=== PATIENT | female | born 1935 | race Caucasian/White ===

== ENCOUNTER → 2016-12-23 | Outpatient (CLI) | payer MEDICARE, OTHER ==
[2016-12-23 13:00] LABS: ALANINE AMINOTRANSFERASE 12 U/L (9-52); ALBUMIN 4.2 g/dL (3.5-5.0); ALKALINE PHOSPHATASE 66 U/L (38-126); ASPARTATE AMINO TRANSFERASE 15 U/L (14-36); BILIRUBIN,TOTAL 0.4 mg/dL (0.2-1.3); CHOLESTEROL 221.64 mg/dL (0-200); Direct HDL 66 mg/dL (>40); TOTAL PROTEIN 6.6 g/dL (6.3-8.2); TRIGLYCERIDES 157 mg/dL (<150)
[2016-12-23 13:11] LABS: DIRECT LDL 115 mg/dL (<100)
[2016-12-23 13:12] LABS: VLDL CHOLESTEROL 31.4 mg/dL (10-31)
== END ==
LOC: OD 10:59
PROVIDERS: ATTEND Specialist
DX: I25.118 Atherosclerotic heart disease of native coronary artery with other forms of angina pectoris (principal); I10 Essential (primary) hypertension; E78.4 Other hyperlipidemia; E78.00 Pure hypercholesterolemia, unspecified; E03.9 Hypothyroidism, unspecified; I34.0 Nonrheumatic mitral (valve) insufficiency; I36.1 Nonrheumatic tricuspid (valve) insufficiency; I73.9 Peripheral vascular disease, unspecified; K21.9 Gastro-esophageal reflux disease without esophagitis; R09.89 Other specified symptoms and signs involving the circulatory and respiratory systems; E78.5 Hyperlipidemia, unspecified; Z79.899 Other long term (current) drug therapy; R06.00 Dyspnea, unspecified; R07.9 Chest pain, unspecified; F17.210 Nicotine dependence, cigarettes, uncomplicated; J44.9 Chronic obstructive pulmonary disease, unspecified; R42 Dizziness and giddiness
CPT/HCPCS: 36415; 80061; 80076

== ENCOUNTER → 2016-12-25 | Outpatient (CLI) | payer MEDICARE, OTHER | LOC: SP 13:48 | PROVIDERS: ATTEND Specialist | DX: R42 Dizziness and giddiness (principal) | CPT/HCPCS: 93880 ==

== ENCOUNTER → 2017-03-26 | Outpatient (CLI) | payer MEDICARE, OTHER ==
[2017-03-26 10:13] LABS: ALANINE AMINOTRANSFERASE 33 U/L (9-52); ALBUMIN 4.4 g/dL (3.5-5.0); ALKALINE PHOSPHATASE 70 U/L (38-126); ASPARTATE AMINO TRANSFERASE 25 U/L (14-36); BILIRUBIN,DIRECT 0.3 mg/dL (0.0-0.4); BILIRUBIN,TOTAL 0.6 mg/dL (0.2-1.3); CHOLESTEROL 181.07 mg/dL (0-200); Direct HDL 89 mg/dL (>40); TOTAL PROTEIN 7.1 g/dL (6.3-8.2); TRIGLYCERIDES 65 mg/dL (<150)
[2017-03-26 10:25] LABS: DIRECT LDL 63 mg/dL (<100)
== END ==
LOC: OD 09:01
PROVIDERS: ATTEND Specialist
DX: I25.10 Atherosclerotic heart disease of native coronary artery without angina pectoris (principal); I10 Essential (primary) hypertension; E78.4 Other hyperlipidemia; E78.00 Pure hypercholesterolemia, unspecified; E03.9 Hypothyroidism, unspecified; F17.210 Nicotine dependence, cigarettes, uncomplicated; I34.0 Nonrheumatic mitral (valve) insufficiency; I36.1 Nonrheumatic tricuspid (valve) insufficiency; I73.9 Peripheral vascular disease, unspecified; J44.9 Chronic obstructive pulmonary disease, unspecified; K21.9 Gastro-esophageal reflux disease without esophagitis; R06.00 Dyspnea, unspecified; R09.89 Other specified symptoms and signs involving the circulatory and respiratory systems; R42 Dizziness and giddiness; Z79.899 Other long term (current) drug therapy
CPT/HCPCS: 36415; 80061; 80076

== ENCOUNTER → 2017-06-22 | Outpatient (CLI) | payer MEDICARE, OTHER ==
--- NOTE | 2017-06-22 17:25 | RADIOLOGY REPORT (SQ) ---
EXAM DESCRIPTION: KNEE LEFT 4 VIEWS COMPLETED DATE/TIME: 06/22/2017 3:46 pm REASON FOR STUDY: PAIN IN LEFT KNEE M25.561 PAIN IN RIGHT KNEE M25.562 PAIN IN LEFT KNEE COMPARISON: None. NUMBER OF VIEWS: Four views. TECHNIQUE: AP, lateral, and both oblique radiographic images acquired of the left knee. LIMITATIONS: None. FINDINGS: MINERALIZATION: Normal. BONES: No acute fracture or dislocation. No worrisome bone lesions. JOINT: Calcific densities are identified at the level of the medial and lateral menisci consistent wi th chondrocalcinosis. SOFT TISSUES: No soft tissue swelling. No radio-opaque foreign body. OTHER: No other significant finding. IMPRESSION: NO RADIOGRAPHIC EVIDENCE OF ACUTE INJURY. Chondrocalcinosis is noted above. Other fin dings as noted above TECHNICAL DOCUMENTATION: JOB ID: [id number] [employer]- All Rights Reserved
--- NOTE | 2017-06-22 17:28 | RADIOLOGY REPORT (SQ) ---
EXAM DESCRIPTION: KNEE RIGHT 4 VIEWS COMPLETED DATE/TIME: 06/22/2017 3:46 pm REASON FOR STUDY: PAIN IN RIGHT KNEE M25.561 PAIN IN RIGHT KNEE M25.562 PAIN IN LEFT KNEE COMPARISON: None. NUMBER OF VIEWS: Four views. TECHNIQUE: AP, lateral, and both oblique radiographic images acquired of the right knee. LIMITATIONS: None. FINDINGS: MINERALIZATION: Normal. BONES: No acute fracture or dislocation. No worrisome bone lesions. JOINT: No effusion. SOFT TISSUES: No soft tissue swelling. No radio-opaque foreign body. OTHER: There are some small punctate calcifications seen in the posterior aspect of the knee joint. IMPRESSION: There are some small cartilaginous or meniscal calcifications seen best on the lateral v iew posteriorly. No acute abnormality is present. TECHNICAL DOCUMENTATION: JOB ID: [id number] [employer]- All Rights Reserved
== END ==
LOC: OD 15:18
PROVIDERS: ATTEND Family Medicine
DX: M25.561 Pain in right knee (principal); M25.562 Pain in left knee

== ENCOUNTER → 2017-08-05 | Outpatient (CLI) | payer MEDICARE, OTHER ==
[2017-08-05 11:59] LABS: ALANINE AMINOTRANSFERASE 27 U/L (9-52); ALBUMIN 4.4 g/dL (3.5-5.0); ALKALINE PHOSPHATASE 74 U/L (38-126); ASPARTATE AMINO TRANSFERASE 22 U/L (14-36); BILIRUBIN,DIRECT 0.4 mg/dL (0.0-0.4); BILIRUBIN,TOTAL 0.6 mg/dL (0.2-1.3); CHOLESTEROL 202.69 mg/dL (0-200); Direct HDL 84 mg/dL (>40); TOTAL PROTEIN 6.7 g/dL (6.3-8.2); TRIGLYCERIDES 92 mg/dL (<150)
[2017-08-05 12:10] LABS: DIRECT LDL 99 mg/dL (<100)
== END ==
LOC: OD 10:53
PROVIDERS: ATTEND Specialist
DX: I25.10 Atherosclerotic heart disease of native coronary artery without angina pectoris (principal); I10 Essential (primary) hypertension; E78.4 Other hyperlipidemia; E78.00 Pure hypercholesterolemia, unspecified; E03.9 Hypothyroidism, unspecified; I34.0 Nonrheumatic mitral (valve) insufficiency; I36.1 Nonrheumatic tricuspid (valve) insufficiency; I73.9 Peripheral vascular disease, unspecified; K21.9 Gastro-esophageal reflux disease without esophagitis; R09.89 Other specified symptoms and signs involving the circulatory and respiratory systems; R07.9 Chest pain, unspecified; R06.00 Dyspnea, unspecified; F17.210 Nicotine dependence, cigarettes, uncomplicated; Z79.899 Other long term (current) drug therapy; J44.9 Chronic obstructive pulmonary disease, unspecified; R42 Dizziness and giddiness
CPT/HCPCS: 36415; 80061; 80076

== ENCOUNTER → 2018-03-11 | Outpatient (CLI) | payer MEDICARE, OTHER ==
[2018-03-11 15:02] LABS: ALANINE AMINOTRANSFERASE 25 U/L (9-52); ALBUMIN 4.2 g/dL (3.5-5.0); ALKALINE PHOSPHATASE 59 U/L (38-126); ASPARTATE AMINO TRANSFERASE 22 U/L (14-36); BILIRUBIN,DIRECT 0.3 mg/dL (0.0-0.4); BILIRUBIN,TOTAL 0.3 mg/dL (0.2-1.3); CHOLESTEROL 173.85 mg/dL (0-200); TOTAL PROTEIN 6.6 g/dL (6.3-8.2); TRIGLYCERIDES 87 mg/dL (<150)
[2018-03-11 15:13] LABS: DIRECT LDL 79 mg/dL (<100)
== END ==
LOC: OD 13:21
PROVIDERS: ATTEND Specialist
DX: I25.10 Atherosclerotic heart disease of native coronary artery without angina pectoris (principal); I10 Essential (primary) hypertension; E78.4 Other hyperlipidemia; E78.00 Pure hypercholesterolemia, unspecified; E03.9 Hypothyroidism, unspecified; I34.0 Nonrheumatic mitral (valve) insufficiency; I36.1 Nonrheumatic tricuspid (valve) insufficiency; I73.9 Peripheral vascular disease, unspecified; K21.9 Gastro-esophageal reflux disease without esophagitis; R09.89 Other specified symptoms and signs involving the circulatory and respiratory systems; R06.00 Dyspnea, unspecified; J44.9 Chronic obstructive pulmonary disease, unspecified; F17.210 Nicotine dependence, cigarettes, uncomplicated; R42 Dizziness and giddiness; Z79.899 Other long term (current) drug therapy
CPT/HCPCS: 36415; 80061; 80076

== ENCOUNTER → 2018-06-14 | Outpatient (CLI) | payer MEDICARE, OTHER ==
--- NOTE | 2018-06-14 17:23 | RADIOLOGY REPORT (SQ) ---
EXAM DESCRIPTION: LUMBAR SPINE COMPLETE COMPLETED DATE/TIME: 06/14/2018 5:05 pm REASON FOR STUDY: LUMBAGO WITH SCIATICA, RIGHT SIDE M54.41 LUMBAGO WITH SCIATICA, RIGHT SIDE COMPARISON: None. NUMBER OF VIEWS: Five views including obliques. TECHNIQUE: AP, lateral, oblique, and sacral radiographic images acquired of the lumbar spine. LIMITATIONS: None. FINDINGS: MINERALIZATION: Normal. SEGMENTATION: Normal. No transitional anatomy. ALIGNMENT: Normal. VERTEBRAE: Maintained height. No fracture or worrisome bone lesion. DISCS: There is mild narrowing at L4-5 and L5-S1. There is narrowing at L1-2. POSTERIOR ELEMENTS: Pedicles and facets are intact. No pars defect or posterior arch defects. HARDWARE: None in the spine. PARASPINAL SOFT TISSUES: Normal. PELVIS: Intact as visualized. No fractures or worrisome bone lesions. SI joints intact. OTHER: No other significant finding. IMPRESSION: Degenerative disc disease. TECHNICAL DOCUMENTATION: JOB ID: [id number] [employer]- All Rights Reserved Reading location - IP/workstation name: [email or web address]
== END ==
LOC: OD 16:22
PROVIDERS: ATTEND Family Medicine
DX: M54.41 Lumbago with sciatica, right side (principal)
CPT/HCPCS: 72110

== ENCOUNTER → 2018-06-30 | Outpatient (CLI) | payer MEDICARE, OTHER ==
[~2018-06-30] MED LIST: ALBUTEROL SULFATE 0.083% NEB 2.5 MG/3 ML AMPUL NEB ONE
== END ==
LOC: RT 10:21
PROVIDERS: ATTEND Specialist
DX: R06.02 Shortness of breath (principal)
CPT/HCPCS: 94729; 94060; A9270

== ENCOUNTER → 2018-10-21 | Outpatient (CLI) | payer MEDICARE, OTHER ==
--- NOTE | 2018-10-21 10:44 | RADIOLOGY REPORT (SQ) ---
EXAM DESCRIPTION: CT HEAD WITHOUT COMPLETED DATE/TIME: 10/21/2018 10:22 am REASON FOR STUDY: OTHER SPEECH DISTURBANCES (R47.89) R47.89 OTHER SPEECH DISTURBANCES COMPARISON: 02/19/2016. TECHNIQUE: Axial images acquired through the brain without intravenous contrast. Images reviewed wi th bone, brain and subdural windows. Additional sagittal and coronal reconstructions were generated. Images stored on PACS. All CT scanners at this facility use dose modulation, iterative reconstruction, and/or weight based d osing when appropriate to reduce radiation dose to as low as reasonably achievable (ALARA). [facility]: Dose Right [facility]: CareDose [facility]: Dose Right [facility]: Teradose 4D [facility]: [employer] RADIATION DOSE: CT Rad equipment meets quality standard of care and radiation dose reduction techniq ues were employed. CTDIvol: 48.6 mGy. DLP: 954 mGy-cm.mGy. LIMITATIONS: None. FINDINGS: VENTRICLES: Prominent. CEREBRUM: No masses. No hemorrhage. No midline shift. Areas of low density in the white matter mos t likely due to chronic micro-vascular ischemic change. No evidence for acute infarction. CEREBELLUM: No masses. No hemorrhage. No alteration of density. No evidence for acute infarction. EXTRAAXIAL SPACES: Age-related involutional change. No fluid collections. No masses. ORBITS AND GLOBE: No intra- or extraconal masses. Normal contour of globe without masses. CALVARIUM: No fracture. PARANASAL SINUSES: Mucous membrane thickening in the sphenoid sinus. No fluid levels. SOFT TISSUES: No mass or hematoma. OTHER: No other significant finding. IMPRESSION: CHRONIC CHANGES OF ATROPHY AND MICROVASCULAR ISCHEMIA. NO ACUTE PROCESS. EVIDENCE OF ACUTE STROKE: NO. TECHNICAL DOCUMENTATION: JOB ID: [id number] Quality ID # 436: Final reports with documentation of one or more dose reduction techniques (e.g., Au tomated exposure control, adjustment of the mA and/or kV according to patient size, use of iterative reconstruction technique) 2010 [employer]- All Rights Reserved Reading location - IP/workstation name: [email or web address]
--- NOTE | 2018-10-21 12:37 | RADIOLOGY REPORT (SQ) ---
EXAM DESCRIPTION: CAROTID DOPPLER COMPLETED DATE/TIME: 10/21/2018 11:25 am REASON FOR STUDY: OTHER SPEECH DISTURBANCES R47.89 OTHER SPEECH DISTURBANCES COMPARISON: 12/25/2016. TECHNIQUE: Grayscale ultrasound, Doppler velocity and spectra, and color Doppler images acquired of the extra-cranial carotid and vertebral arteries. Images stored on PACS. LIMITATIONS: None. FINDINGS: RIGHT CAROTID CCA Velocities: Within normal limits. ICA Velocities Peak systolic 0.88 m/s. End diastolic 0.21 m/s. Proximal ICA/CCA peak systolic ratio 1.6. Spectra normal. No significant plaque. LEFT CAROTID CCA Velocities: Within normal limits. ICA Velocities Peak systolic 1.5 m/s. End diastolic 0.32 m/s. Proximal ICA/CCA peak systolic ratio 2.8. Plaque in the proximal internal carotid artery. VERTEBRAL ARTERIES: Antegrade flow. Normal waveforms. SUBCLAVIAN ARTERIES: No finding. OTHER: No other significant finding. IMPRESSION: PLAQUE IN THE PROXIMAL LEFT INTERNAL CAROTID ARTERY WITH 50- 69% STENOSIS. NO CHANGE FR OM THE PRIOR STUDY. NO HEMODYNAMICALLY SIGNIFICANT STENOSIS ON THE RIGHT SIDE. COMMENT: Quality ID #195: Velocity criteria are extrapolated from the diameter data as defined by t he Society of Radiologists in Ultrasound Consensus Conference. Radiology 2003: 229; 340-346. TECHNICAL DOCUMENTATION: JOB ID: [id number] [employer]- All Rights Reserved Reading location - IP/workstation name: [email or web address]
== END ==
LOC: RAD 09:42
PROVIDERS: ATTEND Family Medicine
DX: R47.89 Other speech disturbances (principal); I65.22 Occlusion and stenosis of left carotid artery
CPT/HCPCS: 70450; 93880

== ENCOUNTER → 2019-10-03 | Outpatient (CLI) | payer MEDICARE, OTHER ==
--- NOTE | 2019-10-03 17:06 | RADIOLOGY REPORT (SQ) ---
EXAM DESCRIPTION: CHEST PA/LATERAL COMPLETED DATE/TIME: 10/03/2019 4:53 pm REASON FOR STUDY: SHORTNESS OF BREATH COMPARISON: 02/18/2019 EXAM PARAMETERS: NUMBER OF VIEWS: two views TECHNIQUE: Digital Frontal and Lateral radiographic views of the chest acquired. RADIATION DOSE: NA LIMITATIONS: none FINDINGS: LUNGS AND PLEURA: No opacities, masses or pneumothorax. No pleural effusion. Hyperinflati on with increased AP diameter and flattening of the hemidiaphragm. MEDIASTINUM AND HILAR STRUCTURES: No masses or contour abnormalities. HEART AND VASCULAR STRUCTURES: Heart normal size. No evidence for failure. Aortic atherosclerosis. BONES: No acute findings. HARDWARE: None in the chest. OTHER: No other significant finding. IMPRESSION: Emphysematous change without evidence of acute cardiopulmonary process. TECHNICAL DOCUMENTATION: JOB ID: [id number] [employer]- All Rights Reserved Reading location - IP/workstation name: [email or web address]
== END ==
LOC: OD 16:23
PROVIDERS: ATTEND Nurse Practitioner Family
DX: J43.9 Emphysema, unspecified (principal); R06.02 Shortness of breath
CPT/HCPCS: 71046

== ENCOUNTER 2019-10-14 17:54 | Inpatient (IN) | payer MEDICARE, OTHER ==
[2019-10-14] MEDS ORDERED: ACETAMINOPHEN 325 MG TABLET PO ONE (18:39)
--- NOTE | 2019-10-14 18:44 | ER Document Report ---
ED Medical Screen (RME) - General Chief Complaint: Headache Stated Complaint: HEADACHE Time Seen by Provider: 10/14/19 18:38 Primary Care Provider: DINAH CORRAL NP [Primary Care Provider] - Follow up as needed TRAVEL OUTSIDE OF THE [place] IN LAST 30 DAYS: No - HPI Notes: 10/14/19 18:40 Patient is an 84-year-old female history of hypertension, tobacco abuse with probable COPD who presents by EMS complaining of severe frontal left-sided headache that began around 4 PM today. During that time she had slurred speech and confusion noted by the family which is since improved otherwise. She is also complaining of chest pain. No injury. No fever. I have treated and performed a rapid initial assessment of this patient. A comprehensive ED assessment and evaluation of the patient, analysis of test results and completion of medical decision making process will be conducted by additional ED providers. I did notify charge and Dr. Munguia. PHYSICAL EXAMINATION: GENERAL: Well-appearing, well-nourished and in no acute distress. A&Ox4. Answers questions appropriately. HEAD: Atraumatic, normocephalic. Non-tender. EYES: Pupils equal round and reactive to light, extraocular movements intact, sclera anicteric, conjunctiva are normal. No nystagmus. ENT: Nares patent and without discharge. oropharynx clear without exudates. No tonsilar hypertrophy or erythema. Moist mucous membranes. NECK: Normal range of motion, supple without lymphadenopathy. No rigidity/meningismus. No midline tenderness. LUNGS: wheezes throughout. no retractions HEART: Regular rate and rhythm Musculoskeletal: Ext b/l: FROM to passive/active. Strength 5+/5. No deficits noted. No bony tenderness of extremities. Extremities: No cyanosis, clubbing, or edema b/l. Peripheral pulses 2+. Capillary refill less than 2 seconds. NEUROLOGICAL: NIH 0. GCS 15. Cranial nerves grossly intact. Normal speech, normal gait. Normal sensory, motor exams. Reflexes 2+ b/l. AMILCAR's negative. Pronator drift negative. Heel/rivers, finger/nose wnl. Romberg neg. PSYCH: Normal mood, normal affect. SKIN: Warm, Dry, normal turgor, no rashes or lesions noted. - Related Data Allergies/Adverse Reactions: trimethoprim [From Proloprim] Allergy (Unknown, Verified 03/15/16 09:51) RASH Home Medications: Blood pressure meds Past Medical History - Social History Chew tobacco use (# tins/day): No Frequency of alcohol use: None Drug Abuse: None - Past Medical History Cardiac Medical History: Reports: Hx Coronary Artery Disease, Hx Hypercholesterolemia, Hx Hypertension Denies: Hx Atrial Fibrillation, Hx Congestive Heart Failure, Hx Heart Attack, Hx Peripheral Vascular Disease, Hx Pulmonary Embolism, Hx Heart Murmur Pulmonary Medical History: Reports: Hx Bronchitis, Hx Pneumonia Denies: Hx Asthma, Hx COPD, Hx Respiratory Failure, Hx Sleep Apnea, Hx Tuberculosis Neurological Medical History: Denies: Hx Cerebrovascular Accident, Hx Seizures, Hx Parkinson's Disease Endocrine Medical History: Reports: Hx Hypothyroidism. Denies: Hx Graves' Disease, Hx Hyperthyroidism Renal/ Medical History: Reports: Hx Ovarian Cysts. Denies: Hx End Stage Renal Disease, Hx Kidney Stones, Hx Peritoneal Dialysis, Hx Pelvic Inflammatory Disease Malignancy Medical History: Denies: Hx Breast Cancer, Hx Cervical Cancer, Hx Leukemia, Hx Lung Cancer, Hx Ovarian Cancer GI Medical History: Reports: Hx Gastroesophageal Reflux Disease, Hx Hiatal Hernia. Denies: Hx Crohn's Disease, Hx Hepatitis, Hx Irritable Bowel, Hx Liver Failure, Hx Pancreatitis, Hx Ulcer Musculoskeltal Medical History: Reports Hx Arthritis, Denies Hx Fibromyalgia, Denies Hx Multiple Sclerosis, Denies Hx Systemic Lupus Erythematosus Skin Medical History: Denies Hx MRSA Psychiatric Medical History: Reports: Hx Depression Denies: Hx Bipolar Disorder, Hx Dementia, Hx Post Traumatic Stress Disorder, Hx Schizophrenia Traumatic Medical History: Reports: Hx Fractures - L ankle Infectious Medical History: Denies: Hx Hepatitis, Hx HIV Past Surgical History: Reports: Hx Appendectomy, Hx Cholecystectomy, Hx Orthopedic Surgery - left ankle, Hx Urinary Tract Surgery - bladder sling, Hx Vascular Surgery - right carotid surgery. Denies: Hx Bowel Surgery, Hx Section, Hx Colostomy, Hx Coronary Artery Bypass Graft, Hx Gastric Bypass Surgery, Hx Herniorrhaphy, Hx Hysterectomy, Hx Mastectomy, Hx Open Heart Surgery, Hx Pacemaker, Hx Tonsillectomy, Hx Tubal Ligation - Immunizations Hx Diphtheria, Pertussis, Tetanus Vaccination: Yes Physical Exam - Vital signs Vitals: Temp Pulse Resp BP Pulse Ox 99.0 F 46 L 17 135/56 H 92 10/14/19 18:19 10/14/19 18:19 10/14/19 18:19 10/14/19 18:19 10/14/19 18:19 Course - Vital Signs Vital signs: Temp Pulse Resp BP Pulse Ox 99.0 F 46 L 17 135/56 H 92 10/14/19 18:29 10/14/19 18:19 10/14/19 18:29 10/14/19 18:19 10/14/19 18:29 Doctor's Discharge - Discharge Referrals: DINAH CORRAL HEARING THERAPIST [Primary Care Provider] - Follow up as needed
--- NOTE | 2019-10-14 19:28 | RADIOLOGY REPORT (SQ) ---
EXAM DESCRIPTION: CHEST SINGLE VIEW COMPLETED DATE/TIME: 10/14/2019 7:19 pm REASON FOR STUDY: CP COMPARISON: 10/03/2018. FINDINGS: Single-view chest AP portable upright. Hyperinflated but clear lungs generally. Stable cardiomediastinal silhouette without evidence of congestive failure. No acute findings detected. TECHNICAL DOCUMENTATION: JOB ID: [id number] Reading location - IP/workstation name: [email or web address]
[2019-10-14 19:32] LABS: ABSOLUTE EOSINOPHILS # (AUTO) 0.1 10^3/uL (0.0-0.6); ABSOLUTE LYMPHOCYTES (AUTO) 1.2 10^3/uL (0.5-4.7); ABSOLUTE MONOCYTES (AUTO) 0.5 10^3/uL (0.1-1.4); ABSOLUTE NEUT (AUTO) 7.8 10^3/uL (1.7-8.2); BASOPHILS % (AUTO) 0.4 % (0-2); EOSINOPHILS % (AUTO) 0.7 % (0-6); HEMATOCRIT 39.1 % (36.0-47.0); HEMOGLOBIN 13.4 g/dL (12.0-15.5); LYMPHOCYTES % (AUTO) 12.4 % (13-45); MEAN CORPUSCULAR HEMOGLOBIN 32.3 pg (27.0-33.4); MEAN CORPUSCULAR HGB CONC 34.2 g/dL (32.0-36.0); MEAN CORPUSCULAR VOLUME 95 fl (80-97); MONOCYTES % (AUTO) 5.4 % (3-13); PLATELET COUNT 310 10^3/uL (150-450); RED BLOOD COUNT 4.13 10^6/uL (3.72-5.28); RED CELL DISTRIBUTION WIDTH 14.2 % (11.5-14.0); SEGMENTED NEUTROPHILS % (AUTO) 81.1 % (42-78); TOTAL CELLS COUNTED % (AUTO) 100 %; WHITE BLOOD COUNT 9.6 10^3/uL (4.0-10.5)
[2019-10-14 19:55] LABS: ALBUMIN 4.1 g/dL (3.5-5.0); ALKALINE PHOSPHATASE 59 U/L (38-126); ANION GAP 5 (5-19); ASPARTATE AMINO TRANSFERASE 24 U/L (14-36); BILIRUBIN,DIRECT 0.2 mg/dL (0.0-0.4); BILIRUBIN,TOTAL 0.3 mg/dL (0.2-1.3); BLOOD UREA NITROGEN 20 mg/dL (7-20); CALCIUM 9.6 mg/dL (8.4-10.2); CARBON DIOXIDE 32 mmol/L (22-30); CHLORIDE 97 mmol/L (98-107); GLUCOSE 104 mg/dL (75-110); POTASSIUM 4.9 mmol/L (3.6-5.0); TOTAL PROTEIN 6.7 g/dL (6.3-8.2)
[2019-10-14 20:03] LABS: INTERNATIONAL RATION (INR) 1.01; PROTHROMBIN TIME 13.3 SEC (11.4-15.4)
[2019-10-14 20:04] LABS: PARTIAL THROMBOPLASTIN TIME 28.8 SEC (23.5-35.8)
--- NOTE | 2019-10-14 20:59 | RADIOLOGY REPORT (SQ) ---
EXAM DESCRIPTION: CT head without contrast CLINICAL HISTORY: 84 years Female, severe headache, resolved slurred speech COMPARISON: None. TECHNIQUE: Axial images of the head were performed without the use of intravenous contrast, with sagittal and coronal reformatted images. This exam was performed according to our departmental dose-optimization program which includes use of Automated Exposure Control, adjustment of the mA and/or kV according to patient size and/or use of iterative reconstruction technique. FINDINGS: No evidence of acute hemorrhage or infarct. No evidence of mass or hydrocephalus. There is cortical atrophy and chronic white matter ischemic changes. The visualized paranasal sinuses are clear. IMPRESSION: No acute finding.
--- NOTE | 2019-10-14 21:38 | EKG REPORT ---
SEVERITY:- OTHERWISE NORMAL ECG - SINUS BRADYCARDIA : Confirmed by: Rakesh Jenkins MD 14-Oct-2019 21:37:28
[2019-10-14 21:50] LABS: APPEARANCE,URINE SLIGHTLY-CLOUDY; BILIRUBIN,URINE NEGATIVE (NEGATIVE); COLOR,URINE YELLOW; GLUCOSE, URINE NEGATIVE (NEGATIVE); KETONES,URINE TRACE mg/dL (NEGATIVE); PROTEIN,URINE 30 mg/dL (NEGATIVE); URINE SPECIFIC GRAVITY 1.019
[2019-10-14] MEDS ORDERED: ASPIRIN 81 MG TABLET, CHEWABLE PO ONE (22:55)
--- NOTE | 2019-10-14 22:57 | ER Document Report ---
ED Headache - General Chief Complaint: Headache Stated Complaint: HEADACHE Time Seen by Provider: 10/14/19 18:38 Information source: Patient Notes: 84-year-old woman presents to the emergency department with a history of sudden onset of speech difficulty and word finding difficulty. Also complained of severe headache and generalized weakness. Symptoms began at approximately 330 afternoon lasted for approximately 3 hours. She denies any prior history of similar episodes. She is a smoker. She takes medications for elevated cholesterol. Denies a history of prior stroke or TIAs. TRAVEL OUTSIDE OF THE [place] IN LAST 30 DAYS: No - Related Data Allergies/Adverse Reactions: trimethoprim [From Proloprim] Allergy (Unknown, Verified 01/15/16 09:51) RASH Home Medications: Blood pressure meds Past Medical History - Social History Smoking Status: Current Every Day Smoker Chew tobacco use (# tins/day): No Frequency of alcohol use: None Drug Abuse: None Family History: Reviewed & Not Pertinent Patient has suicidal ideation: No Patient has homicidal ideation: No - Past Medical History Cardiac Medical History: Reports: Hx Coronary Artery Disease, Hx Hypercholester olemia, Hx Hypertension Denies: Hx Atrial Fibrillation, Hx Congestive Heart Failure, Hx Heart Attack, Hx Peripheral Vascular Disease, Hx Pulmonary Embolism, Hx Heart Murmur Pulmonary Medical History: Reports: Hx Bronchitis, Hx Pneumonia Denies: Hx Asthma, Hx COPD, Hx Respiratory Failure, Hx Sleep Apnea, Hx Tuberculosis Neurological Medical History: Denies: Hx Cerebrovascular Accident, Hx Seizures, Hx Parkinson's Disease Endocrine Medical History: Reports: Hx Hypothyroidism. Denies: Hx Graves' Disease, Hx Hyperthyroidism Renal/ Medical History: Reports: Hx Ovarian Cysts. Denies: Hx End Stage Renal Disease, Hx Kidney Stones, Hx Peritoneal Dialysis, Hx Pelvic Inflammatory Disease Malignancy Medical History: Denies: Hx Breast Cancer, Hx Cervical Cancer, Hx Leukemia, Hx Lung Cancer, Hx Ovarian Cancer GI Medical History: Reports: Hx Gastroesophageal Reflux Disease, Hx Hiatal Hernia. Denies: Hx Crohn's Disease, Hx Hepatitis, Hx Irritable Bowel, Hx Liver Failure, Hx Pancreatitis, Hx Ulcer Musculoskeletal Medical History: Reports Hx Arthritis, Denies Hx Fibromyalgia, Denies Hx Multiple Sclerosis, Denies Hx Systemic Lupus Erythematosus Skin Medical History: Denies Hx MRSA Psychiatric Medical History: Reports: Hx Depression Denies: Hx Bipolar Disorder, Hx Dementia, Hx Post Traumatic Stress Disorder, Hx Schizophrenia Traumatic Medical History: Reports: Hx Fractures - L ankle Infectious Medical History: Denies: Hx Hepatitis, Hx HIV Past Surgical History: Reports: Hx Appendectomy, Hx Cholecystectomy, Hx Hysterectomy, Hx Orthopedic Surgery - left ankle, Hx Urinary Tract Surgery - bladder sling, Hx Vascular Surgery - right carotid surgery. Denies: Hx Bowel Surgery, Hx Section, Hx Colostomy, Hx Coronary Artery Bypass Graft, Hx Gastric Bypass Surgery, Hx Herniorrhaphy, Hx Mastectomy, Hx Open Heart Surgery, Hx Pacemaker, Hx Tonsillectomy, Hx Tubal Ligation - Immunizations Hx Diphtheria, Pertussis, Tetanus Vaccination: Yes Review of Systems - Review of Systems Notes: Constitutional: Negative for fever. HENT: Negative for sore throat. Eyes: Negative for visual changes. Cardiovascular: Negative for chest pain. Respiratory: Negative for shortness of breath. Gastrointestinal: Negative for abdominal pain, vomiting or diarrhea. Genitourinary: Negative for dysuria. Musculoskeletal: Negative for back pain. Skin: Negative for rash. Neurological: + Headaches, + weakness,+ speech difficulty 10 point ROS negative except as marked above and in HPI. Physical Exam - Vital signs Vitals: Temp Pulse Resp BP Pulse Ox 99.0 F 46 L 17 135/56 H 92 10/14/19 18:19 10/14/19 18:19 10/14/19 18:19 10/14/19 18:19 10/14/19 18:19 - Notes Notes: PHYSICAL EXAMINATION: Physical Exam: General: Well-nourished well-developed elderly female in no acute distress HEENT: NC/AT, pupils equal round and reactive to light, MM moist,nares clear, Neck: supple, no adenopathy, no masses. Lungs: clear, + bilateral wheezing, no rales no rhonchi CVS: Regular rate and rhythm no murmur gallop or rub Abdomen: Soft active nontender, no masses, no hepatosplenomegaly Ext: Left shoulder tenderness, No edema clubbing or cyanosis. Neuro: Alert and responsive, moving all 4 extremities on command, cranial nerves intact. Skin: Intact no open lesions, no rash PSYCH: Normal mood, normal affect. Course - Re-evaluation Re-evalutation: 10/14/19 22:54 Patient continues to have a headache, also chest tightness, + wheezing, nebulizer treatment given, I discussed with the patient the need to be brought into the hospital for observation and further testing regarding a possible TIA. Patient also has a 89-year-old temp and urine which reveals UTI. The patient and her family are in agreement with that plan. 10/14/19 22:58 - Vital Signs Vital signs: Temp Pulse Resp BP Pulse Ox 98.7 F 63 20 110/59 L 95 10/18/19 17:02 10/18/19 17:02 10/18/19 17:02 10/18/19 17:02 10/18/19 17:02 - Laboratory Result Diagrams: 10/18/19 06:02 10/18/19 06:02 Laboratory results interpreted by me: 10/14/19 10/14/19 10/14/19 19:25 19:25 21:37 RDW 14.2 H Lymph % (Auto) 12.4 L Seg Neutrophils % 81.1 H Sodium 134.3 L Chloride 97 L Carbon Dioxide 32 H Urine Protein 30 H Urine Ketones TRACE H Urine Urobilinogen 2.0 H Leukocyte Esterase Rfl MODERATE H Urine Ascorbic Acid 40 H 10/14/19 22:57 I have reviewed laboratory data and used this information and the treatment decisions regarding the patient. - Diagnostic Test Radiology reviewed: Image reviewed - CT scan head: No acute findings, no hemorrhage Chest x-ray: Hyperinflation, no infiltrate or effusion., Reports reviewed - EKG Interpretation by Me EKG shows normal: Sinus rhythm - Otherwise no significant abnormalities. Rate: Bradycardia Discharge - Discharge Clinical Impression: TIA (transient ischemic attack), Urinary tract infection Headache Qualifiers: Headache type: unspecified Headache chronicity pattern: acute headache Intractability: not intractable Qualified Code(s): R51 - Headache Condition: Fair Disposition: ADMITTED INPATIENT Admitting Provider: Eliu (Hospitalist) Unit Admitted: [facility]
[2019-10-14] MEDS ORDERED: CEFTRIAXONE INJ 1000 MG VIAL IV ONE (23:08)
[2019-10-14] MEDS ORDERED: IPRATROPIUM/ALBUTEROL 0.5-2.5 MG/3 ML AMPUL NEB ONE (23:11)
[2019-10-14] MEDS ORDERED: ACETAMINOPHEN 325 MG TABLET PO PRN (23:50)
[2019-10-14] MEDS ORDERED: DOCUSATE SODIUM 100 MG CAPSULE PO PRN (23:50)
[2019-10-14] MEDS ORDERED: MAGNESIUM HYDROXIDE SUSP 30 ML UDCUP PO PRN (23:50)
[2019-10-14] MEDS ORDERED: ONDANSETRON HCL INJ/PF 4 MG/2 ML SDV IV PRN (23:50)
[2019-10-14] MEDS ORDERED: HYDRALAZINE HCL INJ/PF 20 MG/1 ML SDV IV PRN (23:53)
[2019-10-14] MEDS ORDERED: MORPHINE SULFATE 10 MG/ML INJ IV PRN (23:53)
[2019-10-14] MEDS ORDERED: NICOTINE 7 MG/24 HR PATCH.TD24 TD PRN (23:54)
[2019-10-15] MEDS ORDERED: ATORVASTATIN CALCIUM 20 MG TABLET PO ONE (00:30)
[2019-10-15 02:08] LABS: CREATINE KINASE MB 0.83 ng/mL (<4.55)
[2019-10-15 02:13] LABS: TROPONIN I < 0.012 ng/mL
[2019-10-15] MEDS: FAMOTIDINE 20 MG TABLET PO SCH ×3 (02:31→22:17)
[2019-10-15] MEDS: TEMAZEPAM 15 MG CAPSULE PO PRN ×2 (02:31→23:49)
--- NOTE | 2019-10-15 03:44 | PDOC H&P ---
History of Present Illness Admission Date/PCP: 10/14/2019 23:24 SANDRITA COATS Patient complains of: Acute dysarthria History of Present Illness: LORELEI STARKS is a 84 year old female who presented via EMS to the emergency room with acute dysarthria. She admits the sudden onset of dysarthria accompanied by a severe throbbing left-sided headache (fronto-facial) at about 4 pM this afternoon. Her dysarthria and headache were associated with expressive aphasia, mild confusion and mild generalized weakness. Patient denied other associated or accompanying signs and symptoms. She denies prior similar episodes. She has not identified any aggravating or ameliorating factors for h er acute dysarthria. The patient's dysarthria, expressive aphasia, confusion and generalized weakness gradually resolved approximately 3 hours after onset, during her emergency room visit. Her headache persisted and is still present at the time of my evaluation. In the emergency room her head CT scan was negative for intracranial hemorrhage. She was noted to have mild pyuria but her evaluation was otherwise unremarkable. She was subsequently admitted to the hospital per the stroke protocol. Past Medical History Cardiac Medical History: Reports: Coronary Artery Disease, Hyperlipidema, Hypertension Denies: Atrial Fibrillation, Congestive Heart Failure, Myocardial Infarction, Peripheral Vascular Disease, Pulmonary Embolism, Heart Murmur Pulmonary Medical History: Reports: Bronchitis, Pneumonia Denies: Asthma, Chronic Obstructive Pulmonary Disease (COPD), Respiratory Failure, Sleep Apnea, Tuberculosis EENT Medical History: Reports: Cataracts - Bilateral, Eyes - Prescription glasses Denies: Ears - Hearing aids Neurological Medical History: Denies: Hemorrhagic CVA, Ischemic CVA, Seizures Endocrine Medical History: Reports: Hypothyroidism Denies: Diabetes Mellitus Type 1, Diabetes Mellitus Type 2, Hyperthyroidism, Obesity Renal/ Medical History: Denies: Chronic Kidney Disease, Nephrolithiasis Malignancy Medical History: Reports: None GI Medical History: Reports: Gastroesophageal Reflux Disease, Hiatal Hernia Denies: Cirrhosis, Crohn's Disease, Hepatitis, Ulcerative Colitis Musculoskeltal Medical History: Reports: Arthritis Denies: Fibromyalgia, Gout Skin Medical History: Denies: Eczema, Psoriasis Psychiatric Medical History: Reports: Depression Denies: Alcohol Dependency, Substance Abuse, Tobacco Dependency Traumatic Medical History: Reports: None Hematology: Denies: Anemia, Bleeding Tendencies Infectious Medical History: Reports: None Past Surgical History Past Surgical History: Reports: Appendectomy, Carotid Endarterectomy - Right, Cholecystectomy, Hysterectomy, Orthopedic Surgery - left ankle, Other - Bilateral cataracts, bladder surgery (suspension), gum surgery Social History Information Source: Patient Lives with: Spouse/Significant other Smoking Status: Current Every Day Smoker - Smokes 2 - 5 cigarettes/day Electronic Cigarette use?: No Frequency of Alcohol Use: None Hx Recreational Drug Use: No Drugs: None Hx Prescription Drug Abuse: No - Advance Directive Resuscitation Status: Full Code Surrogate healthcare decision maker:: Cristina Ryan Family History Family History: CAD, DM, Hypertension, Malignancy, Other - Son with Warnicke's syndrome Parental Family History Reviewed: Yes Children Family History Reviewed: Yes Sibling(s) Family History Reviewed.: Yes Medication/Allergy Home Medications: Alprazolam [Xanax Xr] 0.5 mg PO DAILY PRN 12/10/11 Aspirin [Aspirin 325 mg Tablet] 81 mg PO DAILY 12/10/11 Atorvastatin Calcium [Lipitor 20 Mg Tablet] 20 mg PO QHS 12/10/11 Levothyroxine Sodium [Synthroid 75 Mcg Tablet] 88 mcg PO DAILY 12/10/11 Trazodone HCl 50 mg PO DAILY 07/10/12 Cetirizine HCl [Zyrtec 10 mg Tablet] 10 mg PO DAILY 05/30/13 Clonidine HCl [Catapres 0.1 mg Tablet] 0.1 mg PO BID 05/30/13 Albuterol Sulfate [Ventolin HFA MDI 18 GM] 1 - 2 puff IH Q4H PRN #1 mdi 02/08/14 Citalopram Hydrobromide [Celexa 20 mg Tablet] 20 mg PO DAILY 02/08/14 Tolterodine Tartrate [Detrol] 4 mg PO DAILY 02/08/14 Amlodipine Besylate 2.5 mg PO DAILY 01/14/16 Cholecalciferol (Vitamin D3) [Vitamin D3 1000 Unit Tablet] 1,000 unit PO DAILY 01/14/16 Cyanocobalamin (Vitamin B-12) [Vitamin B12] 1,000 mcg PO DAILY 01/14/16 Esomeprazole Magnesium [Nexium] 20 mg PO DAILY 01/14/16 Krill/[place]-3/Dha/Epa/Lipids [Krill Oil 300 mg Softgel] 1 each PO DAILY 01/14/16 Cyclobenzaprine HCl [Flexeril 10 mg Tablet] 10 mg PO TIDP PRN #15 tab 02/19/16 Oxycodone HCl/Acetaminophen [Percocet 5-325 mg Tablet] 1 - 2 tab PO Q4H PRN #25 tablet 02/19/16 Allergies/Adverse Reactions: trimethoprim [From Proloprim] Allergy (Unknown, Verified 01/15/16 09:51) RASH Review of Systems Constitutional: PRESENT: as per HPI, headache(s), weakness. ABSENT: chills, fever(s) Eyes: ABSENT: visual disturbances, other - Eye pain Ears: ABSENT: hearing changes, other - Ear pain Nose, Mouth, and Throat: PRESENT: as per HPI, headache(s), mouth pain - With smoking. ABSENT: sore throat Cardiovascular: ABSENT: chest pain, palpitations Respiratory: ABSENT: cough, dyspnea Gastrointestinal: ABSENT: abdominal pain, constipation, diarrhea, nausea, vomiting Genitourinary: ABSENT: dysuria, hematuria Musculoskeletal: ABSENT: back pain, joint swelling, muscle weakness Integumentary: ABSENT: pruritus, rash Neurological: PRESENT: abnormal speech, confusion. ABSENT: convulsions, focal weakness, memory loss, syncope Psychiatric: ABSENT: anxiety, depression Endocrine: ABSENT: cold intolerance, heat intolerance Hematologic/Lymphatic: ABSENT: easy bleeding, easy bruising Allergic/Immunologic: ABSENT: seasonal rhinorrhea Physical Exam Vital Signs: Temp Pulse Resp BP Pulse Ox 99.0 F 45 L 17 155/72 H 99 10/14/19 18:29 10/14/19 19:18 10/14/19 19:18 10/14/19 19:18 10/14/19 19:18 Intake & Output 10/12/19 10/13/19 10/14/19 23:59 23:59 23:59 Weight 65.771 kg General appearance: PRESENT: no acute distress, cooperative Head exam: PRESENT: atraumatic, normocephalic Eye exam: PRESENT: conjunctiva pink, EOMI. ABSENT: conjunctival injection, scleral icterus Ear exam: PRESENT: normal external ear exam. ABSENT: bleeding, drainage Mouth exam: PRESENT: dry mucosa, neck supple Neck exam: ABSENT: thyromegaly, tracheal deviation Respiratory exam: PRESENT: decreased breath sounds - Mildly decreased breath sounds throughout all lung wick consistent with mild to moderate COPD, prolonged expiratory phas - Mildly prolonged expiratory phase throughout all lung wick, symmetrical, unlabored, wheezes - Mild wheezes throughout all lung wick Cardiovascular exam: PRESENT: bradycardia, RRR. ABSENT: clicks, gallop, rubs Pulses: PRESENT: normal radial pulses, normal dorsalis pedis pul Vascular exam: PRESENT: normal capillary refill. ABSENT: pallor GI/Abdominal exam: PRESENT: normal bowel sounds, soft. ABSENT: tenderness Rectal exam: PRESENT: deferred Extremities exam: ABSENT: joint swelling, pedal edema Musculoskeletal exam: ABSENT: deformity, dislocation Neurological exam: PRESENT: alert, oriented to person, oriented to place, oriented to time, oriented to situation, CN II-XII grossly intact, other - Mild short-term memory deficits noted. ABSENT: motor sensory deficit Psychiatric exam: PRESENT: appropriate affect, normal mood Skin exam: PRESENT: dry, intact, warm. ABSENT: jaundice, rash, urticaria Results Laboratory Results: 10/14/19 19:25 10/14/19 19:25 10/14/19 10/14/19 10/14/19 19:25 19:25 21:37 WBC 9.6 RBC 4.13 Hgb 13.4 Hct 39.1 MCV 95 MCH 32.3 MCHC 34.2 RDW 14.2 H Plt Count 310 Seg Neutrophils % 81.1 H Sodium 134.3 L Potassium 4.9 Chloride 97 L Carbon Dioxide 32 H Anion Gap 5 BUN 20 Creatinine 0.70 Est GFR ( Amer) > 60 Glucose 104 Calcium 9.6 Total Bilirubin 0.3 AST 24 Alkaline Phosphatase 59 Total Protein 6.7 Albumin 4.1 Urine Color YELLOW Urine Appearance SLIGHTLY-CLOUDY Urine pH 7.0 Ur Specific [place] 1.019 Urine Protein 30 H Urine Glucose (UA) NEGATIVE Urine Ketones TRACE H Urine Blood NEGATIVE Urine RBC (Auto) 1 10/14/19 19:25 Troponin I < 0.012 Impressions: Head CT 10/14/19 18:38 IMPRESSION: No acute finding. Assessment and Plan - Diagnosis (1) TIA (transient ischemic attack) Is this a current diagnosis for this admission?: Yes (2) Headache Qualifiers: Headache type: unspecified Headache chronicity pattern: acute headache Intractability: not intractable Qualified Code(s): R51 - Headache Is this a current diagnosis for this admission?: Yes (3) Pyuria Is this a current diagnosis for this admission?: Yes (4) Hypothyroidism Qualifiers: Hypothyroidism type: unspecified Qualified Code(s): E03.9 - Hypothyroidism, unspecified Is this a current diagnosis for this admission?: Yes (5) Hypertension Qualifiers: Hypertension type: essential hypertension Qualified Code(s): I10 - Ess ential (primary) hypertension Is this a current diagnosis for this admission?: Yes (6) Hyperlipidemia Qualifiers: Hyperlipidemia type: unspecified Qualified Code(s): E78.5 - Hyperlipidemia, unspecified Is this a current diagnosis for this admission?: Yes (7) Coronary artery disease Qualifiers: Coronary Disease-Associated Artery/Lesion type: [place] artery [place] vs. transplanted heart: [place] heart Associated angina: without angina Qualified Code(s): I25.10 - Atherosclerotic heart disease of [place] coronary artery without angina pectoris Is this a current diagnosis for this admission?: Yes (8) GERD (gastroesophageal reflux disease) Qualifiers: Esophagitis presence: esophagitis presence not specified Qualified Code(s): K21.9 - Gastro-esophageal reflux disease without esophagitis Is this a current diagnosis for this admission?: Yes (9) Chronic obstructive pulmonary disease Qualifiers: COPD type: unspecified COPD Qualified Code(s): J44.9 - Chronic obstructive pulmonary disease, unspecified Is this a current diagnosis for this admission?: Yes (10) Tobacco use disorder, mild, abuse Is this a current diagnosis for this admission?: Yes - Plan Summary Summary: Patient is admitted to the stroke protocol on [facility]. She will receive routine supportive and symptomatic cares. She will have an MRI of the brain with a carotid Doppler and an echocardiogram performed. She will be seen in consultation by the stroke nurse, social work administrator, PT, OT, speech therapy and the registered dietitian. She will be placed on a antiplatelet agent and her other medications for chronic medical problems will be continued as appropriate. She will use morphine sulfate 2 to 4 mg IV every 2 hours as needed for pain control. Routine laboratory evaluations will be obtained through the stroke protocol. Smoking cessation is advised and counseled briefly at the bedside. A nicotine replacement patch is available for the patient's use, if desired - Time Time Spent with patient: 25-34 minutes Smoking Cessation Education: 3 to 10 minutes Medications reviewed and adjusted accordingly: Yes Anticipated discharge: Home with Homehealth - Inpatient Certification Based on my medical assessment, after consideration of the patient's comorbidities, presenting symptoms, or acuity I expect that the services needed warrant INPATIENT care.: Yes I certify that my determination is in accordance with my understanding of Medicare's requirements for reasonable and necessary INPATIENT services [42 CFR 412.3e].: Yes Medical Necessity: Significant Comorbidiites Make Outpatient Treatment Too Risky, Need Close Monitoring Due to Risk of Patient Decompensation, Need For Continuous Telemetry Monitoring, Need for Neurological Checks, Risk of Compl ication if Not Cared For in Hospital
[2019-10-15] MEDS: LEVOTHYROXINE SODIUM 0.075 MG TABLET PO SCH (05:55)
[2019-10-15] MEDS: MORPHINE SULFATE 10 MG/ML INJ IV PRN ×4 (05:56→23:51)
[2019-10-15] MEDS: HEPARIN SOD (PORCINE) 5,000 UNIT/ML 1 ML VIAL SUBCUT SCH ×3 (06:06→22:17)
--- NOTE | 2019-10-15 08:09 | PDOC PROGRESS REPORT ---
Subjective Progress Note for:: 10/15/19 Subjective:: 10/15/2019-no complaints this a.m. Reason For Visit: TRANSIENT ISCHEMIC ATTACK WITH DYSARTHRIA AND Physical Exam Vital Signs: Temp Pulse Resp BP Pulse Ox 97.9 F 47 L 16 112/68 96 10/15/19 04:47 10/15/19 07:00 10/15/19 06:00 10/15/19 06:00 10/15/19 06:00 Intake & Output 10/14/19 10/15/19 10/16/19 06:59 06:59 06:59 Intake Total 100 Balance 100 Weight 59.2 kg General appearance: PRESENT: no acute distress, well-developed, well-nourished Head exam: PRESENT: atraumatic, normocephalic Eye exam: PRESENT: conjunctiva pink, EOMI, PERRLA. ABSENT: scleral icterus Ear exam: PRESENT: normal external ear exam Mouth exam: PRESENT: moist, tongue midline Neck exam: ABSENT: carotid bruit, JVD, lymphadenopathy, thyromegaly Respiratory exam: PRESENT: clear to auscultation thuy. ABSENT: rales, rhonchi, wheezes Cardiovascular exam: PRESENT: RRR. ABSENT: diastolic murmur, rubs, systolic murmur Pulses: PRESENT: normal dorsalis pedis pul Vascular exam: PRESENT: normal capillary refill GI/Abdominal exam: PRESENT: normal bowel sounds, soft. ABSENT: distended, guarding, mass, organolmegaly, rebound, tenderness Rectal exam: PRESENT: deferred Extremities exam: PRESENT: full ROM. ABSENT: calf tenderness, clubbing, pedal edema Neurological exam: PRESENT: alert, awake, oriented to person, oriented to place, oriented to time, oriented to situation, CN II-XII grossly intact. ABSENT: m otor sensory deficit Psychiatric exam: PRESENT: appropriate affect, normal mood. ABSENT: homicidal ideation, suicidal ideation Skin exam: PRESENT: dry, intact, warm. ABSENT: cyanosis, rash Results Laboratory Results: 10/14/19 19:25 10/14/19 19:25 10/14/19 10/14/19 10/14/19 19:25 19:25 21:37 WBC 9.6 RBC 4.13 Hgb 13.4 Hct 39.1 MCV 95 MCH 32.3 MCHC 34.2 RDW 14.2 H Plt Count 310 Seg Neutrophils % 81.1 H Sodium 134.3 L Potassium 4.9 Chloride 97 L Carbon Dioxide 32 H Anion Gap 5 BUN 20 Creatinine 0.70 Est GFR ( Amer) > 60 Glucose 104 Calcium 9.6 Total Bilirubin 0.3 AST 24 Alkaline Phosphatase 59 Total Protein 6.7 Albumin 4.1 Urine Color YELLOW Urine Appearance SLIGHTLY-CLOUDY Urine pH 7.0 Ur Specific [place] 1.019 Urine Protein 30 H Urine Glucose (UA) NEGATIVE Urine Ketones TRACE H Urine Blood NEGATIVE Urine RBC (Auto) 1 10/14/19 10/15/19 10/15/19 19:25 01:20 01:20 Creatine Kinase 35 CK-MB (CK-2) 0.83 Troponin I < 0.012 < 0.012 Impressions: Head CT 10/14/19 18:38 IMPRESSION: No acute finding. Assessment and Plan - Diagnosis (1) TIA (transient ischemic attack) Is this a current diagnosis for this admission?: Yes Plan: 10/15/2019-no deficits at this time. Awaiting further diagnostics. (2) Chronic obstructive pulmonary disease Qualifiers: COPD type: unspecified COPD Qualified Code(s): J44.9 - Chronic obstructive pulmonary disease, unspecified Is this a current diagnosis for this admission?: Yes Plan: 10/15/2019-chronic stable not in acute exacerbation (3) Coronary artery disease Qualifiers: Coronary Disease-Associated Artery/Lesion type: [place] artery [place] vs. transplanted heart: [place] heart Associated angina: without angina Qualified Code(s): I25.10 - Atherosclerotic heart disease of [place] coronary artery without angina pectoris Is this a current diagnosis for this admission?: Yes Plan: 10/15/2019-stable (4) GERD (gastroesophageal reflux disease) Qualifiers: Esophagitis presence: esophagitis presence not specified Qualified Code(s): K21.9 - Gastro-esophageal reflux disease without esophagitis Is this a current diagnosis for this admission?: Yes Plan: 10/15/2019-stable (5) Headache Qualifiers: Headache type: unspecified Headache chronicity pattern: acute headache Intractability: not intractable Qualified Code(s): R51 - Headache Is this a current diagnosis for this admission?: Yes Plan: 10/15/2019-resolved stable (6) Hyperlipidemia Qualifiers: Hyperlipidemia type: unspecified Qualified Code(s): E78.5 - Hyperlipidemia, unspecified Is this a current diagnosis for this admission?: Yes Plan: 10/15/2019-stable (7) Hypertension Qualifiers: Hypertension type: essential hypertension Qualified Code(s): I10 - Essential (primary) hypertension Is this a current diagnosis for this admission?: Yes Plan: 10/15/2019-stable (8) Hypothyroidism Qualifiers: Hypothyroidism type: unspecified Qualified Code(s): E03.9 - Hypothyroidism, unspecified Is this a current diagnosis for this admission?: Yes Plan: 10/15/2019-awaiting TSH (9) Pyuria Is this a current diagnosis for this admission?: Yes Plan: 10/15/2019-stable (10) Tobacco use disorder, mild, abuse Is this a current diagnosis for this admission?: Yes Plan: 10/15/2019-continue smoking cessation education (11) UTI (urinary tract infection) Is this a current diagnosis for this admission?: Yes Plan: 10/15/2019-Rocephin 1 g IV daily. Await cultures - Plan Summary Summary: Patient is admitted to the stroke protocol on [facility]. She will receive routine supportive and symptomatic cares. She will have an MRI of the brain with a carotid Doppler and an echocardiogram performed. She will be seen in consultation by the stroke nurse, social media coordinator, PT, OT, speech therapy and the registered dietitian. She will be placed on a antiplatelet agent and her other medications for chronic medical problems will be continued as appropriate. She will use morphine sulfate 2 to 4 mg IV every 2 hours as needed for pain control. Routine laboratory evaluations will be obtained through the stroke protocol. Smoking cessation is advised and counseled briefly at the bedside. A nicotine replacement patch is available for the patient's use, if desired - Time Time Spent with patient: 15-24 minutes - Inpatient Certification Based on my medical assessment, after consideration of the patient's comorbidities, presenting symptoms, or acuity I expect that the services needed warrant INPATIENT care.: Yes I certify that my determination is in accordance with my understanding of Medicare's requirements for reasonable and necessary INPATIENT services [42 CFR 412.3e].: Yes Medical Necessity: Need for IV Antibiotics
[2019-10-15 08:16] LABS: HEMATOCRIT 36.5 % (36.0-47.0); HEMOGLOBIN 12.5 g/dL (12.0-15.5); MEAN CORPUSCULAR HEMOGLOBIN 32.4 pg (27.0-33.4); MEAN CORPUSCULAR HGB CONC 34.2 g/dL (32.0-36.0); MEAN CORPUSCULAR VOLUME 95 fl (80-97); PLATELET COUNT 267 10^3/uL (150-450); RED BLOOD COUNT 3.84 10^6/uL (3.72-5.28); WHITE BLOOD COUNT 6.8 10^3/uL (4.0-10.5)
[2019-10-15 08:27] LABS: CHOLESTEROL 147.68 mg/dL (0-200); TRIGLYCERIDES 79 mg/dL (<150)
[2019-10-15 08:28] LABS: ANION GAP 8 (5-19); BLOOD UREA NITROGEN 18 mg/dL (7-20); CALCIUM 9.7 mg/dL (8.4-10.2); CARBON DIOXIDE 31 mmol/L (22-30); CHLORIDE 96 mmol/L (98-107); CREATINE KINASE 45 U/L (30-135); GLUCOSE 94 mg/dL (75-110); POTASSIUM 4.5 mmol/L (3.6-5.0)
[2019-10-15 08:38] LABS: DIRECT LDL 77 mg/dL (<100)
[2019-10-15 08:39] LABS: CREATINE KINASE MB 0.91 ng/mL (<4.55)
[2019-10-15 08:40] LABS: TROPONIN I < 0.012 ng/mL
[2019-10-15] MEDS: CLONIDINE HCL 0.1 MG TABLET PO SCH ×2 (10:08→17:44)
[2019-10-15] MEDS: AMLODIPINE BESYLATE 5 MG TABLET PO SCH (10:08)
[2019-10-15] MEDS: CLOPIDOGREL BISULFATE 75 MG TABLET PO SCH (10:09)
[2019-10-15] MEDS: ASPIRIN 81 MG TABLET, ENT COATED PO SCH (10:09)
[2019-10-15] MEDS: CEFTRIAXONE 1 GM/D5W RTU 1 GM/50 ML RTUPB IV SCH (10:12)
[2019-10-15] MEDS ORDERED: LORAZEPAM INJ 2 MG/1 ML VIAL ONE (13:09)
[2019-10-15] MEDS: LEVALBUTEROL HCL NEB 0.63 MG/3 ML AMPUL NEB PRN ×2 (14:08→21:10)
[2019-10-15 14:13] LABS: TROPONIN I < 0.012 ng/mL
--- NOTE | 2019-10-15 14:22 | RADIOLOGY REPORT (SQ) ---
EXAM DESCRIPTION: MRI HEAD WITHOUT COMPLETED DATE/TIME: 10/15/2019 1:54 pm REASON FOR STUDY: TIA with left sided headache COMPARISON: CT from yesterday. TECHNIQUE: Multiplanar imaging includes non-contrasted T1, T2, FLAIR, and diffusion with ADC map seq uences. Images stored on PACS. LIMITATIONS: None. FINDINGS: ANATOMY: No anomalies. Normal vascular flow voids. Pituitary fossa normal. CSF SPACES: Atrophy induced prominence of ventricles and CSF spaces. CEREBRUM: High signal intensity lesions scattered throughout the white matter on FLAIR imaging with d istribution suggesting micro-vascular ischemic changes. No evidence of hemorrhage, mass, or extraaxi al fluid collection. POSTERIOR FOSSA: No signal alteration. No hemorrhage. No edema, masses or mass effect. Internal flavio tory canals, cerebello-pontine angles, mastoids normal. DIFFUSION IMAGING: Negative for acute or sub-acute infarction. ORBITS: No masses. Globes normal. PARANASAL SINUSES: No fluid levels. Mucosa normal. OTHER: No other significant finding. IMPRESSION: ATROPHY AND CHRONIC MICRO-VASCULAR ISCHEMIC CHANGES. OTHERWISE NORMAL MRI OF THE BRAIN W ITHOUT INTRAVENOUS GADOLINIUM CONTRAST. EVIDENCE OF ACUTE STROKE: NO. TECHNICAL DOCUMENTATION: JOB ID: [id number] [employer]- All Rights Reserved Reading location - IP/workstation name: [email or web address]
[2019-10-15] MEDS: ATORVASTATIN CALCIUM 20 MG TABLET PO SCH (22:17)
[2019-10-16] MEDS ORDERED: CHLORPROMAZINE HCL INJ 25 MG/1 ML AMPULE ONE (01:55)
[2019-10-16] MEDS ORDERED: CHLORPROMAZINE HCL INJ 25 MG/1 ML AMPULE IV ONE (02:30)
[2019-10-16] MEDS: HEPARIN SOD (PORCINE) 5,000 UNIT/ML 1 ML VIAL SUBCUT SCH ×4 (05:03→21:40)
[2019-10-16] MEDS: LEVOTHYROXINE SODIUM 0.075 MG TABLET PO SCH (05:05)
--- NOTE | 2019-10-16 08:57 | PDOC PROGRESS REPORT ---
Subjective Progress Note for:: 10/16/19 Subjective:: 10/15/2019-no complaints this a.m. 10/16/2019--patient had a episode of extreme confusion overnight. Was placed in two-point restraints. Reason For Visit: TRANSIENT ISCHEMIC ATTACK WITH DYSARTHRIA AND Physical Exam Vital Signs: Temp Pulse Resp BP Pulse Ox 98.9 F 67 16 138/74 H 95 10/16/19 01:02 10/16/19 07:00 10/16/19 04:00 10/16/19 04:00 10/16/19 04:00 Intake & Output 10/15/19 10/16/19 10/17/19 06:59 06:59 06:59 Intake Total 100 722 Output Total 0 Balance 100 722 Weight 59.2 kg 69.1 kg General appearance: PRESENT: no acute distress, well-developed, well-nourished Neck exam: ABSENT: carotid bruit, JVD, lymphadenopathy, thyromegaly Respiratory exam: PRESENT: clear to auscultation thuy. ABSENT: rales, rhonchi, wheezes Cardiovascular exam: PRESENT: RRR. ABSENT: diastolic murmur, rubs, systolic murmur Pulses: PRESENT: +1 pedal pulses bilateral Vascular exam: PRESENT: normal capillary refill GI/Abdominal exam: PRESENT: normal bowel sounds, soft. ABSENT: distended, guarding, mass, organolmegaly, rebound, tenderness Extremities exam: PRESENT: full ROM. ABSENT: calf tenderness, clubbing, pedal edema Neurological exam: PRESENT: awake Psychiatric exam: PRESENT: agitated Skin exam: PRESENT: dry, intact, warm. ABSENT: cyanosis, rash Results Laboratory Results: 10/15/19 07:54 10/15/19 07:54 10/15/19 07:54 TSH 1.71 10/14/19 10/15/19 10/15/19 19:25 01:20 01:20 Creatine Kinase 35 CK-MB (CK-2) 0.83 Troponin I < 0.012 < 0.012 10/15/19 10/15/19 10/15/19 07:54 07:54 13:17 Creatine Kinase 45 61 CK-MB (CK-2) 0.91 Troponin I < 0.012 10/15/19 13:17 Creatine Kinase CK-MB (CK-2) 1.20 Troponin I < 0.012 Impressions: Head CT 10/14/19 18:38 IMPRESSION: No acute finding. Head MRI 10/15/19 00:00 IMPRESSION: ATROPHY AND CHRONIC MICRO-VASCULAR ISCHEMIC CHANGES. OTHERWISE NORMAL MRI OF THE BRAIN WITHOUT INTRAVENOUS GADOLINIUM CONTRAST. EVIDENCE OF ACUTE STROKE: NO. Assessment and Plan - Diagnosis (1) TIA (transient ischemic attack) Is this a current diagnosis for this admission?: Yes Plan: 10/15/2019-no deficits at this time. Awaiting further diagnostics. 10/16/2019-stable. Patient did have MRI which was negative. Awaiting carotid Doppler and echocardiogram. (2) Chronic obstructive pulmonary disease Qualifiers: COPD type: unspecified COPD Qualified Code(s): J44.9 - Chronic obstructive pulmonary disease, unspecified Is this a current diagnosis for this admission?: Yes Plan: 10/15/2019-chronic stable not in acute exacerbation 10/16/2019-stable at this time not in acute exacerbation (3) Coronary artery disease Qualifiers: Coronary Disease-Associated Artery/Lesion type: [place] artery [place] vs. transplanted heart: [place] heart Associated angina: without angina Qualified Code(s): I25.10 - Atherosclerotic heart disease of [place] coronary artery without angina pectoris Is this a current diagnosis for this admission?: Yes Plan: 10/15/2019-stable 10/16/2019-stable (4) GERD (gastroesophageal reflux disease) Qualifiers: Esophagitis presence: esophagitis presence not specified Qualified Code(s): K21.9 - Gastro-esophageal reflux disease without esophagitis Is this a current diagnosis for this admission?: Yes Plan: 10/15/2019-stable 10/16/2019-stable (5) Headache Qualifiers: Headache type: unspecified Headache chronicity pattern: acute headache Intractability: not intractable Qualified Code(s): R51 - Headache Is this a current diagnosis for this admission?: Yes Plan: 10/15/2019-resolved stable 10/16/2019-resolved stable (6) Hyperlipidemia Qualifiers: Hyperlipidemia type: unspecified Qualified Code(s): E78.5 - Hyperlipidemia, unspecified Is this a current diagnosis for this admission?: Yes Plan: 10/15/2019-stable 10/16/2019-stable (7) Hypertension Qualifiers: Hypertension type: essential hypertension Qualified Code(s): I10 - Essential (primary) hypertension Is this a current diagnosis for this admission?: Yes Plan: 10/15/2019-stable 10/16/2019-stable (8) Hypothyroidism Qualifiers: Hypothyroidism type: unspecified Qualified Code(s): E03.9 - Hypothyroidism, unspecified Is this a current diagnosis for this admission?: Yes Plan: 10/15/2019-awaiting TSH 10/16/2019-stable (9) Pyuria Is this a current diagnosis for this admission?: Yes Plan: 10/15/2019-stable 10/16/2019-stable (10) Tobacco use disorder, mild, abuse Is this a current diagnosis for this admission?: Yes Plan: 10/15/2019-continue smoking cessation education 10/16/2019-continue smoking cessation education (11) UTI (urinary tract infection) Is this a current diagnosis for this admission?: Yes Plan: 10/15/2019-Rocephin 1 g IV daily. Await cultures 10/16/2018-continue Rocephin. Culture still pending - Plan Summary Summary: Patient is admitted to the stroke protocol on [facility]U. She will receive routine supportive and symptomatic cares. She will have an MRI of the brain with a carotid Doppler and an echocardiogram performed. She will be seen in consultation by the stroke nurse, social contact worker, PT, OT, speech therapy and the registered dietitian. She will be placed on a antiplatelet agent and her other medications for chronic medical problems will be continued as appropriate. She will use morphine sulfate 2 to 4 mg IV every 2 hours as needed for pain control. Routine laboratory evaluations will be obtained through the stroke protocol. Smoking cessation is advised and counseled briefly at the bedside. A nicotine replacement patch is available for the patient's use, if desired - Time Time Spent with patient: 15-24 minutes - Inpatient Certification Based on my medical assessment, after consideration of the patient's comorbidities, presenting symptoms, or acuity I expect that the services needed warrant INPATIENT care.: Yes I certify that my determination is in accordance with my understanding of Medicare's requirements for reasonable and necessary INPATIENT services [42 CFR 412.3e].: Yes Medical Necessity: Significant Comorbidiites Make Outpatient Treatment Too Risky, Need Close Monitoring Due to Risk of Patient Decompensation, Need for IV Antibiotics
[2019-10-16] MEDS ORDERED: CHLORPROMAZINE HCL INJ 25 MG/1 ML AMPULE IV SCH (10:00)
[2019-10-16] MEDS ORDERED: LORAZEPAM INJ 2 MG/1 ML VIAL IV PRN (10:47)
[2019-10-16] MEDS: ASPIRIN 81 MG TABLET, ENT COATED PO SCH (11:50)
[2019-10-16] MEDS: CLONIDINE HCL 0.1 MG TABLET PO SCH ×3 (11:50→21:37)
[2019-10-16] MEDS: AMLODIPINE BESYLATE 5 MG TABLET PO SCH (11:50)
[2019-10-16] MEDS: FAMOTIDINE 20 MG TABLET PO SCH ×2 (11:51→21:40)
[2019-10-16] MEDS: CLOPIDOGREL BISULFATE 75 MG TABLET PO SCH (11:51)
[2019-10-16] MEDS: CEFTRIAXONE 1 GM/D5W RTU 1 GM/50 ML RTUPB IV SCH (11:53)
[2019-10-16] MEDS ORDERED: ZIPRASIDONE MESYLATE INJ/PF 20 MG SDV IM ONE (13:12)
[2019-10-16] MEDS: ATORVASTATIN CALCIUM 20 MG TABLET PO SCH (21:40)
[2019-10-17] MEDS ORDERED: HALOPERIDOL LACTATE INJ 5 MG/1 ML VIAL IV PRN (03:40)
[2019-10-17] MEDS ORDERED: LORAZEPAM INJ 2 MG/1 ML VIAL IV PRN (03:40)
[2019-10-17] MEDS: HEPARIN SOD (PORCINE) 5,000 UNIT/ML 1 ML VIAL SUBCUT SCH ×3 (05:22→23:11)
[2019-10-17] MEDS: LEVOTHYROXINE SODIUM 0.075 MG TABLET PO SCH (05:23)
--- NOTE | 2019-10-17 09:06 | PDOC PROGRESS REPORT ---
Subjective Progress Note for:: 10/17/19 Subjective:: 10/15/2019-no complaints this a.m. 10/16/2019--patient had a episode of extreme confusion overnight. Was placed in two-point restraints. 10/17/2019-patient remains confused this a.m. Reason For Visit: TRANSIENT ISCHEMIC ATTACK WITH DYSARTHRIA AND Physical Exam Vital Signs: Temp Pulse Resp BP Pulse Ox 98.8 F 81 17 148/53 H 92 10/17/19 08:05 10/17/19 08:05 10/17/19 08:05 10/17/19 08:05 10/17/19 08:05 Intake & Output 10/16/19 10/17/19 10/18/19 06:59 06:59 06:59 Intake Total 722 100 Output Total 0 Balance 722 100 Weight 69.1 kg 69 kg General appearance: PRESENT: no acute distress, well-developed, well-nourished Neck exam: ABSENT: carotid bruit, JVD, lymphadenopathy, thyromegaly Respiratory exam: PRESENT: clear to auscultation thuy. ABSENT: rales, rhonchi, wheezes Cardiovascular exam: PRESENT: RRR. ABSENT: diastolic murmur, rubs, systolic murmur Pulses: PRESENT: +1 pedal pulses bilateral Vascular exam: PRESENT: normal capillary refill GI/Abdominal exam: PRESENT: normal bowel sounds, soft. ABSENT: distended, guarding, mass, organolmegaly, rebound, tenderness Extremities exam: PRESENT: full ROM. ABSENT: calf tenderness, clubbing, pedal edema Neurological exam: PRESENT: alert, awake, oriented to person, oriented to place, oriented to time, oriented to situation, CN II-XII grossly intact. ABSENT: motor sensory deficit Psychiatric exam: PRESENT: appropriate affect, normal mood. ABSENT: homicidal ideation, suicidal ideation Skin exam: PRESENT: dry, intact, warm. ABSENT: cyanosis, rash Results Laboratory Results: 10/15/19 07:54 10/15/19 07:54 10/14/19 21:37 Clean Catch Midstream Urine Culture - Final C.albicans/C.dubliniensis 10/14/19 10/15/19 10/15/19 19:25 01:20 01:20 Creatine Kinase 35 CK-MB (CK-2) 0.83 Troponin I < 0.012 < 0.012 10/15/19 10/15/19 10/15/19 07:54 07:54 13:17 Creatine Kinase 45 61 CK-MB (CK-2) 0.91 Troponin I < 0.012 10/15/19 13:17 Creatine Kinase CK-MB (CK-2) 1.20 Troponin I < 0.012 Impressions: Head CT 10/14/19 18:38 IMPRESSION: No acute finding. Head MRI 10/15/19 00:00 IMPRESSION: ATROPHY AND CHRONIC MICRO-VASCULAR ISCHEMIC CHANGES. OTHERWISE NORMAL MRI OF THE BRAIN WITHOUT INTRAVENOUS GADOLINIUM CONTRAST. EVIDENCE OF ACUTE STROKE: NO. Assessment and Plan - Diagnosis (1) TIA (transient ischemic attack) Is this a current diagnosis for this admission?: Yes Plan: 10/15/2019-no deficits at this time. Awaiting further diagnostics. 10/16/2019-stable. Patient did have MRI which was negative. Awaiting carotid Doppler and echocardiogram. 10/17/2019-continue await Doppler and echocardiogram results (2) Chronic obstructive pulmonary disease Qualifiers: COPD type: unspecified COPD Qualified Code(s): J44.9 - Chronic obstructive pulmonary disease, unspecified Is this a current diagnosis for this admission?: Yes Plan: 10/15/2019-chronic stable not in acute exacerbation 10/16/2019-stable at this time not in acute exacerbation 10/17/2019-stable (3) Coronary artery disease Qualifiers: Coronary Disease-Associated Artery/Lesion type: [place] artery [place] vs. transplanted heart: [place] heart Associated angina: without angina Qualified Code(s): I25.10 - Atherosclerotic heart disease of [place] coronary artery without angina pectoris Is this a current diagnosis for this admission?: Yes Plan: 10/15/2019-stable 10/16/2019-stable 10/17/2019-stable (4) GERD (gastroesophageal reflux disease) Qualifiers: Esophagitis presence: esophagitis presence not specified Qualified Code(s): K21.9 - Gastro-esophageal reflux disease without esophagitis Is this a current diagnosis for this admission?: Yes Plan: 10/15/2019-stable 10/16/2019-stable 10/17/2019-stable (5) Headache Qualifiers: Headache type: unspecified Headache chronicity pattern: acute headache In tractability: not intractable Qualified Code(s): R51 - Headache Is this a current diagnosis for this admission?: Yes Plan: 10/15/2019-resolved stable 10/16/2019-resolved stable 10/17/2019-stable (6) Hyperlipidemia Qualifiers: Hyperlipidemia type: unspecified Qualified Code(s): E78.5 - Hyperlipidemia, unspecified Is this a current diagnosis for this admission?: Yes Plan: 10/15/2019-stable 10/16/2019-stable 10/17/2019-stable (7) Hypertension Qualifiers: Hypertension type: essential hypertension Qualified Code(s): I10 - Essential (primary) hypertension Is this a current diagnosis for this admission?: Yes Plan: 10/15/2019-stable 10/16/2019-stable 10/17/2019-stable (8) Hypothyroidism Qualifiers: Hypothyroidism type: unspecified Qualified Code(s): E03.9 - Hypothyroidism, unspecified Is this a current diagnosis for this admission?: Yes Plan: 10/15/2019-awaiting TSH 10/16/2019-stable 10/17/2019-stable (9) Pyuria Is this a current diagnosis for this admission?: Yes Plan: 10/15/2019-stable 10/16/2019-stable 10/17/2019-stable (10) Tobacco use disorder, mild, abuse Is this a current diagnosis for this admission?: Yes Plan: 10/15/2019-continue smoking cessation education 10/16/2019-continue smoking cessation education 10/17/2019-smoking cessation education (11) UTI (urinary tract infection) Is this a current diagnosis for this admission?: Yes Plan: 10/15/2019-Rocephin 1 g IV daily. Await cultures 10/16/2018-continue Rocephin. Culture still pending 10/17/2019-stable continue Rocephin (12) Altered mental status Is this a current diagnosis for this admission?: Yes Plan: 6018-most likely metabolic encephalopathy in nature. Patient MRI negative. Patient appears to be sundowning at times. We will continue to medicate as necessary and reorient continuously - Plan Summary Summary: Patient is admitted to the stroke protocol on [facility]. She will receive routine supportive and symptomatic cares. She will have an MRI of the brain with a carotid Doppler and an echocardiogram performed. She will be seen in consultation by the stroke nurse, social work msw, PT, OT, speech therapy and the registered dietitian. She will be placed on a antiplatelet agent and her other medications for chronic medical problems will be continued as appropriate. She will use morphine sulfate 2 to 4 mg IV every 2 hours as needed for pain control. Routine laboratory evaluations will be obtained through the stroke protocol. Smoking cessation is advised and counseled briefly at the bedside. A nicotine replacement patch is available for the patient's use, if desired - Time Time Spent with patient: 15-24 minutes - Inpatient Certification Based on my medical assessment, after consideration of the patient's comorbidities, presenting symptoms, or acuity I expect that the services needed warrant INPATIENT care.: Yes I certify that my determination is in accordance with my understanding of Medic are's requirements for reasonable and necessary INPATIENT services [42 CFR 412.3e].: Yes Medical Necessity: Significant Comorbidiites Make Outpatient Treatment Too Risky, Need Close Monitoring Due to Risk of Patient Decompensation, Need for IV Antibiotics
[2019-10-17] MEDS: FLUCONAZOLE 100 MG TABLET PO SCH (09:26)
[2019-10-17] MEDS: AMLODIPINE BESYLATE 5 MG TABLET PO SCH (09:26)
[2019-10-17] MEDS: CEFTRIAXONE 1 GM/D5W RTU 1 GM/50 ML RTUPB IV SCH (09:26)
[2019-10-17] MEDS: FAMOTIDINE 20 MG TABLET PO SCH ×2 (09:26→23:11)
[2019-10-17] MEDS: CLOPIDOGREL BISULFATE 75 MG TABLET PO SCH (09:26)
[2019-10-17] MEDS: ASPIRIN 81 MG TABLET, ENT COATED PO SCH (09:27)
[2019-10-17] MEDS: CLONIDINE HCL 0.1 MG TABLET PO SCH ×2 (09:27→23:11)
[2019-10-17] MEDS: ESCITALOPRAM OXALATE 10 MG TABLET PO SCH (09:27)
[2019-10-17] MEDS ORDERED: (PENDING PHARMACY ID) (Escitalopram Oxalate [Lexapro] 30 MG) PO SCH (10:00)
[2019-10-17] MEDS: LEVALBUTEROL HCL NEB 0.63 MG/3 ML AMPUL NEB PRN ×2 (10:12→16:06)
[2019-10-17] MEDS: ATORVASTATIN CALCIUM 20 MG TABLET PO SCH (23:11)
[2019-10-18] MEDS: LEVOTHYROXINE SODIUM 0.075 MG TABLET PO SCH (05:51)
[2019-10-18] MEDS: HEPARIN SOD (PORCINE) 5,000 UNIT/ML 1 ML VIAL SUBCUT SCH ×2 (05:52→14:05)
[2019-10-18 06:26] LABS: HEMATOCRIT 38.1 % (36.0-47.0); HEMOGLOBIN 12.9 g/dL (12.0-15.5); MEAN CORPUSCULAR HEMOGLOBIN 32.2 pg (27.0-33.4); MEAN CORPUSCULAR HGB CONC 33.8 g/dL (32.0-36.0); MEAN CORPUSCULAR VOLUME 95 fl (80-97); PLATELET COUNT 279 10^3/uL (150-450); RED BLOOD COUNT 4.01 10^6/uL (3.72-5.28); RED CELL DISTRIBUTION WIDTH 14.2 % (11.5-14.0); WHITE BLOOD COUNT 11.1 10^3/uL (4.0-10.5)
[2019-10-18 06:54] LABS: ANION GAP 12 (5-19); BLOOD UREA NITROGEN 24 mg/dL (7-20); CALCIUM 10.2 mg/dL (8.4-10.2); CARBON DIOXIDE 30 mmol/L (22-30); CHLORIDE 95 mmol/L (98-107); GLUCOSE 128 mg/dL (75-110); POTASSIUM 4.8 mmol/L (3.6-5.0)
--- NOTE | 2019-10-18 08:27 | RADIOLOGY REPORT (SQ) ---
EXAM DESCRIPTION: CAROTID DOPPLER COMPLETED DATE/TIME: 10/17/2019 9:55 pm REASON FOR STUDY: TIA COMPARISON: 10/21/2018 TECHNIQUE: Grayscale ultrasound, Doppler velocity and spectra, and color Doppler images acquired of the extra-cranial carotid and vertebral arteries. Images stored on PACS. LIMITATIONS: None. FINDINGS: RIGHT CAROTID CCA Velocities: Within normal limits. ICA Velocities Peak systolic 94 cm/s. End diastolic 24 cm/s. Proximal ICA/CCA peak systolic ratio 1.1. Spectra normal. No significant plaque. LEFT CAROTID CCA Velocities: Within normal limits. ICA Velocities Peak systolic 208 cm/s. End diastolic 41 cm/s. Proximal ICA/CCA peak systolic ratio 2.8. Complex plaque in the carotid bulb and proximal ICA. VERTEBRAL ARTERIES: Antegrade flow. Normal waveforms. SUBCLAVIAN ARTERIES: No finding. OTHER: No other significant finding. IMPRESSION: 1. 50 to 69% stenosis in the left internal carotid artery with complex plaque at the ca rotid bulb and proximal ICA. Velocities have slightly increased when compared to prior study. 2. No hemodynamically significant stenosis on the right. COMMENT: Quality ID #[id number]: Velocity criteria are extrapolated from the diameter data as defined by t he Society of Radiologists in Ultrasound Consensus Conference. Radiology 2003: 229; 340-346. TECHNICAL DOCUMENTATION: JOB ID: [id number] [employer]- All Rights Reserved Reading location - IP/workstation name: [email or web address]
--- NOTE | 2019-10-18 10:20 | XCELERA REPORT ---
[address] [address] Transthoracic Echocardiogram Report Name: LORELEI STARKS Age: 84 yrs Gender: Female : 1935 Patient Status: Inpatient Patient Location: [address] [place] [address] Study Date: 10/17/2019 07:32 PM Height: 62 in Weight: 145 lb BSA: 1.7 m2 Procedure: A two-dimensional transthoracic echocardiogram with color flow and Doppler was performed. Study Quality: Technically suboptimal. The study was technically difficult with many images being suboptimal in quality. Reason For Study: TIA, HTN, CAD History: TIA, HTN, CAD. Ordering Physician: MOE MELVIN Performed By: Debbi Hoffman Interpretation Summary There is no obvious cardiac source of embolus noted on this transthoracic echocardiogram. Follow-up with a ALYSSA is suggested if cardiac source is still suspected. The left ventricle is normal in size. There is normal left ventricular wall thickness. Left ventricular systolic function is normal. LV EF is > than 60% Doppler measurements suggest impaired left ventricular relaxation, which is associated with grade I/IV or mild diastolic dysfunction The left ventricular wall motion is normal. There is no thrombus. Not a good study to assesss for ASD ,VSD , oor PFO. The right ventricle is grossly normal size. The right atrium is normal. The left atrial size is normal. There is mild mitral annular calcification. There is no evidence of mitral valve prolapse. There is no vegetation seen on the mitral valve. There is no mitral valve stenosis. There is a trace amount of mitral regurgitation There is no aortic valvular vegetation. There is mild aortic stenosis There is a peak gradient of 16.2 mm of Hg. There is no LVOT obstruction. No aortic regurgitation is present. There is no tricuspid stenosis. There is a trace to mild amount of tricuspid regurgitation There is moderate pulmonary hypertension by echo RVSP is 48 to 53 mm of Hg , with RA mean of 5 to 10. There is no pulmonic valvular stenosis. There is no pulmonic valvular regurgitation. The aortic root is normal size. The inferior vena cava appeared normal and decreased > 50% with respiration (RAP 5-10 mmHg) There is no pericardial effusion. There is no obvious cardiac source of embolus noted on this transthoracic echocardiogram. Follow-up with a ALYSSA is suggested if cardiac source is still suspected MMode/2D Measurements & Calculations RVDd: 2.0 cm LVIDd: 4.1 cm FS: 33.2 % Ao root diam: 2.3 cm IVSd: 1.1 cm LVIDs: 2.7 cm EDV(Teich): Ao root area: LVPWd: 1.0 cm 74.0 ml 4.0 cm2 ESV(Teich): LA dimension: 2.6 cm 27.9 ml EF(Teich): 62.3 % LVLd ap4: 5.9 cm SV(MOD-sp4): EDV(MOD-sp4): 24.0 ml 35.0 ml LVLs ap4: 4.3 cm ESV(MOD-sp4): 11.0 ml EF(MOD-sp4): 68.6 % Doppler Measurements & Calculations MV E max daron: MV P1/2t max daron: Ao V2 max: LV V1 max P.8 cm/sec 89.6 cm/sec 200.8 cm/sec 11.0 mmHg MV A max daron: MV P1/2t: 47.4 msec Ao max PG: LV V1 max: 115.4 cm/sec MVA(P1/2t): 4.6 cm2 16.2 mmHg 165.9 cm/sec MV E/A: 0.63 MV dec slope: 553.1 cm/sec2 MV dec time: 0.19 sec PA V2 max: TR max daron: MV P1/2t-pr_phl: 116.7 cm/sec 327.1 cm/sec 47.4 msec PA max P.5 mmHgTR max P.8 mmHg Left Ventricle The left ventricle is normal in size. There is normal left ventricular wall thickness. Left ventricular systolic function is normal. LV EF is > than 60%. Doppler measurements suggest impaired left ventricular relaxation, which is associated with grade I/IV or mild diastolic dysfunction. The left ventricular wall motion is normal. There is no thrombus. Not a good study to assesss for ASD ,VSD , oor PFO. Right Ventricle The right ventricle is grossly normal size. The right ventricle is not well visualized secondary to technical limitations. Atria The right atrium is normal. The left atrial size is normal. Mitral Valve There is mild mitral annular calcification. There is no evidence of mitral valve prolapse. There is no vegetation seen on the mitral valve. There is no mitral valve stenosis. There is a trace amount of mitral regurgitation. Aortic Valve There is no aortic valvular vegetation. There is mild aortic stenosis. There is a peak gradient of 16.2 mm of Hg. There is no LVOT obstruction. No aortic regurgitation is present. Tricuspid Valve There is no tricuspid stenosis. There is a trace to mild amount of tricuspid regurgitation. There is moderate pulmonary hypertension by echo. RVSP is 48 to 53 mm of Hg , with RA mean of 5 to 10. Pulmonic Valve There is no pulmonic valvular stenosis. There is no pulmonic valvular regurgitation. Great Vessels The aortic root is normal size. The inferior vena cava appeared normal and decreased > 50% with respiration (RAP 5-10 mmHg). Effusions There is no pericardial effusion. : MOE MELVIN Lakshmi
[2019-10-18] MEDS: ASPIRIN 81 MG TABLET, ENT COATED PO SCH (11:46)
[2019-10-18] MEDS: AMLODIPINE BESYLATE 5 MG TABLET PO SCH (11:46)
[2019-10-18] MEDS: ESCITALOPRAM OXALATE 10 MG TABLET PO SCH (11:46)
[2019-10-18] MEDS: FLUCONAZOLE 100 MG TABLET PO SCH (11:47)
[2019-10-18] MEDS: FAMOTIDINE 20 MG TABLET PO SCH (11:47)
[2019-10-18] MEDS: CLOPIDOGREL BISULFATE 75 MG TABLET PO SCH (11:47)
[2019-10-18] MEDS: CLONIDINE HCL 0.1 MG TABLET PO SCH (11:47)
[2019-10-18] MEDS: LEVALBUTEROL HCL NEB 0.63 MG/3 ML AMPUL NEB PRN (12:11)
[2019-10-18] MEDS: PREDNISONE 10 MG TABLET PO SCH ×2 (14:05→17:50)
[2019-10-18] MEDS: CEFTRIAXONE 1 GM/D5W RTU 1 GM/50 ML RTUPB IV SCH (15:47)
[2019-10-18 17:06] VITALS: BP 110/59
[2019-10-18] MEDS ORDERED: PREDNISONE 10 MG TABLET PO SCH (18:00)
[2019-10-18] MEDS ORDERED: CEPHALEXIN 500 MG CAPSULE PO SCH (22:00)
--- NOTE | 2019-10-19 18:10 | PDOC DISCHARGE SUMMARY ---
Impression - Admit/DC Date/PCP Admission Date/Primary Care Provider: 10/14/19 23:34 IGOR ABDIRAHMANSANDRITA CORTES Discharge Date: 10/18/19 - Discharge Diagnosis (1) Altered mental status Is this a current diagnosis for this admission?: Yes (2) Urinary tract infection Is this a current diagnosis for this admission?: Yes (3) TIA (transient ischemic attack) Is this a current diagnosis for this admission?: Yes (4) Chronic obstructive pulmonary disease Is this a current diagnosis for this admission?: Yes (5) Coronary artery disease Is this a current diagnosis for this admission?: Yes (6) Hypertension Is this a current diagnosis for this admission?: Yes (7) Hypothyroidism Is this a current diagnosis for this admission?: Yes - Assessment Summary: Patient is admitted to the stroke protocol on IMCU. She will receive routine supportive and symptomatic cares. She will have an MRI of the brain with a carotid Doppler and an echocardiogram performed. She will be seen in consultation by the stroke nurse, social media coordinator, PT, OT, speech therapy and the registered dietitian. She will be placed on a antiplatelet agent and her other medications for chronic medical problems will be continued as appropriate. She will use morphine sulfate 2 to 4 mg IV every 2 hours as needed for pain control. Routine laboratory evaluations will be obtained through the stroke protocol. Smoking cessation is advised and counseled briefly at the bedside. A nicotine replacement patch is available for the patient's use, if desired - Additional Information Resuscitation Status: Full Code Discharge Diet: Cardiac Discharge Activity: Activity As Tolerated, Balance Activity w/Rest Referrals: CHAPIS KRISHNAMURTHY MD [ACTIVE STAFF] - 11/17/19 9:45 am DINAH CORRAL NP [NURSE PRACTITIONER] - 10/24/19 10:15 am Prescriptions: Fluticasone/Salmeterol [Advair HFA 115-21 mcg Inhaler] 1 puff IH DAILY #1 mdi Prednisone [Deltasone 10 mg Tablet] 10 mg PO BID 3 Days #6 tablet Fluconazole [Diflucan 100 mg Tablet] 100 mg PO DAILY 2 Days #2 tablet Cephalexin Monohydrate [Keflex 500 mg Capsule] 500 mg PO Q12 4 Days #8 capsule Atorvastatin Calcium [Lipitor 40 mg Tablet] 40 mg PO QHS #30 tablet Amlodipine Besylate [Norvasc 5 mg Tablet] 5 mg PO DAILY #30 tablet Home Medications: Alprazolam [Xanax 0.5 mg Tablet] 0.5 mg PO BIDP PRN 10/15/19 Aspirin [Adult Low Dose Aspirin EC] 81 mg PO DAILY 10/15/19 Clonidine HCl [Catapres 0.1 mg Tablet] 0.1 mg PO BID 10/15/19 Escitalopram Oxalate [Lexapro] 30 mg PO DAILY 10/15/19 Levothyroxine Sodium 75 mcg PO Q6AM 10/15/19 Meloxicam [Mobic] 7.5 mg PO DAILY 10/15/19 Amlodipine Besylate [Norvasc 5 mg Tablet] 5 mg PO DAILY #30 tablet 10/18/19 Atorvastatin Calcium [Lipitor 40 mg Tablet] 40 mg PO QHS #30 tablet 10/18/19 Cephalexin Monohydrate [Keflex 500 mg Capsule] 500 mg PO Q12 4 Days #8 capsule 10/18/19 Fluconazole [Diflucan 100 mg Tablet] 100 mg PO DAILY 2 Days #2 tablet 10/18/19 Fluticasone/Salmeterol [Advair HFA 115-21 mcg Inhaler] 1 puff IH DAILY #1 mdi 10/18/19 Prednisone [Deltasone 10 mg Tablet] 10 mg PO BID 3 Days #6 tablet 10/18/19 History of Present Illiness History of Present Illness: Admitting hospitalist's H&P: LORELEI STARKS is a 84 year old female who presented via EMS to the emergency room with acute dysarthria. She admits the sudden onset of dysarthria accom panied by a severe throbbing left-sided headache (fronto-facial) at about 4 pM this afternoon. Her dysarthria and headache were associated with expressive aphasia, mild confusion and mild generalized weakness. Patient denied other associated or accompanying signs and symptoms. She denies prior similar episodes. She has not identified any aggravating or ameliorating factors for her acute dysarthria. The patient's dysarthria, expressive aphasia, confusion and generalized weakness gradually resolved approximately 3 hours after onset, during her emergency room visit. Her headache persisted and is still present at the time of my evaluation. In the emergency room her head CT scan was negative for intracranial hemorrhage. She was noted to have mild pyuria but her evaluation was otherwise unremarkable. She was subsequently admitted to the hospital per the stroke protocol. Hospital Course Hospital Course: Patient presented with word finding difficulty and was admitted for possible TIA. She had an MRI of the brain which was negative for CVA. Her symptoms promptly resolved. TIA work-up was also pursued. Echo was unremarkable. Her carotid Doppler came back positive for left-sided stenosis which is chronic and unchanged from previous studies. She was optimized on statin and aspirin. Her blood pressure medications were also adjusted and amlodipine was increased to achieve better blood pressure control. She was also treated with IV antibiotics for a urinary tract infection. She did return to her baseline mentation. She has a longstanding history of COPD. She did develop found to be exacerbation and was started on steroids. This resolved. She was evaluated for home O2 need and she was found to require supplemental oxygen at home. She will be discharged on home health and home PT. She will also be given an appointment with Dr. Campos for further recommendations about her left carotid stenosis. Physical Exam Vital Signs: Temp Pulse Resp BP Pulse Ox 98.7 F 63 20 110/59 L 95 10/18/19 17:02 10/18/19 17:02 10/18/19 17:02 10/18/19 17:02 10/18/19 17:02 Intake & Output 10/18/19 10/19/19 10/20/19 06:59 06:59 06:59 Intake Total 770 250 Output Total 0 Balance 770 250 Weight 152 lb 12.485 oz General appearance: PRESENT: no acute distress, well-developed, well-nourished Head exam: PRESENT: atraumatic, normocephalic Eye exam: PRESENT: conjunctiva pink, EOMI, PERRLA. ABSENT: scleral icterus Ear exam: PRESENT: normal external ear exam Mouth exam: PRESENT: moist, tongue midline Neck exam: ABSENT: carotid bruit, JVD, lymphadenopathy, thyromegaly Respiratory exam: PRESENT: clear to auscultation thuy. ABSENT: rales, rhonchi, wheezes Cardiovascular exam: PRESENT: RRR. ABSENT: diastolic murmur, rubs, systolic murmur Pulses: PRESENT: normal dorsalis pedis pul GI/Abdominal exam: PRESENT: normal bowel sounds, soft. ABSENT: distended, guarding, mass, organolmegaly, rebound, tenderness Rectal exam: PRESENT: deferred Extremities exam: PRESENT: full ROM. ABSENT: calf tenderness, clubbing, pedal edema Neurological exam: PRESENT: alert, awake, oriented to person, oriented to place, CN II-XII grossly intact. ABSENT: motor sensory deficit Results Laboratory Results: WBC 11.1 10^3/uL (4.0-10.5) H 10/18/19 06:02 RBC 4.01 10^6/uL (3.72-5.28) 10/18/19 06:02 Hgb 12.9 g/dL (12.0-15.5) 10/18/19 06:02 Hct 38.1 % (36.0-47.0) 10/18/19 06:02 MCV 95 fl (80-97) 10/18/19 06:02 MCH 32.2 pg (27.0-33.4) 10/18/19 06:02 MCHC 33.8 g/dL (32.0-36.0) 10/18/19 06:02 RDW 14.2 % (11.5-14.0) H 10/18/19 06:02 Plt Count 279 10^3/uL (150-450) 10/18/19 06:02 Lymph % (Auto) 12.4 % (13-45) L 10/14/19 19:25 [place] % (Auto) 5.4 % (3-13) 10/14/19 19:25 Eos % (Auto) 0.7 % (0-6) 10/14/19 19:25 Baso % (Auto) 0.4 % (0-2) 10/14/19 19:25 Absolute Neuts (auto) 7.8 10^3/uL (1.7-8.2) 10/14/19 19:25 Absolute Lymphs (auto) 1.2 10^3/uL (0.5-4.7) 10/14/19 19:25 Absolute Monos (auto) 0.5 10^3/uL (0.1-1.4) 10/14/19 19:25 Absolute Eos (auto) 0.1 10^3/uL (0.0-0.6) 10/14/19 19:25 Absolute Basos (auto) 0.0 10^3/uL (0.0-0.2) 10/14/19 19:25 Seg Neutrophils % 81.1 % (42-78) H 10/14/19 19:25 PT 13.3 SEC (11.4-15.4) 10/14/19 19:25 INR 1.01 10/14/19 19:25 APTT 28.8 SEC (23.5-35.8) 10/14/19 19:25 Sodium 137.0 mmol/L (137-145) 10/18/19 06:02 Potassium 4.8 mmol/L (3.6-5.0) 10/18/19 06:02 Chloride 95 mmol/L (98-107) L 10/18/19 06:02 Carbon Dioxide 30 mmol/L (22-30) 10/18/19 06:02 Anion Gap 12 (5-19) 10/18/19 06:02 BUN 24 mg/dL (7-20) H 10/18/19 06:02 Creatinine 0.73 mg/dL (0.52-1.25) 10/18/19 06:02 Est GFR ( Amer) > 60 (>60) 10/18/19 06:02 Est GFR (MDRD) Non-Af > 60 (>60) 10/18/19 06:02 Glucose 128 mg/dL (75-110) H 10/18/19 06:02 Calcium 10.2 mg/dL (8.4-10.2) 10/18/19 06:02 Total Bilirubin 0.3 mg/dL (0.2-1.3) 10/14/19 19:25 Direct Bilirubin 0.2 mg/dL (0.0-0.4) 10/14/19 19:25 Neonat Total Bilirubin Not Reportable 10/14/19 19:25 Neonat Direct Bilirubin Not Reportable 10/14/19 19:25 Neonat Indirect Bili Not Reportable 10/14/19 19:25 AST 24 U/L (14-36) 10/14/19 19:25 ALT 16 U/L (<35) 10/14/19 19:25 Alkaline Phosphatase 59 U/L (38-126) 10/14/19 19:25 Creatine Kinase 61 U/L (30-135) 10/15/19 13:17 CK-MB (CK-2) 1.20 ng/mL (<4.55) 10/15/19 13:17 Troponin I < 0.012 ng/mL 10/15/19 13:17 Total Protein 6.7 g/dL (6.3-8.2) 10/14/19 19:25 Albumin 4.1 g/dL (3.5-5.0) 10/14/19 19:25 Triglycerides 79 mg/dL (<150) 10/15/19 07:54 Cholesterol 147.68 mg/dL (0-200) 10/15/19 07:54 LDL Cholesterol Direct 77 mg/dL (<100) 10/15/19 07:54 VLDL Cholesterol 16.0 mg/dL (10-31) 10/15/19 07:54 HDL Cholesterol 55 mg/dL (>40) 10/15/19 07:54 TSH 1.71 uIU/mL (0.47-4.68) 10/15/19 07:54 Urine Color YELLOW 10/14/19 21:37 Urine Appearance SLIGHTLY-CLOUDY 10/14/19 21:37 Urine pH 7.0 (5.0-9.0) 10/14/19 21:37 Ur Specific [place] 1.019 10/14/19 21:37 Urine Protein 30 mg/dL (NEGATIVE) H 10/14/19 21:37 Urine Glucose (UA) NEGATIVE mg/dL (NEGATIVE) 10/14/19 21:37 Urine Ketones TRACE mg/dL (NEGATIVE) H 10/14/19 21:37 Urine Blood NEGATIVE (NEGATIVE) 10/14/19 21:37 Urine Nitrite (Reflex) NEGATIVE (NEGATIVE) 10/14/19 21:37 Urine Bilirubin NEGATIVE (NEGATIVE) 10/14/19 21:37 Urine Urobilinogen 2.0 mg/dL (<2.0) H 10/14/19 21:37 Leukocyte Esterase Rfl MODERATE (NEGATIVE) H 10/14/19 21:37 Urine RBC (Auto) 1 /HPF 10/14/19 21:37 U Hyaline Cast (Auto) 1 /LPF 10/14/19 21:37 Urine WBC (Reflex) 18 /HPF 10/14/19 21:37 Squamous Epi Cells Auto 3 /HPF 10/14/19 21:37 Urine Mucus (Auto) RARE /LPF 10/14/19 21:37 Urine Ascorbic Acid 40 (NEGATIVE) H 10/14/19 21:37 10/14/19 10/15/19 10/15/19 19:25 01:20 07:54 CK-MB (CK-2) 0.83 0.91 Troponin I < 0.012 < 0.012 < 0.012 10/15/19 13:17 CK-MB (CK-2) 1.20 Troponin I < 0.012 Impressions: Head CT 10/14/19 18:38 IMPRESSION: No acute finding. Head MRI 10/15/19 00:00 IMPRESSION: ATROPHY AND CHRONIC MICRO-VASCULAR ISCHEMIC CHANGES. OTHERWISE NORMAL MRI OF THE BRAIN WITHOUT INTRAVENOUS GADOLINIUM CONTRAST. EVIDENCE OF ACUTE STROKE: NO. Carotid Doppler Study 10/17/19 00:00 IMPRESSION: 1. 50 to 69% stenosis in the left internal carotid artery with complex plaque at the carotid bulb and proximal ICA. Velocities have slightly increased when compared to prior study. 2. No hemodynamically significant stenosis on the right. Stroke Is this a Stroke Patient?: No Acute Heart Failure - Is this a Heart Failure Patient?: No
== END 2019-10-18 18:15 | disposition home health service (06) | DRG 69 ==
LOC: ER 17:54 → EH 23:34 → 3S 10-15 02:47 → 3W 10-16 05:06
PROVIDERS: ADMIT Emergency Medicine; ATTEND Emergency Medicine
DX: G45.9 Transient cerebral ischemic attack, unspecified (principal); R47.01 Aphasia; J44.1 Chronic obstructive pulmonary disease with (acute) exacerbation; R47.1 Dysarthria and anarthria; R82.81 Pyuria; R51 Headache; E03.9 Hypothyroidism, unspecified; F32.9 Major depressive disorder, single episode, unspecified; M19.90 Unspecified osteoarthritis, unspecified site; I25.10 Atherosclerotic heart disease of native coronary artery without angina pectoris; E78.5 Hyperlipidemia, unspecified; F17.210 Nicotine dependence, cigarettes, uncomplicated; I10 Essential (primary) hypertension; K21.9 Gastro-esophageal reflux disease without esophagitis; Z90.710 Acquired absence of both cervix and uterus; Z83.3 Family history of diabetes mellitus; Z82.49 Family history of ischemic heart disease and other diseases of the circulatory system; Z99.81 Dependence on supplemental oxygen
CPT/HCPCS: 36415; 70450; 70551; 71045; 80048; 80053; 80061; 81001; 82550; 82553; 84443; 84484; 85025; 85027; 85610; 85730; 87086; 93005; 93010; 93306; 93880; 94640; 96374; 99285; J0696; J1630; J1644; J2060; J2270; J2405; J3230; J3486; J3490; J7512; J7614

== ENCOUNTER 2019-10-27 01:01 | Emergency (ER) | payer MEDICARE, OTHER ==
[2019-10-27] MEDS ORDERED: PREDNISONE 20 MG TABLET PO ONE (02:34)
--- NOTE | 2019-10-27 02:51 | ER Document Report ---
ED General - General Chief Complaint: Allergy Symptoms Stated Complaint: POSSIBLE ALLERGIC REACTION Time Seen by Provider: 10/27/19 02:24 Primary Care Provider: IGOR PARRA FNP-C [Primary Care Provider] - Follow up as needed TRAVEL OUTSIDE OF THE [place] IN LAST 30 DAYS: No - HPI Notes: This is an 84-year-old female who presents today with a complaint of a possible allergic reaction. Patient states that she ate her dinner which included eggs, and shortly after that, she started itching in her hands and her feet. She denies any obvious rash. She denies any cardiopulmonary symptoms. No chest pain or dyspnea. Patient was given Benadryl per EMS prior to ED arrival. Her symptoms are now completely resolved. She denies any itching at this time. She feels fine. - Related Data Allergies/Adverse Reactions: trimethoprim [From Proloprim] Allergy (Unknown, Verified 01/15/16 09:51) RASH Past Medical History - Social History Smoking Status: Unknown if Ever Smoked Chew tobacco use (# tins/day): No Frequency of alcohol use: None Drug Abuse: None Family History: Reviewed & Not Pertinent Patient has suicidal ideation: No Patient has homicidal ideation: No - Past Medical History Cardiac Medical History: Reports: Hx Coronary Artery Disease, Hx Hypercholesterolemia, Hx Hypertension Denies: Hx Atrial Fibrillation, Hx Congestive Heart Failure, Hx Heart Attack, Hx Peripheral Vascular Disease, Hx Pulmonary Embolism, Hx Heart Murmur Pulmonary Medical History: Reports: Hx Bronchitis, Hx Pneumonia Denies: Hx Asthma, Hx COPD, Hx Respiratory Failure, Hx Sleep Apnea, Hx Tuberculosis Neurological Medical History: Denies: Hx Cerebrovascular Accident, Hx Seizures, Hx Parkinson's Disease Endocrine Medical History: Reports: Hx Hypothyroidism. Denies: Hx Diabetes Mellitus Type 1, Hx Diabetes Mellitus Type 2, Hx Graves' Disease, Hx Hyperthyroidism Renal/ Medical History: Reports: Hx Ovarian Cysts. Denies: Hx End Stage Renal Disease, Hx Kidney Stones, Hx Peritoneal Dialysis, Hx Pelvic Inflammatory Disease Malignancy Medical History: Denies: Hx Breast Cancer, Hx Cervical Cancer, Hx Leukemia, Hx Lung Cancer, Hx Ovarian Cancer GI Medical History: Reports: Hx Gastroesophageal Reflux Disease, Hx Hiatal Hernia. Denies: Hx Cirrhosis, Hx Crohn's Disease, Hx Hepatitis, Hx Irritable Bowel, Hx Liver Failure, Hx Pancreatitis, Hx Ulcer, Hx Ulcerative Colitis Musculoskeletal Medical History: Reports Hx Arthritis, Denies Hx Fibromyalgia, Denies Hx Gout, Denies Hx Multiple Sclerosis, Denies Hx Systemic Lupus Erythematosus Skin Medical History: Denies Hx Eczema, Denies Hx MRSA, Denies Hx Psoriasis Psychiatric Medical History: Reports: Hx Depression Denies: Hx Bipolar Disorder, Hx Dementia, Hx Post Traumatic Stress Disorder, Hx Schizophrenia Traumatic Medical History: Reports: Hx Fractures - L ankle Infectious Medical History: Denies: Hx Hepatitis, Hx HIV Past Surgical History: Reports: Hx Appendectomy, Hx Carotid Endarterectomy - Right, Hx Cholecystectomy, Hx Hysterectomy, Hx Orthopedic Surgery - left ankle, Hx Urinary Tract Surgery - bladder sling, Hx Vascular Surgery - right carotid surgery, Other - Bilateral cataracts, bladder surgery (suspension), gum surgery. Denies: Hx Bowel Surgery, Hx Section, Hx Colostomy, Hx Coronary Artery Bypass Graft, Hx Gastric Bypass Surgery, Hx Herniorrhaphy, Hx Mastectomy, Hx Open Heart Surgery, Hx Pacemaker, Hx Tonsillectomy, Hx Tubal Ligation - Immunizations Hx Diphtheria, Pertussis, Tetanus Vaccination: Yes Review of Systems - Review of Systems Cardiovascular: denies: Chest pain Respiratory: denies: Cough, Short of breath, Sputum, Wheezing Skin: Other - Itching. denies: Rash -: Yes All other systems reviewed and negative Physical Exam - Vital signs Vitals: Temp 97.9 F 10/27/19 01:13 - General General appearance: Appears well, Alert - HEENT Head: Normocephalic, Atraumatic Eyes: Normal Pupils: PERRL - Respiratory Respiratory status: No respiratory distress Chest status: Nontender Breath sounds: Normal Chest palpation: Normal - Cardiovascular Rhythm: Regular Heart sounds: Normal auscultation Murmur: No - Abdominal Inspection: Normal Distension: No distension Tenderness: Nontender - Extremities General upper extremity: Normal inspection General lower extremity: Normal inspection - Skin Skin Temperature: Warm Skin Moisture: Dry Skin Color: Normal Character of irregularity: Other - No rash appreciated. Course - Vital Signs Vital signs: Temp Pulse Resp BP Pulse Ox 97.5 F 64 16 179/94 H 97 10/27/19 02:53 10/27/19 02:53 10/27/19 02:53 10/27/19 02:53 10/27/19 02:53 Discharge - Discharge Clinical Impression: Allergic reaction Qualifiers: Encounter type: initial encounter Qualified Code(s): T78.40XA - Allergy, unspecified, initial encounter Condition: Good Disposition: HOME, SELF-CARE Instructions: Acute Allergic Reaction ([facility]) Additional Instructions: Take Benadryl as needed for itching or rash. Prescriptions: Prednisone [Deltasone 20 mg Tablet] 2 tab PO DAILY 5 Days #10 tablet Famotidine [Pepcid 20 mg Tablet] 20 mg PO BID 5 Days #10 tablet Referrals: IGOR PARRA FNP-C [Primary Care Provider] - Follow up as needed
[2019-10-27 03:43] VITALS: BP 157/62
== END 2019-10-27 03:43 | disposition home or self-care (01) ==
LOC: ER 01:01
DX: T78.40XA Allergy, unspecified, initial encounter (principal); L29.9 Pruritus, unspecified; X58.XXXA Exposure to other specified factors, initial encounter; Z90.49 Acquired absence of other specified parts of digestive tract; Z90.710 Acquired absence of both cervix and uterus
CPT/HCPCS: 99283; A9270; J7512

== ENCOUNTER → 2019-11-23 | Outpatient (CLI) | payer MEDICARE, OTHER ==
[2019-11-23 15:56] LABS: ABSOLUTE EOSINOPHILS # (AUTO) 0.2 10^3/uL (0.0-0.6); ABSOLUTE LYMPHOCYTES (AUTO) 1.5 10^3/uL (0.5-4.7); ABSOLUTE MONOCYTES (AUTO) 0.5 10^3/uL (0.1-1.4); ABSOLUTE NEUT (AUTO) 6.1 10^3/uL (1.7-8.2); BASOPHILS % (AUTO) 0.6 % (0-2); EOSINOPHILS % (AUTO) 1.9 % (0-6); HEMATOCRIT 37.8 % (36.0-47.0); HEMOGLOBIN 12.9 g/dL (12.0-15.5); LYMPHOCYTES % (AUTO) 18.2 % (13-45); MEAN CORPUSCULAR HEMOGLOBIN 32.5 pg (27.0-33.4); MEAN CORPUSCULAR VOLUME 96 fl (80-97); PLATELET COUNT 369 10^3/uL (150-450); RED BLOOD COUNT 3.96 10^6/uL (3.72-5.28); RED CELL DISTRIBUTION WIDTH 13.8 % (11.5-14.0); SEGMENTED NEUTROPHILS % (AUTO) 73.3 % (42-78); TOTAL CELLS COUNTED % (AUTO) 100 %; WHITE BLOOD COUNT 8.4 10^3/uL (4.0-10.5)
[2019-11-23 16:30] LABS: ALBUMIN 4.4 g/dL (3.5-5.0); ALKALINE PHOSPHATASE 60 U/L (38-126); ANION GAP 7 (5-19); ASPARTATE AMINO TRANSFERASE 23 U/L (14-36); BILIRUBIN,TOTAL 0.5 mg/dL (0.2-1.3); BLOOD UREA NITROGEN 15 mg/dL (7-20); CARBON DIOXIDE 33 mmol/L (22-30); CHLORIDE 95 mmol/L (98-107); CHOLESTEROL 223.22 mg/dL (0-200); GLUCOSE 84 mg/dL (75-110); POTASSIUM 4.8 mmol/L (3.6-5.0); TOTAL PROTEIN 7.3 g/dL (6.3-8.2); TRIGLYCERIDES 130 mg/dL (<150)
[2019-11-23 16:40] LABS: DIRECT LDL 124 mg/dL (<100)
== END ==
LOC: OD 14:37
PROVIDERS: ATTEND Psychiatry & Neurology Psychiatry
DX: Z79.899 Other long term (current) drug therapy (principal)
CPT/HCPCS: 36415; 80053; 80061; 84436; 84439; 84443; 84479; 85025

== ENCOUNTER → 2019-11-30 | Outpatient (CLI) | payer MEDICARE, OTHER ==
--- NOTE | 2019-11-30 16:49 | RADIOLOGY REPORT (SQ) ---
EXAM DESCRIPTION: CT CHEST WITHOUT COMPLETED DATE/TIME: 11/30/2019 2:10 pm REASON FOR STUDY: DYSPNEA (R06.00) R06.00 DYSPNEA, UNSPECIFIED COMPARISON: None. TECHNIQUE: CT scan performed of the chest without intravenous contrast. Images reviewed with lung, soft tissue and bone windows. Reconstructed coronal and sagittal MPR images reviewed. All images st ored on PACS. All CT scanners at this facility use dose modulation, iterative reconstruction, and/or weight based d osing when appropriate to reduce radiation dose to as low as reasonably achievable (ALARA). [facility]: Dose Right [facility]: CareDose [facility]: Dose Right [facility]: Teradose 4D [facility]: Smart Maxcyte RADIATION DOSE: CT Rad equipment meets quality standard of care and radiation dose reduction techniq ues were employed. CTDIvol: 6.6 mGy. DLP: 271 mGy-cm. mGy. LIMITATIONS: No technical limitations. FINDINGS: LUNGS AND PLEURA: No masses, infiltrates, or pneumothorax. No pleural effusions or pleura l calcifications. HILAR AND MEDIASTINAL STRUCTURES: There are a few nonspecific mediastinal nodes HEART AND VASCULAR STRUCTURES: No aneurysm. No pericardial effusion. UPPER ABDOMEN: No significant findings. Limited exam. THYROID AND OTHER SOFT TISSUES: No masses. No adenopathy. BONES: No significant finding. HARDWARE: None in the chest. OTHER: No other significant findings. IMPRESSION: NO SIGNIFICANT FINDING ON NON-CONTRASTED CHEST CT. TECHNICAL DOCUMENTATION: JOB ID: [id number] Quality ID # [id number]: Final reports with documentation of one or more dose reduction techniques (e.g., Au tomated exposure control, adjustment of the mA and/or kV according to patient size, use of iterative reconstruction technique) 2010 [employer]- All Rights Reserved Reading location - IP/workstation name: [email or web address]
== END ==
LOC: RAD 13:55
PROVIDERS: ATTEND Internal Medicine Pulmonary Disease
DX: R06.00 Dyspnea, unspecified (principal)
CPT/HCPCS: 71250

== ENCOUNTER 2020-04-12 01:38 | Emergency (ER) | payer MEDICARE, OTHER ==
--- NOTE | 2020-04-12 03:42 | ER Document Report ---
ED General - General Chief Complaint: fever and chills Stated Complaint: GENERAL WEAKNESS Primary Care Provider: CHAPIS KRISHNAMURTHY MD [Primary Care Provider] - Follow up as needed Notes: Patient is an 85-year-old female with a history of hypertension, COPD on 4.5 L via nasal cannula, CAD and a prior TIA 2 months ago who presents to the emergen cy department with chief complaint of feeling unwell for the past 2 months. She states since her TIAs she has had multiple generalized complaints. She admits to intermittent headaches, loss of taste, transient episodes of "shaking" followed by chills and hot flashes and as shortness of breath. She states she just generally feels unwell and wants to know what is going on. She denies any recent travel or known sick contacts. She lives at home with her who is not sick at this time. She has not had any contacts with any high risk groups such as prisons or assisted care facilities. She denies any known fever. No known exposures to coronavirus. States that she never leaves her home except to go to her doctor's appointments otherwise she does not go anywhere. She is unsure why she is on oxygen. She states she is not sure her of her medical history or her medications. She does add that her blood pressure is usually in the 90s over 70s but is unsure what her heart rate usually is. She states she thinks she takes clonidine for blood pressure management. She is unsure of any other medical conditions with the exception of the recent TIAs 2 months ago. TRAVEL OUTSIDE OF THE [place] IN LAST 30 DAYS: No - Related Data Allergies/Adverse Reactions: trimethoprim [From Proloprim] Allergy (Unknown, Verified 01/15/16 09:51) RASH Past Medical History - Social History Smoking Status: Former Smoker Chew tobacco use (# tins/day): No Frequency of alcohol use: None Drug Abuse: None Family History: Reviewed & Not Pertinent Patient has homicidal ideation: No - Past Medical History Cardiac Medical History: Reports: Hx Coronary Artery Disease, Hx Hypercholesterolemia, Hx Hypertension Denies: Hx Atrial Fibrillation, Hx Congestive Heart Failure, Hx Heart Attack, Hx Peripheral Vascular Disease, Hx Pulmonary Embolism, Hx Heart Murmur Pulmonary Medical History: Reports: Hx Bronchitis, Hx Pneumonia Denies: Hx Asthma, Hx COPD, Hx Respiratory Failure, Hx Sleep Apnea, Hx Tuberculosis Neurological Medical History: Denies: Hx Cerebrovascular Accident, Hx Seizures, Hx Parkinson's Disease Endocrine Medical History: Reports: Hx Hypothyroidism. Denies: Hx Diabetes Mellitus Type 1, Hx Diabetes Mellitus Type 2, Hx Graves' Disease, Hx Hyperthyroidism Renal/ Medical History: Reports: Hx Ovarian Cysts. Denies: Hx End Stage Renal Disease, Hx Kidney Stones, Hx Peritoneal Dialysis, Hx Pelvic Inflammatory Disease Malignancy Medical History: Denies: Hx Breast Cancer, Hx Cervical Cancer, Hx Leukemia, Hx Lung Cancer, Hx Ovarian Cancer GI Medical History: Reports: Hx Gastroesophageal Reflux Disease, Hx Hiatal Hernia. Denies: Hx Cirrhosis, Hx Crohn's Disease, Hx Hepatitis, Hx Irritable Bowel, Hx Liver Failure, Hx Pancreatitis, Hx Ulcer, Hx Ulcerative Colitis Musculoskeletal Medical History: Reports Hx Arthritis, Denies Hx Fibromyalgia, Denies Hx Gout, Denies Hx Multiple Sclerosis, Denies Hx Systemic Lupus Erythematosus Skin Medical History: Denies Hx Eczema, Denies Hx MRSA, Denies Hx Psoriasis Psychiatric Medical History: Reports: Hx Depression Denies: Hx Bipolar Disorder, Hx Dementia, Hx Post Traumatic Stress Disorder, Hx Schizophrenia Traumatic Medical History: Reports: Hx Fractures - L ankle Infectious Medical History: Denies: Hx Hepatitis, Hx HIV Past Surgical History: Reports: Hx Appendectomy, Hx Carotid Endarterectomy - Right, Hx Cholecystectomy, Hx Hysterectomy, Hx Orthopedic Surgery - left ankle, Hx Urinary Tract Surgery - bladder sling, Hx Vascular Surgery - right carotid surgery, Other - Bilateral cataracts, bladder surgery (suspension), gum surgery. Denies: Hx Bowel Surgery, Hx Section, Hx Colostomy, Hx Coronary Artery Bypass Graft, Hx Gastric Bypass Surgery, Hx Herniorrhaphy, Hx Mastectomy, Hx Open Heart Surgery, Hx Pacemaker, Hx Tonsillectomy, Hx Tubal Ligation - Immunizations Hx Diphtheria, Pertussis, Tetanus Vaccination: Yes Review of Systems - Review of Systems Constitutional: Chills, Diaphoresis, Malaise, Weakness EENT: Other - Loss of taste Respiratory: Short of breath. denies: Cough Gastrointestinal: No symptoms reported Genitourinary: No symptoms reported Female Genitourinary: No symptoms reported Musculoskeletal: No symptoms reported Skin: No symptoms reported Neurological/Psychological: Headaches -: Yes All other systems reviewed and negative Physical Exam - Vital signs Vitals: Temp Pulse Resp BP Pulse Ox 98.6 F 51 L 20 131/98 H 100 04/12/20 01:56 04/12/20 01:56 04/12/20 01:56 04/12/20 01:56 04/12/20 01:56 - General General appearance: Appears well, Alert In distress: None Notes: Speaking in full sentences. She pulled off her nasal cannula and is at 98% on room air - HEENT Head: Normocephalic, Atraumatic Eyes: Normal Conjunctiva: Normal Mouth/Lips: Normal Neck: Supple - Respiratory Respiratory status: No respiratory distress - Extremities General upper extremity: Normal inspection. No: Edema General lower extremity: Normal inspection. No: Edema - Neurological Neuro grossly intact: Yes Cognition: Normal Orientation: AAOx4 - Psychological Associated symptoms: Normal affect, Normal mood - Skin Skin Temperature: Warm Skin Moisture: Dry Skin Color: Other - No rash on exposed skin Course - Re-evaluation Re-evalutation: 04/12/20 03:56 EKG showing sinus bradycardia at 49 bpm. Otherwise normal intervals. Interpreted by ED attending. No STEMI. 04/12/20 06:56 Work-up unremarkable for any acute or emergent process. Pending COVID-19 testing. She will self monitor at home until results return. Suspect possible secondary effects of recent TIAs. She will call her primary care doctor upon discharge today for further outpatient evaluation and management. I counseled her regarding the importance of outpatient follow-up and advised that she return here or any ER immediately with any new, persistent or worsening symptoms. She verbalized understood and agreed. - Vital Signs Vital signs: Temp Pulse Resp BP Pulse Ox 98.3 F 51 L 20 132/69 H 97 04/12/20 03:02 04/12/20 01:56 04/12/20 06:01 04/12/20 06:01 04/12/20 06:01 - Laboratory Result Diagrams: 04/12/20 03:44 04/12/20 03:44 Laboratory results interpreted by me: 04/12/20 04/12/20 04/12/20 02:27 03:44 03:44 RBC 3.50 L Hgb 11.3 L Hct 33.3 L RDW 14.2 H Seg Neutrophils % 78.1 H Sodium 134.4 L BUN 21 H Glucose 124 H Leukocyte Esterase Rfl MODERATE H Discharge - Discharge Clinical Impression: Generalized malaise and fatigue Condition: Stable Disposition: HOME, SELF-CARE Instructions: Transient Ischemic Attack ([facility]) Additional Instructions: Please call your primary care provider today upon discharge from the emergency room or when their office opens to establish for continued outpatient evaluation and management. Please return here any ER immediately with any new, persistent or worsening symptoms. Referrals: CHAPIS KRISHNAMURTHY MD [Primary Care Provider] - Follow up as needed
[2020-04-12 04:02] LABS: ABSOLUTE BASOPHILS # (AUTO) 0.1 10^3/uL (0.0-0.2); ABSOLUTE LYMPHOCYTES (AUTO) 1.4 10^3/uL (0.5-4.7); ABSOLUTE MONOCYTES (AUTO) 0.8 10^3/uL (0.1-1.4); ABSOLUTE NEUT (AUTO) 8.2 10^3/uL (1.7-8.2); BASOPHILS % (AUTO) 0.9 % (0-2); EOSINOPHILS % (AUTO) 0.4 % (0-6); HEMATOCRIT 33.3 % (36.0-47.0); HEMOGLOBIN 11.3 g/dL (12.0-15.5); LYMPHOCYTES % (AUTO) 13.2 % (13-45); MEAN CORPUSCULAR HEMOGLOBIN 32.4 pg (27.0-33.4); MEAN CORPUSCULAR HGB CONC 34.1 g/dL (32.0-36.0); MEAN CORPUSCULAR VOLUME 95 fl (80-97); MONOCYTES % (AUTO) 7.4 % (3-13); PLATELET COUNT 278 10^3/uL (150-450); RED CELL DISTRIBUTION WIDTH 14.2 % (11.5-14.0); SEGMENTED NEUTROPHILS % (AUTO) 78.1 % (42-78); TOTAL CELLS COUNTED % (AUTO) 100 %; WHITE BLOOD COUNT 10.5 10^3/uL (4.0-10.5)
[2020-04-12 04:19] LABS: ALBUMIN 3.6 g/dL (3.5-5.0); ALKALINE PHOSPHATASE 53 U/L (38-126); ANION GAP 5 (5-19); ASPARTATE AMINO TRANSFERASE 24 U/L (14-36); BILIRUBIN,TOTAL 0.4 mg/dL (0.2-1.3); BLOOD UREA NITROGEN 21 mg/dL (7-20); CALCIUM 9.2 mg/dL (8.4-10.2); CARBON DIOXIDE 28 mmol/L (22-30); CHLORIDE 101 mmol/L (98-107); CREATINE KINASE 45 U/L (30-135); GLUCOSE 124 mg/dL (75-110); POTASSIUM 4.7 mmol/L (3.6-5.0); TOTAL PROTEIN 6.4 g/dL (6.3-8.2)
--- NOTE | 2020-04-12 04:24 | RADIOLOGY REPORT (SQ) ---
CLINICAL HISTORY: sob COMPARISON: 10/14/2019. TECHNIQUE: XR CHEST 1 VIEW 04/12/2020 3:11 AM CDT FINDINGS: Cardiac silhouette is normal in size. Lungs are clear without consolidation, atelectasis, mass or edema. There is no pleural effusion. There is no pneumothorax. There are no acute osseous findings. IMPRESSION: Clear lungs.
[2020-04-12 05:31] LABS: APPEARANCE,URINE CLEAR; BILIRUBIN,URINE NEGATIVE (NEGATIVE); COLOR,URINE STRAW; GLUCOSE, URINE NEGATIVE (NEGATIVE); KETONES,URINE NEGATIVE (NEGATIVE); PROTEIN,URINE NEGATIVE (NEGATIVE); URINE SPECIFIC GRAVITY 1.006; UROBILINOGEN,URINE NEGATIVE mg/dL (<2.0)
[2020-04-12] MEDS ORDERED: ACETAMINOPHEN 325 MG TABLET PO ONE (07:28)
--- NOTE | 2020-04-12 07:50 | EKG REPORT ---
SEVERITY:- OTHERWISE NORMAL ECG - SINUS BRADYCARDIA : Confirmed by: Odilia Jones MD 12-Apr-2020 07:50:08
[2020-04-12 07:57] VITALS: BP 150/54
== END 2020-04-12 07:59 | disposition home or self-care (01) ==
LOC: ER 01:38
DX: R53.83 Other fatigue (principal); R53.81 Other malaise; R51 Headache; R68.83 Chills (without fever); R61 Generalized hyperhidrosis; R00.1 Bradycardia, unspecified; R53.1 Weakness; R06.02 Shortness of breath; R43.8 Other disturbances of smell and taste; I10 Essential (primary) hypertension; Z99.81 Dependence on supplemental oxygen; Z86.73 Personal history of transient ischemic attack (TIA), and cerebral infarction without residual deficits; Z87.891 Personal history of nicotine dependence; Z20.828 Contact with and (suspected) exposure to other viral communicable diseases; Z88.1 Allergy status to other antibiotic agents; I25.10 Atherosclerotic heart disease of native coronary artery without angina pectoris; Z87.01 Personal history of pneumonia (recurrent)
CPT/HCPCS: 93005; 99285; 36415; 87086; 82550; 85025; 87088; 80053; 81001; 84484; 87186; 71045; 93010; U0003; A9270; C9803; 87635

== ENCOUNTER 2020-04-27 13:01 | Emergency (ER) | payer MEDICARE, OTHER ==
[2020-04-27 13:13] VITALS: BP 136/58
--- NOTE | 2020-04-27 13:21 | ER Document Report ---
ED Medical Screen (RME) - General Chief Complaint: Fall Stated Complaint: FALL/LOW BACK PAIN Time Seen by Provider: 04/27/20 13:13 Primary Care Provider: CHAPIS KRISHNAMURTHY MD [Primary Care Provider] - Follow up as needed Notes: Patient is an 85-year-old female, brought in by EMS for a fall. Patient states that she could not sleep last night and this morning she got up and felt weak and fell to the floor does not recall whether she hit her head or neck. Patient states that she has felt weak for the past few months. Patient also has complaints of upper abdominal pain. Exam: Tender mid upper abdomen. Patient appears tired on exam. I have greeted and performed a rapid initial assessment of this patient. A comprehensive ED assessment and evaluation of the patient, analysis of test results and completion of medical decision making process will be conducted by an additional ED providers. TRAVEL OUTSIDE OF THE [place] IN LAST 30 DAYS: No - Related Data Allergies/Adverse Reactions: trimethoprim [From Proloprim] Allergy (Unknown, Verified 01/15/16 09:51) RASH Past Medical History - Social History Frequency of alcohol use: None Drug Abuse: None - Past Medical History Cardiac Medical History: Reports: Hx Coronary Artery Disease, Hx Hypercholesterolemia, Hx Hypertension Denies: Hx Atrial Fibrillation, Hx Congestive Heart Failure, Hx Heart Attack, Hx Peripheral Vascular Disease, Hx Pulmonary Embolism, Hx Heart Murmur Pulmonary Medical History: Reports: Hx Bronchitis, Hx Pneumonia Denies: Hx Asthma, Hx COPD, Hx Respiratory Failure, Hx Sleep Apnea, Hx Tuberculosis Neurological Medical History: Denies: Hx Cerebrovascular Accident, Hx Seizures, Hx Parkinson's Disease Endocrine Medical History: Reports: Hx Hypothyroidism. Denies: Hx Diabetes Mellitus Type 1, Hx Diabetes Mellitus Type 2, Hx Graves' Disease, Hx Hyperthyroidism Renal/ Medical History: Reports: Hx Ovarian Cysts. Denies: Hx End Stage Renal Disease, Hx Kidney Stones, Hx Peritoneal Dialysis, Hx Pelvic Inflammatory Disease Malignancy Medical History: Denies: Hx Breast Cancer, Hx Cervical Cancer, Hx Leukemia, Hx Lung Cancer, Hx Ovarian Cancer GI Medical History: Reports: Hx Gastroesophageal Reflux Disease, Hx Hiatal Hernia. Denies: Hx Cirrhosis, Hx Crohn's Disease, Hx Hepatitis, Hx Irritable Bowel, Hx Liver Failure, Hx Pancreatitis, Hx Ulcer, Hx Ulcerative Colitis Musculoskeltal Medical History: Reports Hx Arthritis, Denies Hx Fibromyalgia, Denies Hx Gout, Denies Hx Multiple Sclerosis, Denies Hx Systemic Lupus Erythematosus Skin Medical History: Denies Hx Eczema, Denies Hx MRSA, Denies Hx Psoriasis Psychiatric Medical History: Reports: Hx Depression Denies: Hx Bipolar Disorder, Hx Dementia, Hx Post Traumatic Stress Disorder, Hx Schizophrenia Traumatic Medical History: Reports: Hx Fractures - L ankle Infectious Medical History: Denies: Hx Hepatitis, Hx HIV Past Surgical History: Reports: Hx Appendectomy, Hx Carotid Endarterectomy - Right, Hx Cholecystectomy, Hx Hysterectomy, Hx Orthopedic Surgery - left ankle, Hx Urinary Tract Surgery - bladder sling, Hx Vascular Surgery - right carotid surgery, Other - Bilateral cataracts, bladder surgery (suspension), gum surgery. Denies: Hx Bowel Surgery, Hx Section, Hx Colostomy, Hx Coronary Artery Bypass Graft, Hx Gastric Bypass Surgery, Hx Herniorrhaphy, Hx Mastectomy, Hx Open Heart Surgery, Hx Pacemaker, Hx Tonsillectomy, Hx Tubal Ligation - Immunizations Hx Diphtheria, Pertussis, Tetanus Vaccination: Yes Physical Exam - Vital signs Vitals: Temp Pulse Resp BP Pulse Ox 98.3 F 50 L 22 H 136/58 H 95 04/27/20 13:11 04/27/20 13:11 04/27/20 13:11 04/27/20 13:11 04/27/20 13:11 Course - Vital Signs Vital signs: Temp Pulse Resp BP Pulse Ox 98.3 F 50 L 22 H 136/58 H 95 04/27/20 13:11 04/27/20 13:11 04/27/20 13:11 04/27/20 13:11 04/27/20 13:11 Doctor's Discharge - Discharge Referrals: CHAPIS KRISHNAMURTHY MD [Primary Care Provider] - Follow up as needed
[2020-04-27 13:37] LABS: ABSOLUTE EOSINOPHILS # (AUTO) 0.2 10^3/uL (0.0-0.6); ABSOLUTE LYMPHOCYTES (AUTO) 1.5 10^3/uL (0.5-4.7); ABSOLUTE MONOCYTES (AUTO) 0.9 10^3/uL (0.1-1.4); ABSOLUTE NEUT (AUTO) 10.4 10^3/uL (1.7-8.2); BASOPHILS % (AUTO) 0.1 % (0-2); EOSINOPHILS % (AUTO) 1.4 % (0-6); HEMOGLOBIN 12.5 g/dL (12.0-15.5); LYMPHOCYTES % (AUTO) 11.3 % (13-45); MEAN CORPUSCULAR HGB CONC 33.9 g/dL (32.0-36.0); MEAN CORPUSCULAR VOLUME 94 fl (80-97); MONOCYTES % (AUTO) 6.9 % (3-13); PLATELET COUNT 369 10^3/uL (150-450); RED BLOOD COUNT 3.92 10^6/uL (3.72-5.28); RED CELL DISTRIBUTION WIDTH 13.9 % (11.5-14.0); SEGMENTED NEUTROPHILS % (AUTO) 80.3 % (42-78); TOTAL CELLS COUNTED % (AUTO) 100 %; WHITE BLOOD COUNT 12.9 10^3/uL (4.0-10.5)
[2020-04-27 13:56] LABS: ALKALINE PHOSPHATASE 78 U/L (38-126); ASPARTATE AMINO TRANSFERASE 31 U/L (14-36); BILIRUBIN,TOTAL 0.4 mg/dL (0.2-1.3); BLOOD UREA NITROGEN 20 mg/dL (7-20); CALCIUM 9.5 mg/dL (8.4-10.2); CARBON DIOXIDE 30 mmol/L (22-30); CHLORIDE 100 mmol/L (98-107); GLUCOSE 108 mg/dL (75-110); TOTAL PROTEIN 6.7 g/dL (6.3-8.2)
[2020-04-27 14:03] LABS: ANION GAP 3 (5-19)
--- NOTE | 2020-04-27 14:05 | RADIOLOGY REPORT (SQ) ---
EXAM DESCRIPTION: CT CERVICAL SPINE WITHOUT IMAGES COMPLETED DATE/TIME: 04/27/2020 1:39 pm REASON FOR STUDY: fall COMPARISON: None. TECHNIQUE: Axial images acquired through the cervical spine without intravenous contrast. Images re viewed with lung, soft tissue and bone windows. Reconstructed coronal and sagittal MPR images review ed. Images stored on PACS. All CT scanners at this facility use dose modulation, iterative reconstruction, and/or weight based d osing when appropriate to reduce radiation dose to as low as reasonably achievable (ALARA). [facility]: Dose Right [facility]: CareDose [facility]: Dose Right [facility]: Teradose 4D [facility]: [employer] RADIATION DOSE: CT Rad equipment meets quality standard of care and radiation dose reduction techniq ues were employed. CTDIvol: 10.3 mGy. DLP: 178 mGy-cm. mGy. LIMITATIONS: None. FINDINGS: ALIGNMENT: Anatomic. MINERALIZATION: Normal. VERTEBRAL BODIES: No fractures or dislocation. DISCS: Disc spaces are narrowed at C5-6 and C6-7 with marginal osteophytes FACETS, LATERAL MASSES, POSTERIOR ELEMENTS: Hypertrophic facet changes seen in the mid cervical spine . HARDWARE: None in the spine. VISUALIZED RIBS: No fractures. LUNG APICES AND SOFT TISSUES: No significant or acute findings. OTHER: No other significant finding. IMPRESSION: Degenerative disc disease and spondylosis. Facet arthropathy. TECHNICAL DOCUMENTATION: JOB ID: [id number] Quality ID # [id number]: Final reports with documentation of one or more dose reduction techniques (e.g., Au tomated exposure control, adjustment of the mA and/or kV according to patient size, use of iterative reconstruction technique) 2010 [employer]- All Rights Reserved Reading location - IP/workstation name: [email or web address]
--- NOTE | 2020-04-27 14:07 | RADIOLOGY REPORT (SQ) ---
EXAM DESCRIPTION: CT HEAD WITHOUT IMAGES COMPLETED DATE/TIME: 04/27/2020 1:39 pm REASON FOR STUDY: fall COMPARISON: 10/15/2019 TECHNIQUE: Axial images acquired through the brain without intravenous contrast. Images reviewed wi th bone, brain and subdural windows. Additional sagittal and coronal reconstructions were generated. Images stored on PACS. All CT scanners at this facility use dose modulation, iterative reconstruction, and/or weight based d osing when appropriate to reduce radiation dose to as low as reasonably achievable (ALARA). [facility]: Dose Right [facility]: CareDose [facility]: Dose Right [facility]: Teradose 4D [facility]: [employer] RADIATION DOSE: CT Rad equipment meets quality standard of care and radiation dose reduction techniq ues were employed. CTDIvol: 53.2 mGy. DLP: 1044 mGy-cm. mGy. LIMITATIONS: None. FINDINGS: VENTRICLES: Prominent. CEREBRUM: No masses. No hemorrhage. No midline shift. Areas of low density in the white matter mos t likely due to chronic micro-vascular ischemic change. No evidence for acute infarction. CEREBELLUM: No masses. No hemorrhage. No alteration of density. No evidence for acute infarction. EXTRAAXIAL SPACES: Mild age-related involutional change. No fluid collections. No masses. ORBITS AND GLOBE: No intra- or extraconal masses. Normal contour of globe without masses. CALVARIUM: No fracture. PARANASAL SINUSES: No fluid or mucosal thickening. SOFT TISSUES: No mass or hematoma. OTHER: No other significant finding. IMPRESSION: MILD CHRONIC CHANGES OF ATROPHY AND MICROVASCULAR ISCHEMIA. NO ACUTE PROCESS. EVIDENCE OF ACUTE STROKE: NO. TECHNICAL DOCUMENTATION: JOB ID: [id number] Quality ID # 436: Final reports with documentation of one or more dose reduction techniques (e.g., Au tomated exposure control, adjustment of the mA and/or kV according to patient size, use of iterative reconstruction technique) 2010 [employer]- All Rights Reserved Reading location - IP/workstation name: [email or web address]
--- NOTE | 2020-04-27 14:09 | RADIOLOGY REPORT (SQ) ---
EXAM DESCRIPTION: CHEST SINGLE VIEW IMAGES COMPLETED DATE/TIME: 04/27/2020 1:40 pm REASON FOR STUDY: fall; weakness COMPARISON: None. EXAM PARAMETERS: NUMBER OF VIEWS: One view. TECHNIQUE: Single frontal radiographic view of the chest acquired. RADIATION DOSE: NA LIMITATIONS: None. FINDINGS: LUNGS AND PLEURA: No opacities, masses or pneumothorax. No pleural effusion. Emphysematou s change with hyperinflation. MEDIASTINUM AND HILAR STRUCTURES: No masses. Contour normal. HEART AND VASCULAR STRUCTURES: Heart normal in size. Vascular calcifications. BONES: No acute findings. HARDWARE: None in the chest. OTHER: No other significant finding. IMPRESSION: Emphysematous change without evidence of acute cardiopulmonary process. TECHNICAL DOCUMENTATION: JOB ID: [id number] 2010 [employer]- All Rights Reserved Reading location - IP/workstation name: [email or web address]
== END 2020-04-27 21:20 | disposition left against medical advice (07) ==
LOC: ER 13:01
DX: M54.5 Low back pain (principal); R10.10 Upper abdominal pain, unspecified; R53.1 Weakness; W18.30XA Fall on same level, unspecified, initial encounter; Y92.009 Unspecified place in unspecified non-institutional (private) residence as the place of occurrence of the external cause; E78.00 Pure hypercholesterolemia, unspecified; I10 Essential (primary) hypertension
CPT/HCPCS: 36415; 70450; 71045; 72125; 80053; 83690; 84484; 85025; 99281

== ENCOUNTER 2020-05-02 10:58 | Emergency (ER) | payer MEDICARE, OTHER ==
--- NOTE | 2020-05-02 11:50 | ER Document Report ---
ED Medical Screen (RME) - General Chief Complaint: Back Pain Stated Complaint: BACK/HIP PAIN Time Seen by Provider: 05/02/20 11:44 Primary Care Provider: DINAH CORRAL NP [Primary Care Provider] - Follow up as needed Notes: HPI: 85-year-old female presenting for back and abdominal pain after a mechanical fall 4 days ago. Patient states that she has a history of a weak ankle and sometimes gives out she was trying to get up from the toilet and the ankle gave out she fell to the ground landing directly on her buttocks. Patient states she came into the hospital on the and they sent her for imaging of her head and neck but did not evaluate her back. States the abdominal discomfort is more of a soreness that hurts when she moves. Has not noticed any blood in her urine. Does complain of pain across the entire lower back. No new weakness in the lower extremities PHYSICAL EXAMINATION: Limited by positioning in triage. There is tenderness across the lumbar spine and bilateral lumbar musculature. There is mild discomfort across the lower abdomen on palpation I have greeted and performed a rapid initial assessment of this patient. A comprehensive ED assessment and evaluation of the patient, analysis of test results and completion of medical decision making process will be conducted by an additional ED providers. TRAVEL OUTSIDE OF THE [place] IN LAST 30 DAYS: No - Related Data Allergies/Adverse Reactions: trimethoprim [From Proloprim] Allergy (Unknown, Verified 01/15/16 09:51) RASH Past Medical History - Past Medical History Cardiac Medical History: Reports: Hx Coronary Artery Disease, Hx Hypercholesterolemia, Hx Hypertension Denies: Hx Atrial Fibrillation, Hx Congestive Heart Failure, Hx Heart Attack, Hx Peripheral Vascular Disease, Hx Pulmonary Embolism, Hx Heart Murmur Pulmonary Medical History: Reports: Hx Bronchitis, Hx Pneumonia Denies: Hx Asthma, Hx COPD, Hx Respiratory Failure, Hx Sleep Apnea, Hx Tuberculosis Neurological Medical History: Denies: Hx Cerebrovascular Accident, Hx Seizures, Hx Parkinson's Disease Endocrine Medical History: Reports: Hx Hypothyroidism. Denies: Hx Diabetes Mellitus Type 1, Hx Diabetes Mellitus Type 2, Hx Graves' Disease, Hx Hy perthyroidism Renal/ Medical History: Reports: Hx Ovarian Cysts. Denies: Hx End Stage Renal Disease, Hx Kidney Stones, Hx Peritoneal Dialysis, Hx Pelvic Inflammatory Diseas e Malignancy Medical History: Denies: Hx Breast Cancer, Hx Cervical Cancer, Hx Leukemia, Hx Lung Cancer, Hx Ovarian Cancer GI Medical History: Reports: Hx Gastroesophageal Reflux Disease, Hx Hiatal Hernia. Denies: Hx Cirrhosis, Hx Crohn's Disease, Hx Hepatitis, Hx Irritable Bowel, Hx Liver Failure, Hx Pancreatitis, Hx Ulcer, Hx Ulcerative Colitis Musculoskeltal Medical History: Reports Hx Arthritis, Denies Hx Fibromyalgia, Denies Hx Gout, Denies Hx Multiple Sclerosis, Denies Hx Systemic Lupus Erythematosus Skin Medical History: Denies Hx Eczema, Denies Hx MRSA, Denies Hx Psoriasis Psychiatric Medical History: Reports: Hx Depression Denies: Hx Bipolar Disorder, Hx Dementia, Hx Post Traumatic Stress Disorder, Hx Schizophrenia Traumatic Medical History: Reports: Hx Fractures - L ankle Infectious Medical History: Denies: Hx Hepatitis, Hx HIV Past Surgical History: Reports: Hx Appendectomy, Hx Carotid Endarterectomy - Right, Hx Cholecystectomy, Hx Hysterectomy, Hx Orthopedic Surgery - left ankle, Hx Urinary Tract Surgery - bladder sling, Hx Vascular Surgery - right carotid surgery, Other - Bilateral cataracts, bladder surgery (suspension), gum surgery. Denies: Hx Bowel Surgery, Hx Section, Hx Colostomy, Hx Coronary Artery Bypass Graft, Hx Gastric Bypass Surgery, Hx Herniorrhaphy, Hx Mastectomy, Hx Open Heart Surgery, Hx Pacemaker, Hx Tonsillectomy, Hx Tubal Ligation - Immunizations Hx Diphtheria, Pertussis, Tetanus Vaccination: Yes Physical Exam - Vital signs Vitals: Temp Pulse Resp BP Pulse Ox 98.1 F 60 16 152/94 H 94 05/02/20 11:05/02/20 11:05/02/20 11:05/02/20 11:05/02/20 11:09 Course - Vital Signs Vital signs: Temp Pulse Resp BP Pulse Ox 98.1 F 60 16 152/94 H 94 05/02/20 11:05/02/20 11:05/02/20 11:05/02/20 11:05/02/20 11:09 Doctor's Discharge - Discharge Referrals: DINAH CORRAL NP [Primary Care Provider] - Follow up as needed
[2020-05-02 12:33] LABS: ABSOLUTE BASOPHILS # (AUTO) 0.1 10^3/uL (0.0-0.2); ABSOLUTE EOSINOPHILS # (AUTO) 0.2 10^3/uL (0.0-0.6); ABSOLUTE LYMPHOCYTES (AUTO) 1.8 10^3/uL (0.5-4.7); ABSOLUTE MONOCYTES (AUTO) 0.7 10^3/uL (0.1-1.4); ABSOLUTE NEUT (AUTO) 6.9 10^3/uL (1.7-8.2); BASOPHILS % (AUTO) 0.8 % (0-2); EOSINOPHILS % (AUTO) 2.2 % (0-6); HEMOGLOBIN 13.2 g/dL (12.0-15.5); LYMPHOCYTES % (AUTO) 19.1 % (13-45); MEAN CORPUSCULAR HEMOGLOBIN 32.4 pg (27.0-33.4); MEAN CORPUSCULAR HGB CONC 33.8 g/dL (32.0-36.0); MEAN CORPUSCULAR VOLUME 96 fl (80-97); PLATELET COUNT 377 10^3/uL (150-450); RED BLOOD COUNT 4.07 10^6/uL (3.72-5.28); SEGMENTED NEUTROPHILS % (AUTO) 70.9 % (42-78); TOTAL CELLS COUNTED % (AUTO) 100 %; WHITE BLOOD COUNT 9.7 10^3/uL (4.0-10.5)
[2020-05-02 12:39] LABS: ALBUMIN 4.3 g/dL (3.5-5.0); ALKALINE PHOSPHATASE 82 U/L (38-126); ANION GAP 5 (5-19); ASPARTATE AMINO TRANSFERASE 26 U/L (14-36); BILIRUBIN,TOTAL 0.4 mg/dL (0.2-1.3); BLOOD UREA NITROGEN 17 mg/dL (7-20); CARBON DIOXIDE 29 mmol/L (22-30); CHLORIDE 102 mmol/L (98-107); GLUCOSE 111 mg/dL (75-110); POTASSIUM 5.1 mmol/L (3.6-5.0); TOTAL PROTEIN 7.3 g/dL (6.3-8.2)
[2020-05-02 12:45] LABS: INTERNATIONAL RATION (INR) 0.96; PROTHROMBIN TIME 12.8 SEC (11.4-15.4)
[2020-05-02 13:40] LABS: APPEARANCE,URINE CLEAR; BILIRUBIN,URINE NEGATIVE (NEGATIVE); COLOR,URINE YELLOW; GLUCOSE, URINE NEGATIVE (NEGATIVE); KETONES,URINE NEGATIVE (NEGATIVE); LEUKOCYTE ESTERASE,URINE SMALL (NEGATIVE); NITRITE,URINE NEGATIVE (NEGATIVE); PROTEIN,URINE NEGATIVE (NEGATIVE); URINE SPECIFIC GRAVITY 1.014; UROBILINOGEN,URINE NEGATIVE mg/dL (<2.0)
--- NOTE | 2020-05-02 13:56 | RADIOLOGY REPORT (SQ) ---
EXAM DESCRIPTION: CT ABD/PELVIS WITH IV ONLY IMAGES COMPLETED DATE/TIME: 05/02/2020 1:39 pm REASON FOR STUDY: trauma COMPARISON: None. TECHNIQUE: CT scan of the abdomen and pelvis performed using helical scanning technique with dynamic intravenous contrast injection. No oral contrast. Images reviewed with lung, soft tissue, and bone windows. Reconstructed coronal and sagittal MPR images reviewed. Delayed images for evaluation of the urinary system also acquired. All images stored on PACS. All CT scanners at this facility use dose modulation, iterative reconstruction, and/or weight based d osing when appropriate to reduce radiation dose to as low as reasonably achievable (ALARA). [facility]: Dose Right [facility]: CareDose [facility]: Dose Right [facility]: Teradose 4D [facility]: [employer] CONTRAST TYPE AND DOSE: contrast/concentration: Isovue 350.00 mmol/ml; Total Contrast Delivered: 73. 0 ml; Total Saline Delivered: 66.0 ml RENAL FUNCTION: BUN 20, creatinine 0.69 RADIATION DOSE: CT Rad equipment meets quality standard of care and radiation dose reduction techniq ues were employed. CTDIvol: 12.3 - 16.6 mGy. DLP: 1359 mGy-cm.. LIMITATIONS: None. FINDINGS: LOWER CHEST: No significant findings. No nodules or infiltrates. LIVER: Normal size. No masses. No dilated ducts. SPLEEN: Normal size. No focal lesions. PANCREAS: No masses. No significant calcifications. No adjacent inflammation or peripancreatic fluid collections. Pancreatic duct not dilated. GALLBLADDER: Surgically absent. ADRENAL GLANDS: No significant masses or asymmetry. RIGHT KIDNEY AND URETER: No solid masses. Multiple cysts. No significant calcifications. No hydr onephrosis or hydroureter. LEFT KIDNEY AND URETER: No solid masses. Multiple cysts. No significant calcifications. No hydro nephrosis or hydroureter. AORTA AND VESSELS: No aneurysm. No dissection. Renal arteries, SMA, celiac without stenosis. RETROPERITONEUM: No retroperitoneal adenopathy, hemorrhage or masses. BOWEL AND PERITONEAL CAVITY: No masses or inflammatory changes. No free fluid or peritoneal masses. APPENDIX: Surgically absent. PELVIS: No mass. No free fluid. Normal bladder. ABDOMINAL WALL: No masses. No hernias. BONES: Mild wedging of the L1 vertebral body. This has sclerosis along the superior endplate this mo st likely represents chronic injury although a age is indeterminate. OTHER: No other significant finding. IMPRESSION: 1. No acute intra-abdominal or intrapelvic abnormalities. 2. Approximately 10% loss of height at L1. This is sclerotic in is most likely chronic although a a ge is indeterminate. If clinically indicated further evaluation with MRI or bone scan would be helpf ul for further characterization. TECHNICAL DOCUMENTATION: JOB ID: [id number] Quality ID # 436: Final reports with documentation of one or more dose reduction techniques (e.g., Au tomated exposure control, adjustment of the mA and/or kV according to patient size, use of iterative reconstruction technique) 2010 [employer]- All Rights Reserved Reading location - IP/workstation name: [email or web address]
--- NOTE | 2020-05-02 14:18 | ER Document Report ---
ED Fall - General Chief Complaint: Fall Stated Complaint: BACK/HIP PAIN Time Seen by Provider: 05/02/20 11:44 Primary Care Provider: DINAH CORRAL NP [Primary Care Provider] - Follow up as needed Notes: Very pleasant 85-year-old female with past medical history of TIA, CAD, GERD, COPD presenting after she had a fall on April 27. States that she was walking to her bathroom did not trip over anything but fell straight on her bottom that day. Says that she did not hit her head had no loss of consciousness. Denies being on any blood thinners that she is aware of. She denies any numbness or tingling, loss of bowel or bladder control. Feels like she landed more on her right hip. Was seen in the emergency department 2 days after the fall. She had a head CT and imaging of her neck performed. CT showed no brain bleed. And cervical spine imaging showed no acute fracture. Patient continues to have low back pain. Is able to walk, pain with sitting straight up. No numbness/tingling. States she has had abdominal pain for 5 to 6 months. States that this has not changed since her fall. Has taken Tylenol 1,500 mg 3 times daily for her pain states it helps mildly. She spoke with her primary care provider this morning who recommended she return to the emergency department for additional imaging and follow-up. Denies any additional symptoms at this time to include fevers, chills or additional symtpoms. TRAVEL OUTSIDE OF THE [place] IN LAST 30 DAYS: No - Related data Allergies/Adverse Reactions: trimethoprim [From Proloprim] Allergy (Unknown, Verified 01/15/16 09:51) RASH Home Medications: synthroid Past Medical History - Social History Smoking Status: Current Some Day Smoker Family History: Reviewed & Not Pertinent - Past Medical History Cardiac Medical History: Reports: Hx Coronary Artery Disease, Hx Hypercholesterolemia, Hx Hypertension Denies: Hx Atrial Fibrillation, Hx Congestive Heart Failure, Hx Heart Attack, Hx Peripheral Vascular Disease, Hx Pulmonary Embolism, Hx Heart Murmur Pulmonary Medical History: Reports: Hx Bronchitis, Hx Pneumonia Denies: Hx Asthma, Hx COPD, Hx Respiratory Failure, Hx Sleep Apnea, Hx Tuberculosis Neurological Medical History: Denies: Hx Cerebrovascular Accident, Hx Seizures, Hx Parkinson's Disease Endocrine Medical History: Reports: Hx Hypothyroidism. Denies: Hx Diabetes Mellitus Type 1, Hx Diabetes Mellitus Type 2, Hx Graves' Disease, Hx Hyperth yroidism Renal/ Medical History: Reports: Hx Ovarian Cysts. Denies: Hx End Stage Renal Disease, Hx Kidney Stones, Hx Peritoneal Dialysis, Hx Pelvic Inflammatory Disease Malignancy Medical History: Denies: Hx Breast Cancer, Hx Cervical Cancer, Hx L eukemia, Hx Lung Cancer, Hx Ovarian Cancer GI Medical History: Reports: Hx Gastroesophageal Reflux Disease, Hx Hiatal Hernia. Denies: Hx Cirrhosis, Hx Crohn's Disease, Hx Hepatitis, Hx Irritable Bowel, Hx Liver Failure, Hx Pancreatitis, Hx Ulcer, Hx Ulcerative Colitis Musculoskeletal Medical History: Reports Hx Arthritis, Denies Hx Fibromyalgia, D enies Hx Gout, Denies Hx Multiple Sclerosis, Denies Hx Systemic Lupus Erythematosus Skin Medical History: Denies Hx Eczema, Denies Hx MRSA, Denies Hx Psoriasis Psychiatric Medical History: Reports: Hx Depression Denies: Hx Bipolar Disorder, Hx Dementia, Hx Post Traumatic Stress Disorder, Hx Schizophrenia Traumatic Medical History: Reports: Hx Fractures - L ankle Infectious Medical History: Denies: Hx Hepatitis, Hx HIV Past Surgical History: Reports: Hx Appendectomy, Hx Carotid Endarterectomy - Right, Hx Cholecystectomy, Hx Hysterectomy, Hx Orthopedic Surgery - left ankle, Hx Urinary Tract Surgery - bladder sling, Hx Vascular Surgery - right carotid surgery, Other - Bilateral cataracts, bladder surgery (suspension), gum surgery. Denies: Hx Bowel Surgery, Hx Section, Hx Colostomy, Hx Coronary Artery Bypass Graft, Hx Gastric Bypass Surgery, Hx Herniorrhaphy, Hx Mastectomy, Hx Open Heart Surgery, Hx Pacemaker, Hx Tonsillectomy, Hx Tubal Ligation - Immunizations Hx Diphtheria, Pertussis, Tetanus Vaccination: Yes Review of Systems - Review of Systems Constitutional: No symptoms reported EENT: No symptoms reported Cardiovascular: No symptoms reported Respiratory: No symptoms reported Gastrointestinal: See HPI Musculoskeletal: See HPI Skin: No symptoms reported Neurological/Psychological: No symptoms reported Physical Exam - Vital signs Vitals: Temp Pulse Resp BP Pulse Ox 98.1 F 60 16 152/94 H 94 05/02/20 11:09 05/02/20 11:09 05/02/20 11:09 05/02/20 11:09 05/02/20 11:09 Interpretation: Hypertensive - Notes Notes: Adult General: GENERAL: Alert, interacts well. No acute distress HEAD: Normocephalic, atraumatic EYES: Extraocular movements intact. ENT: Airway patent. Nares patent. NECK: Full range of motion. Supple. Trachea midline. LUNGS: Clear to auscultation bilaterally, no wheezes, rales, or rhonchi. No respiratory distress. Nontender chest wall. HEART: Regular rate and rhythm. No murmurs, rubs or gallops. ABDOMEN: Soft, mild tenderness to lower abdomen. Nondistended. Bowel sounds present in all 4 quadrants. No rebound, guarding or masses. GENITOURINARY: Deferred EXTREMITIES: Moves all 4 extremities spontaneously. No edema, normal radial and dorsal pedis pulses bilaterally. No cyanosis. BACK: Posterior hip is tender to palpation bilaterally. She has no cervical midline tenderness or step-offs. Is able to flex and extend her hips, has full ROM with leg flexion. Has pain with rotating on her sides and sitting up. No cervical, thoracic, lumbar midline tenderness. No saddle anesthesia, normal distal neurovascular exam. Moves all extremities with full range of motion. NEUROLOGICAL: Alert and oriented x3. Normal speech. Strength 5/ 5 in all extremities. Intact PSYCH: Normal affect, normal mood. SKIN: Warm, dry, normal turgor. No rashes or lesions noted. Course - Re-evaluation Re-evalutation: 05/02/20 15:[address] scan with patient. No acute fractures noted there is a wedging of the L1 vertebrae which appears to be chronic in nature. Patient continues to be neurologically intact. Patient states that she has taken Tylenol and lidocaine patches without any relief of her pain. Discussed with her at this time I am hesitant to prescribe her any narcotics as she has a history of falling and she is uncertain as to why she keeps falling. Is opiod naive. States she does take Xanax to help her sleep. Talked with her and informed her that does need to follow-up with her primary care provider for additional imaging. I agree to give patient low-dose tramadol at this time. She needs a follow-up with primary care for additional imaging. 05/02/20 16:47 Patient is now sitting up in bed. In no acute distress. States that she had minimal relief of her pain with the tramadol. Patient is asking about muscle relaxors. States that she has taken muscle relaxers in the past. Reports that she has had no side effects from taking muscle relaxors. States last time she took muscle relaxors was approximately 1 year ago. patient is alert and oriented. I discussed at lenght with the patient the risks and side effects of the medication. I also discussed that she should go from sitting to standing very cautiously and discontinue the medication if she becomes light headed or dizzy or sleepy. She does take a Xanax at night I do not recommend that she take Xanax pending Robaxin same time. I will prescribe a low dose and as BID based on patients age and risk of side effects. I discussed with patient that she should return to the emergency department if she develops new or worsening symptoms. Patient acknowledges and verbalizes understanding of instructions and plan. All questions answered. - Vital Signs Vital signs: Temp Pulse Resp BP Pulse Ox 98.4 F 70 20 176/79 H 97 05/02/20 16:59 05/02/20 16:59 05/02/20 16:59 05/02/20 16:59 05/02/20 16:59 - Laboratory Result Diagrams: 05/02/20 12:18 05/02/20 12:18 Laboratory results interpreted by me: 05/02/20 05/02/20 12:18 13:00 Sodium 135.9 L Potassium 5.1 H Glucose 111 H Ur Leukocyte Esterase SMALL H Discharge - Discharge Clinical Impression: Low back pain Qualifiers: Chronicity: acute Back pain laterality: bilateral Sciatica presence: without sciatica Qualified Code(s): M54.5 - Low back pain Condition: Stable Disposition: HOME, SELF-CARE Instructions: Low Back Pain ([facility]) Additional Instructions: Please follow-up with your primary care provider soon as possible. I would nasir mmend that you receive an MRI of your low back. There appears to be no acute fractures of your back or hips on CT scan today. [place] do not take Robaxin and Valium at the same time. Please go from sitting to standing only. If you develop lightheadedness or dizziness please discontinue use of the Robaxin. You may return to the emergency department for any development of new symptoms or worsening symptoms. Prescriptions: Methocarbamol [Robaxin 500 mg Tablet] 500 mg PO BID #5 tablet Referrals: DINAH CORRAL NP [Primary Care Provider] - Follow up as needed
[2020-05-02] MEDS ORDERED: ACETAMINOPHEN 325 MG TABLET PO ONE (15:18)
[2020-05-02] MEDS ORDERED: TRAMADOL HCL 50 MG TABLET PO ONE (15:35)
[2020-05-02 17:00] VITALS: BP 176/79
== END 2020-05-02 17:08 | disposition home or self-care (01) ==
LOC: ER 10:58
DX: M54.5 Low back pain (principal); W19.XXXA Unspecified fall, initial encounter; Y93.89 Activity, other specified; R10.9 Unspecified abdominal pain; R10.819 Abdominal tenderness, unspecified site; I25.10 Atherosclerotic heart disease of native coronary artery without angina pectoris; I10 Essential (primary) hypertension; E03.9 Hypothyroidism, unspecified; Z79.899 Other long term (current) drug therapy; Z88.1 Allergy status to other antibiotic agents; Z87.19 Personal history of other diseases of the digestive system; Z90.49 Acquired absence of other specified parts of digestive tract
CPT/HCPCS: 99284; 36415; 85025; 85610; 80053; 81001; 74177; A9270

== ENCOUNTER 2020-05-07 06:53 | Emergency (ER) | payer MEDICARE, OTHER ==
--- NOTE | 2020-05-07 10:04 | RADIOLOGY REPORT (SQ) ---
EXAM DESCRIPTION: SACRUM AND COCCYX IMAGES COMPLETED DATE/TIME: 05/07/2020 9:51 am REASON FOR STUDY: fall/pain COMPARISON: None. NUMBER OF VIEWS: Three views. TECHNIQUE: AP, lateral, and tilt views of the sacrum and coccyx. LIMITATIONS: None. FINDINGS: MINERALIZATION: Decreased. BONES: No acute fracture or dislocation. No worrisome bone lesions. Degenerative change at the pubi c symphysis. SOFT TISSUES: No soft tissue swelling. No foreign body. OTHER: No other significant finding. IMPRESSION: No evidence of acute bony abnormality of the sacrum and coccyx. Evaluation somewhat hi ited due to decreased osseous mineralization. TECHNICAL DOCUMENTATION: JOB ID: [id number] 2010 [employer]- All Rights Reserved Reading location - IP/workstation name: [email or web address]
--- NOTE | 2020-05-07 10:08 | RADIOLOGY REPORT (SQ) ---
EXAM DESCRIPTION: L SPINE 2 VIEWS IMAGES COMPLETED DATE/TIME: 05/07/2020 9:51 am REASON FOR STUDY: pain/fall 11 days ago COMPARISON: 03/13/2015, CT 05/02/2020 NUMBER OF VIEWS: Two views. TECHNIQUE: AP and lateral radiographic images acquired of the lumbar spine. LIMITATIONS: None. FINDINGS: MINERALIZATION: Decreased. SEGMENTATION: 5 ldi-sso-skeqvll lumbar vertebral bodies. ALIGNMENT: Normal. VERTEBRAE: Mild endplate irregularity and height loss involving the superior endplate of L1. 10 -20% height loss, stable. No additional evidence of compression deformity. DISCS: Grossly preserved height. There is mild height loss at L1-2. Multilevel mild osteophytosis. POSTERIOR ELEMENTS: Lower lumbar facet arthropathy. No clear fracture or pars defect. HARDWARE: None in the spine. Cholecystectomy clips. PARASPINAL SOFT TISSUES: Vascular calcifications. PELVIS: Intact as visualized. No fractures or worrisome bone lesions. SI joints intact. OTHER: No other significant finding. IMPRESSION: 1. Mild superior endplate irregularity and height loss involving the L1 vertebral body suggestive of fracture, stable compared to recent CT. Bone scan or MRI could be considered to evalua te chronicity. 2. Additional degenerative changes as above. TECHNICAL DOCUMENTATION: JOB ID: [id number] 2010 [employer]- All Rights Reserved Reading location - IP/workstation name: [email or web address]
[2020-05-07 10:14] LABS: ABSOLUTE BASOPHILS # (AUTO) 0.1 10^3/uL (0.0-0.2); ABSOLUTE EOSINOPHILS # (AUTO) 0.1 10^3/uL (0.0-0.6); ABSOLUTE LYMPHOCYTES (AUTO) 1.9 10^3/uL (0.5-4.7); ABSOLUTE MONOCYTES (AUTO) 0.5 10^3/uL (0.1-1.4); ABSOLUTE NEUT (AUTO) 5.8 10^3/uL (1.7-8.2); BASOPHILS % (AUTO) 0.7 % (0-2); EOSINOPHILS % (AUTO) 1.4 % (0-6); HEMATOCRIT 39.5 % (36.0-47.0); HEMOGLOBIN 13.4 g/dL (12.0-15.5); LYMPHOCYTES % (AUTO) 22.7 % (13-45); MEAN CORPUSCULAR HGB CONC 33.8 g/dL (32.0-36.0); MEAN CORPUSCULAR VOLUME 95 fl (80-97); MONOCYTES % (AUTO) 6.3 % (3-13); PLATELET COUNT 453 10^3/uL (150-450); RED BLOOD COUNT 4.17 10^6/uL (3.72-5.28); RED CELL DISTRIBUTION WIDTH 14.6 % (11.5-14.0); SEGMENTED NEUTROPHILS % (AUTO) 68.9 % (42-78); TOTAL CELLS COUNTED % (AUTO) 100 %; WHITE BLOOD COUNT 8.4 10^3/uL (4.0-10.5)
[2020-05-07 10:32] LABS: ALBUMIN 4.5 g/dL (3.5-5.0); ALKALINE PHOSPHATASE 92 U/L (38-126); ANION GAP 9 (5-19); BLOOD UREA NITROGEN 16 mg/dL (7-20); CALCIUM 10.1 mg/dL (8.4-10.2); CARBON DIOXIDE 25 mmol/L (22-30); CHLORIDE 103 mmol/L (98-107); POTASSIUM 4.2 mmol/L (3.6-5.0); TOTAL PROTEIN 7.4 g/dL (6.3-8.2)
[2020-05-07 10:33] LABS: ASPARTATE AMINO TRANSFERASE 23 U/L (14-36); GLUCOSE 119 mg/dL (75-110)
[2020-05-07 10:46] LABS: BILIRUBIN,TOTAL 0.5 mg/dL (0.2-1.3)
[2020-05-07] MEDS ORDERED: TRAMADOL HCL 50 MG TABLET PO ONE (10:49)
[2020-05-07 10:50] LABS: ACETAMINOPHEN < 10 ug/mL (10-30)
--- NOTE | 2020-05-07 11:57 | ER Document Report ---
Entered by KEA DAVILA SCRIBE 05/07/20 0857 Acting as scribe for:LYN ROCHA MD ED General - General Chief Complaint: Low Back Pain Stated Complaint: SACRAL PAIN Time Seen by Provider: 05/07/20 08:40 Primary Care Provider: DINAH CORRAL NP [Primary Care Provider] - Follow up as needed Information source: Patient Notes: This 85 year old female patient presents to the emergency department today with complaints of lower back and sacral "burning" pain. Patient states she fell x11 days ago and landed on her tailbone. Patient states she came to the ED and not alessandra was reported to be broken. Patient states she was not given anything for pain so she has been taking Tylenol at home. Patient states she takes multiple doses of x3 500mg tablets of Tylenol daily and reports it has not been relieving the pain. Patient denies taking Tylenol this morning and states her abdomen is sore. Patient states she is able to ambulate, but with pain. Patient states her urine is normal and bowel movements are regular. TRAVEL OUTSIDE OF THE [place] IN LAST 30 DAYS: No - Related Data Allergies/Adverse Reactions: trimethoprim [From Proloprim] Allergy (Unknown, Verified 01/15/16 09:51) RASH Past Medical History - General Information source: Patient - Social History Smoking Status: Unknown if Ever Smoked Family History: Reviewed & Not Pertinent Patient has homicidal ideation: No - Past Medical History Cardiac Medical History: Reports: Hx Coronary Artery Disease, Hx Hypercholesterolemia, Hx Hypertension Pulmonary Medical History: Reports: Hx Bronchitis, Hx Pneumonia Neurological Medical History: Reports: Other - TIA x2 Endocrine Medical History: Reports: Hx Hypothyroidism Renal/ Medical History: Reports: Hx Ovarian Cysts GI Medical History: Reports: Hx Gastroesophageal Reflux Disease, Hx Hiatal Hernia Musculoskeletal Medical History: Reports Hx Arthritis Psychiatric Medical History: Reports: Hx Depression Traumatic Medical History: Reports: Hx Fractures - L ankle Past Surgical History: Reports: Hx Appendectomy, Hx Carotid Endarterectomy - Right, Hx Cholecystectomy, Hx Hysterectomy, Hx Orthopedic Surgery - left ankle, Hx Urinary Tract Surgery - bladder sling, Hx Vascular Surgery - right carotid surgery, Other - Bilateral cataracts, bladder surgery (suspension), gum surgery - Immunizations Hx Diphtheria, Pertussis, Tetanus Vaccination: Yes Review of Systems - Review of Systems Constitutional: No symptoms reported EENT: No symptoms reported Cardiovascular: No symptoms reported Respiratory: No symptoms reported Gastrointestinal: See HPI, Abdominal pain, Other - Regular bowel movement Genitourinary: See HPI Female Genitourinary: No symptoms reported Musculoskeletal: See HPI, Back pain - lower, Other - sacral pain Skin: No symptoms reported Hematologic/Lymphatic: No symptoms reported Neurological/Psychological: No symptoms reported -: Yes All other systems reviewed and negative Physical Exam - Vital signs Vitals: Temp Pulse Resp BP Pulse Ox 98.2 F 66 16 195/69 H 98 05/07/20 07:05 05/07/20 07:05 05/07/20 07:05 05/07/20 07:05 05/07/20 07:05 - General General appearance: Alert In distress: Mild - HEENT Head: Normocephalic, Atraumatic Eyes: Normal Pupils: PERRL - Respiratory Respiratory status: No respiratory distress Chest status: Nontender Breath sounds: Normal Chest palpation: Normal - Cardiovascular Rhythm: Regular Heart sounds: Normal auscultation, S1 appreciated, S2 appreciated Murmur: No - Abdominal Inspection: Normal Distension: No distension Bowel sounds: Normal Tenderness: Nontender - Back Notes: No tenderness with palpation to the lumbar spine. No crepitus. - Extremities General upper extremity: Normal inspection. No: Edema Notes: Bilateral lower extremities are without edema. Sensation intact in bilateral lower extremities with full ROM. - Neurological Neuro grossly intact: Yes Cognition: Normal Orientation: AAOx4 Speech: Normal - Psychological Associated symptoms: Normal affect, Normal mood - Skin Skin Temperature: Warm Skin Moisture: Dry Skin Color: Normal Course - Re-evaluation Re-evalutation: 05/07/20 11:50 Patient has received tramadol to assist in management of sacral pain is most likely a coccyx fracture. Although CT scan and x-ray today did not show that there was a coccyx or sacral fracture patient 11 days ago sat down accidentally on her tailbone and has been hurting in that area since. Tylenol has not been controlling her pain which is why she came back to the emergency department today. - Vital Signs Vital signs: Temp Pulse Resp BP Pulse Ox 98.2 F 66 16 195/69 H 98 05/07/20 07:05 05/07/20 07:05 05/07/20 07:05 05/07/20 07:05 05/07/20 07:05 05/07/20 11:51 Signs shows systolic hypertension. - Laboratory Result Diagrams: 05/07/20 10:02 05/07/20 10:02 Laboratory results interpreted by me: 05/07/20 05/07/20 10:02 10:02 RDW 14.6 H Plt Count 453 H Sodium 136.6 L Glucose 119 H Acetaminophen < 10 L Patient is laboratories show a glucose of 119 and a Tylenol level less than det ectable. Patient has been taking upwards of 3000 mg Tylenol on a daily basis. I instructed patient that I suggest she takes no more than 2000 mg Tylenol on a daily basis. - Diagnostic Test Radiology reviewed: Image reviewed, Reports reviewed Radiology results interpreted by me: 05/07/20 11:51 LS-spine shows an L1 compression fracture that appears old and no change from previous CT scan a few days ago. Sacral and coccyx plain film x-rays does not show any acute fracture. Discharge - Discharge Clinical Impression: Fractured coccyx Condition: Stable Disposition: HOME, SELF-CARE Additional Instructions: Fracture You have a fracture. The typical broken bone requires only protection and sufficient time for healing. "Setting" is necessary only if the bones are crooked or out of position. The physician will re-assess you periodically to make certain that the bone heals without complications. It's important that you follow the instructions given you. The initial treatment is immobilization, elevation of the injury, and cold packs. Not all fractures require a cast. Depending on the location and type of fracture, immobilization may consist of a splint, cast, sling, bulky dressing, or simply rest. The length of time required for healing depends on the location and type of fracture, and on the age of the patient. The treatment plan the physician has outlined for you is customized to your fracture and health condition. Call the doctor or return at once if pain becomes severe, or if severe swelling or numbness develop. You have been evaluated for a coccyx fracture. A CT scan was done a few days ago and did not show any fracture today we did plain film x-rays on you and again we do not see a coccyx fracture however you have all the evidence by history and on exam of tenderness in the area to suggest that there is a coccyx fracture oftentimes these fractures are difficult to see on imaging. I am recommending that we begin you on tramadol as needed for pain along with your taking Tylenol no more than 2000 mg in a 24-hour. We also recommend that you begin using a doughnut pillow for you to sit on it which will give you some relief so that you do not have any pressure on your tailbone while sitting. Follow-up with your primary care doctor for further instructions. Prescriptions: Tramadol HCl [Ultram 50 mg Tablet] 50 mg PO Q8H PRN #14 tab PRN Reason: For Pain Scale 4-5 Referrals: DINAH CORRAL NP [Primary Care Provider] - Follow up as needed I personally performed the services described in the documentation, reviewed and edited the documentation which was dictated to the scribe in my presence, and it accurately records my words and actions.
[2020-05-07 12:15] VITALS: BP 184/71
== END 2020-05-07 12:17 | disposition home or self-care (01) ==
LOC: ER 06:53
DX: S32.2XXA Fracture of coccyx, initial encounter for closed fracture (principal); M54.5 Low back pain; W19.XXXA Unspecified fall, initial encounter
CPT/HCPCS: 99284; 36415; 80307; 85025; 80053; 72220; 72100; A9270

== ENCOUNTER 2020-06-07 11:00 | Emergency (ER) | payer MEDICARE, OTHER ==
--- NOTE | 2020-06-07 11:29 | ER Document Report ---
ED GI/ - General Chief Complaint: Abdominal Pain >50 Stated Complaint: ARM,BACK PAIN Time Seen by Provider: 06/07/20 11:26 Primary Care Provider: DINAH CORRAL, FOREPART RASPER [NURSE PRACTITIONER] - Follow up as needed TRAVEL OUTSIDE OF THE [place] IN LAST 30 DAYS: No - HPI Notes: 06/07/20 11:48 85-year-old female presents with abdominal pain and overall feeling miserable. Patient has been experiencing central and left-sided abdominal pain for the past 2 to 3 weeks. She reports that it feels like "just a pain" and sometimes "hunger pain". She states that she was hoping the pain would just go away. She has not tried any medications at home. She has never had pain like this before. It is constant and does not radiate. She says she had an episode of vomiting a few days ago, described as more so dry heaves. She has nausea. She reports that she had a bowel movement yesterday, described as a "little constipation". No diarrhea. She has had multiple abdominal surgeries before. She denies chest pain or shortness of breath. States she is chronic wheezing and has not used h er home nebulizer in a while. Additionally she states that her left knee hurts, no known injury or fall, states that she woke up one morning sometime ago and it was just hurting, she is still able to ambulate on the leg. Also has noticed a rash under her left breast for the past few days, it is itchy, she states she has been taking a probiotic 06/07/20 11:51 - Related Data Allergies/Adverse Reactions: trimethoprim [From Proloprim] Allergy (Unknown, Verified 01/15/16 09:51) RASH Home Medications: clonidine, alprazolam, levothyroxine, donepezil Past Medical History - Social History Smoking Status: Current Some Day Smoker Frequency of alcohol use: None Drug Abuse: None Family History: Reviewed & Not Pertinent - Past Medical History Cardiac Medical History: Reports: Hx Coronary Artery Disease, Hx Hypercholesterolemia, Hx Hypertension Denies: Hx Atrial Fibrillation, Hx Congestive Heart Failure, Hx Heart Attack, Hx Peripheral Vascular Disease, Hx Pulmonary Embolism, Hx Heart Murmur Pulmonary Medical History: Reports: Hx Bronchitis, Hx COPD, Hx Pneumonia Denies: Hx Asthma, Hx Respiratory Failure, Hx Sleep Apnea, Hx Tuberculosis Neurological Medical History: Denies: Hx Cerebrovascular Accident, Hx Seizures, Hx Parkinson's Disease Endocrine Medical History: Reports: Hx Hypothyroidism. Denies: Hx Diabetes Mellitus Type 1, Hx Diabetes Mellitus Type 2, Hx Graves' Disease, Hx Hyperthyroidism Renal/ Medical History: Reports: Hx Ovarian Cysts. Denies: Hx End Stage Renal Disease, Hx Kidney Stones, Hx Peritoneal Dialysis, Hx Pelvic Inflammatory Disease Malignancy Medical History: Denies: Hx Breast Cancer, Hx Cervical Cancer, Hx Leukemia, Hx Lung Cancer, Hx Ovarian Cancer GI Medical History: Reports: Hx Gastroesophageal Reflux Disease, Hx Hiatal Hernia. Denies: Hx Cirrhosis, Hx Crohn's Disease, Hx Hepatitis, Hx Irritable Bowel, Hx Liver Failure, Hx Pancreatitis, Hx Ulcer, Hx Ulcerative Colitis Musculoskeletal Medical History: Reports Hx Arthritis, Denies Hx Fibromyalgia, Denies Hx Gout, Denies Hx Multiple Sclerosis, Denies Hx Systemic Lupus Kameron thematosus Skin Medical History: Denies Hx Eczema, Denies Hx MRSA, Denies Hx Psoriasis Psychiatric Medical History: Reports: Hx Depression Denies: Hx Bipolar Disorder, Hx Dementia, Hx Post Traumatic Stress Disorder, Hx Schizophrenia Traumatic Medical History: Reports: Hx Fractures - L ankle Infectious Medical History: Denies: Hx Hepatitis, Hx HIV Past Surgical History: Reports: Hx Appendectomy, Hx Carotid Endarterectomy - Right, Hx Cholecystectomy, Hx Hysterectomy, Hx Oral Surgery - gum surgery, Hx Orthopedic Surgery - left ankle, Hx Urinary Tract Surgery - bladder sling, Hx Vascular Surgery - right carotid surgery, Other - Bilateral cataracts, bladder surgery (suspension), gum surgery. Denies: Hx Bowel Surgery, Hx Section, Hx Colostomy, Hx Coronary Artery Bypass Graft, Hx Gastric Bypass Surgery, Hx Herniorrhaphy, Hx Mastectomy, Hx Open Heart Surgery, Hx Pacemaker, Hx Tonsillectomy, Hx Tubal Ligation - Immunizations Hx Diphtheria, Pertussis, Tetanus Vaccination: Yes Review of Systems - Review of Systems Constitutional: denies: Fever EENT: No symptoms reported Cardiovascular: denies: Chest pain Respiratory: Wheezing Gastrointestinal: Abdominal pain, Nausea, Vomiting, Constipation. denies: Diarrhea Genitourinary: denies: Dysuria Musculoskeletal: Joint pain Skin: Rash Hematologic/Lymphatic: No symptoms reported Neurological/Psychological: No symptoms reported Physical Exam - Vital signs Vitals: Temp Pulse Resp BP Pulse Ox 97.9 F 74 18 160/80 H 94 06/07/20 11:00 06/07/20 11:00 06/07/20 11:00 06/07/20 11:00 06/07/20 11:00 Interpretation: Hypertensive - General General appearance: Appears well In distress: None - HEENT Head: Normocephalic, Atraumatic Eyes: Normal Pupils: PERRL - Respiratory Respiratory status: No respiratory distress Breath sounds: Wheezing - Cardiovascular Rhythm: Regular Heart sounds: Normal auscultation Normal capillary refill: Yes - Abdominal Inspection: Obese Distension: No distension Bowel sounds: Normal Tenderness: Tender - Suprapubic, left lower quadrant, left upper quadrant - Extremities Knee: Other - Left knee: No swelling or erythema, normal range of motion, mild tenderness to medial joint line - Neurological Neuro grossly intact: Yes Cognition: Normal Orientation: AAOx4 - Skin Skin Temperature: Warm Skin irregularity: Rash - Superficial fungal appearing rash under left breast intertriginous area Course - Re-evaluation Re-evalutation: 06/07/20 11:57 85-year-old female with abdominal pain x2 to 3 weeks. She is nontoxic appearing, afebrile, not tachycardic but mildly hypertensive. She does have tenderness to her left side of her abdomen, overall non-peritoneal. She has had history of appendectomy, cholecystectomy and hysterectomy. CT abdomen ordered to assess for obstruction versus diverticulitis versus colitis versus other intra-abdominal infection. Possibly could be related to GERD versus gastritis. Will treat symptoms with Zofran, Pepcid, and small fluid bolus. Additionally she is wheezing, which she reports is chronic, DuoNeb ordered. Check EKG though no cardiac symptoms expressed. Initially complains of left knee pain, is ambulatory, has mild tenderness, low suspicion for fracture but will check x- ray. Also has fungal appearing rash under left breast, will Rx topical antifungal if discharge. 06/07/20 12:12 06/07/20 14:26 And 2 reassessed patient now that she is back from radiology. She reports that her symptoms have not improved, additional dose of morphine ordered. Her wheezing has improved. 06/07/20 15:22 CT abdomen images and report reviewed. Diverticulosis without diverticulitis. There is some small bowel changes concerning for enteritis. No obstruction. 06/07/20 15:26 Patient reevaluated. She looks markedly improved. She is up and ambulatory. Her son is here, discussed CT and lab results with them. Urine needs to be collected. Anticipate discharge after urine results. 06/07/20 16:22 Patient has tolerated p.o. She remains symptom-free. Discussed need for follow-up, return precautions given. Stable at time of discharge. - Vital Signs Vital signs: Temp Pulse Resp BP Pulse Ox 97.9 F 74 18 160/80 H 94 06/07/20 11:00 06/07/20 11:00 06/07/20 11:00 06/07/20 11:00 06/07/20 11:00 - Laboratory Result Diagrams: 06/07/20 11:28 06/07/20 11:28 Laboratory results interpreted by me: 06/07/20 06/07/20 11:28 15:35 Sodium 134.5 L Carbon Dioxide 31 H Glucose 118 H Ur Leukocyte Esterase SMALL H No leukocytosis or left shift. No acute anemia. Electrolytes are okay. There is no anion gap. No elevations of LFTs or T bili to suggest acute hepatobiliary process. 06/07/20 16:15 No UTI - Diagnostic Test Radiology reviewed: Image reviewed, Reports reviewed - EKG Interpretation by Me Additional EKG results interpreted by me: 06/07/20 14:29 EKG interpreted by me. Sinus rhythm with rate of 72. Narrow QRS and QTC within normal limits. There are some T wave abnormalities. Evidence of LVH. Discharge - Discharge Clinical Impression: Enteritis Condition: Stable Disposition: HOME, SELF-CARE Instructions: Abdominal Pain ([facility]) Additional Instructions: Please begin use of daily antacid, such as Pepcid/famotidine or any other nohy-qhl-[id number] preparation. Try to adhere to a bland diet. Please have close follow-up with your primary care doctor. Return to the ED for worsening symptoms or new symptoms that are concerning. Referrals: DINAH CORRAL FOREPART RASPER [NURSE PRACTITIONER] - Follow up as needed Print Language: Maltese
[2020-06-07 11:41] LABS: ABSOLUTE BASOPHILS # (AUTO) 0.1 10^3/uL (0.0-0.2); ABSOLUTE EOSINOPHILS # (AUTO) 0.1 10^3/uL (0.0-0.6); ABSOLUTE LYMPHOCYTES (AUTO) 1.9 10^3/uL (0.5-4.7); ABSOLUTE MONOCYTES (AUTO) 0.9 10^3/uL (0.1-1.4); ABSOLUTE NEUT (AUTO) 7.4 10^3/uL (1.7-8.2); EOSINOPHILS % (AUTO) 1.2 % (0-6); HEMATOCRIT 42.5 % (36.0-47.0); HEMOGLOBIN 14.1 g/dL (12.0-15.5); LYMPHOCYTES % (AUTO) 18.1 % (13-45); MEAN CORPUSCULAR HEMOGLOBIN 31.1 pg (27.0-33.4); MEAN CORPUSCULAR HGB CONC 33.2 g/dL (32.0-36.0); MEAN CORPUSCULAR VOLUME 94 fl (80-97); MONOCYTES % (AUTO) 8.9 % (3-13); PLATELET COUNT 391 10^3/uL (150-450); RED BLOOD COUNT 4.54 10^6/uL (3.72-5.28); RED CELL DISTRIBUTION WIDTH 13.5 % (11.5-14.0); SEGMENTED NEUTROPHILS % (AUTO) 70.8 % (42-78); TOTAL CELLS COUNTED % (AUTO) 100 %; WHITE BLOOD COUNT 10.5 10^3/uL (4.0-10.5)
[2020-06-07] MEDS ORDERED: MORPHINE SULFATE 10 MG/ML INJ IV PRN (11:41)
[2020-06-07] MEDS ORDERED: ONDANSETRON HCL INJ/PF 4 MG/2 ML SDV IV ONE (11:41)
[2020-06-07] MEDS ORDERED: NORMAL SALINE 500 ML IV ONE (11:42)
[2020-06-07] MEDS ORDERED: IPRATROPIUM/ALBUTEROL 0.5-2.5 MG/3 ML AMPUL NEB ONE (11:44)
[2020-06-07] MEDS ORDERED: FAMOTIDINE INJ/PF 20 MG/2 ML SDV IV ONE (11:45)
[2020-06-07 12:01] LABS: ALBUMIN 4.2 g/dL (3.5-5.0); ALKALINE PHOSPHATASE 109 U/L (38-126); ANION GAP 5 (5-19); ASPARTATE AMINO TRANSFERASE 25 U/L (14-36); BILIRUBIN,TOTAL 0.2 mg/dL (0.2-1.3); BLOOD UREA NITROGEN 16 mg/dL (7-20); CALCIUM 10.1 mg/dL (8.4-10.2); CARBON DIOXIDE 31 mmol/L (22-30); CHLORIDE 99 mmol/L (98-107); GLUCOSE 118 mg/dL (75-110); POTASSIUM 4.6 mmol/L (3.6-5.0); TOTAL PROTEIN 7.1 g/dL (6.3-8.2)
[2020-06-07] MEDS ORDERED: MORPHINE SULFATE 10 MG/ML INJ IV ONE ×2 (12:10→14:26)
--- NOTE | 2020-06-07 14:56 | RADIOLOGY REPORT (SQ) ---
EXAM DESCRIPTION: CT ABD/PELVIS WITH IV ORAL IMAGES COMPLETED DATE/TIME: 06/07/2020 2:22 pm REASON FOR STUDY: LUQ/LLQ pain, voming, eval obstuction vs divertic COMPARISON: 05/02/2020 TECHNIQUE: CT scan of the abdomen and pelvis performed using helical scanning technique with dynamic intravenous contrast injection. No oral contrast. Images reviewed with lung, soft tissue, and bone windows. Reconstructed coronal and sagittal MPR images reviewed. Delayed images for evaluation of the urinary system also acquired. All images stored on PACS. All CT scanners at this facility use dose modulation, iterative reconstruction, and/or weight based d osing when appropriate to reduce radiation dose to as low as reasonably achievable (ALARA). [facility]: Dose Right [facility]: CareDose [facility]: Dose Right [facility]: Teradose 4D [facility]: [employer]Works CONTRAST TYPE AND DOSE: contrast/concentration: Isovue 350.00 mmol/ml; Total Contrast Delivered: 73. 0 ml; Total Saline Delivered: 45.0 ml RENAL FUNCTION: BUN 16; creatinine 0.65 RADIATION DOSE: CT Rad equipment meets quality standard of care and radiation dose reduction techniq ues were employed. CTDIvol: 10.4 - 14.5 mGy. DLP: 1190 mGy-cm.. LIMITATIONS: None. FINDINGS: LOWER CHEST: No nodules or infiltrates. LIVER: Normal size. No masses. No dilated ducts. SPLEEN: Normal size. No focal lesions. PANCREAS: No masses. No significant calcifications. No adjacent inflammation or peripancreatic fluid collections. Pancreatic duct not dilated. GALLBLADDER: Surgically absent. ADRENAL GLANDS: No significant masses or asymmetry. RIGHT KIDNEY AND URETER: No solid masses. Multiple small hypoattenuating foci are too small to defin itively characterize, but likely represent small cortical cysts. No significant calcifications. N o hydronephrosis or hydroureter. LEFT KIDNEY AND URETER: No solid masses. Multiple small hypoattenuating foci are too small to defini tively characterize, but likely represent small cortical cysts. No significant calcifications. No hydronephrosis or hydroureter. AORTA AND VESSELS: No aneurysm. No dissection. Incidental note is made of a retroaortic left renal vein. RETROPERITONEUM: No retroperitoneal adenopathy, hemorrhage or masses. BOWEL AND PERITONEAL CAVITY: Colonic diverticula without focal inflammatory changes. Few air-fluid l evels are seen within nondilated loops of small bowel. No evidence of obstruction. APPENDIX: Surgically absent. PELVIS: No mass. No free fluid. Normal bladder. ABDOMINAL WALL: No masses. No hernias. BONES: A previously demonstrated L1 vertebral body compression injury demonstrates short interval pro gression. OTHER: No other significant finding. IMPRESSION: No discrete CT evidence of acute intra-abdominal infectious/inflammatory process. Few s mall bowel air-fluid levels without distention or obstruction may represent an element of enteritis. Short interval progression in the appearance of an L1 vertebral body wedge compression deformity may be related to the patient's symptoms. TECHNICAL DOCUMENTATION: JOB ID: [id number] Quality ID # [id number]: Final reports with documentation of one or more dose reduction techniques (e.g., Au tomated exposure control, adjustment of the mA and/or kV according to patient size, use of iterative reconstruction technique) 2010 [employer]- All Rights Reserved Reading location - IP/workstation name: [email or web address]
[2020-06-07 15:52] LABS: APPEARANCE,URINE CLEAR; BILIRUBIN,URINE NEGATIVE (NEGATIVE); COLOR,URINE STRAW; GLUCOSE, URINE NEGATIVE (NEGATIVE); KETONES,URINE NEGATIVE (NEGATIVE); LEUKOCYTE ESTERASE,URINE SMALL (NEGATIVE); NITRITE,URINE NEGATIVE (NEGATIVE); PROTEIN,URINE NEGATIVE (NEGATIVE); URINE SPECIFIC GRAVITY 1.047; UROBILINOGEN,URINE NEGATIVE mg/dL (<2.0)
[2020-06-07 16:32] VITALS: BP 154/60
--- NOTE | 2020-06-07 16:51 | RADIOLOGY REPORT (SQ) ---
EXAM DESCRIPTION: KNEE LEFT 3 VIEWS IMAGES COMPLETED DATE/TIME: 06/07/2020 12:13 pm REASON FOR STUDY: pain with walking COMPARISON: None. NUMBER OF VIEWS: Three views. TECHNIQUE: AP, lateral, and sunrise patella radiographic images acquired of the left knee. LIMITATIONS: None. FINDINGS: MINERALIZATION: Osteopenia. BONES: No acute fracture or dislocation. No worrisome bone lesions. There appears to be a somewhat pr ominent medial patellar spur ; question previous trauma. JOINT: No effusion. 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 OTHER: Atherosclerotic vascular calcifications are demonstrated. IMPRESSION: Tricompartmental degenerative changes. No evidence of acute osseous injury. TECHNICAL DOCUMENTATION: JOB ID: [id number] 2010 [employer]- All Rights Reserved Reading location - IP/workstation name: [email or web address]
--- NOTE | 2020-06-07 19:56 | EKG REPORT ---
SEVERITY:- ABNORMAL ECG - SINUS RHYTHM BIATRIAL ABNORMALITIES CONSIDER RIGHT VENTRICULAR HYPERTROPHY PROBABLE LEFT VENTRICULAR HYPERTROPHY : Confirmed by: Rakesh Jenkins MD 07-Jun-2020 19:56:20
== END 2020-06-07 16:32 | disposition home or self-care (01) ==
LOC: ER 11:00
DX: K52.9 Noninfective gastroenteritis and colitis, unspecified (principal); R10.9 Unspecified abdominal pain; M54.9 Dorsalgia, unspecified; R11.0 Nausea; R21 Rash and other nonspecific skin eruption; Z88.8 Allergy status to other drugs, medicaments and biological substances; F17.200 Nicotine dependence, unspecified, uncomplicated; I25.10 Atherosclerotic heart disease of native coronary artery without angina pectoris; I10 Essential (primary) hypertension
CPT/HCPCS: 93005; 96376; 94640; 99285; 96374; 96375; 36415; 83690; 85025; 80053; 81001; 73562; 74177; 93010; J2270; J2405; J7040; S0028

== ENCOUNTER → 2020-06-27 | Outpatient (CLI) | payer MEDICARE, OTHER ==
[2020-06-27 11:41] LABS: HEMATOCRIT 42.6 % (36.0-47.0); HEMOGLOBIN 14.2 g/dL (12.0-15.5); MEAN CORPUSCULAR HEMOGLOBIN 30.8 pg (27.0-33.4); MEAN CORPUSCULAR HGB CONC 33.3 g/dL (32.0-36.0); MEAN CORPUSCULAR VOLUME 92 fl (80-97); PLATELET COUNT 415 10^3/uL (150-450); RED BLOOD COUNT 4.62 10^6/uL (3.72-5.28); RED CELL DISTRIBUTION WIDTH 13.5 % (11.5-14.0); WHITE BLOOD COUNT 8.4 10^3/uL (4.0-10.5)
[2020-06-27 12:09] LABS: ALBUMIN 4.5 g/dL (3.5-5.0); ALKALINE PHOSPHATASE 87 U/L (38-126); ANION GAP 9 (5-19); ASPARTATE AMINO TRANSFERASE 25 U/L (14-36); BILIRUBIN,DIRECT 0.3 mg/dL (0.0-0.4); BILIRUBIN,TOTAL 0.5 mg/dL (0.2-1.3); BLOOD UREA NITROGEN 21 mg/dL (7-20); CALCIUM 9.9 mg/dL (8.4-10.2); CARBON DIOXIDE 29 mmol/L (22-30); CHLORIDE 99 mmol/L (98-107); GLUCOSE 105 mg/dL (75-110); POTASSIUM 4.6 mmol/L (3.6-5.0); TOTAL PROTEIN 7.6 g/dL (6.3-8.2)
== END ==
LOC: OD 11:12
PROVIDERS: ATTEND Internal Medicine Gastroenterology
DX: R10.13 Epigastric pain (principal)
CPT/HCPCS: 36415; 80053; 83690; 85027

== ENCOUNTER 2020-06-29 14:44 | Emergency (ER) | payer MEDICARE, OTHER ==
[2020-06-29] MEDS ORDERED: NORMAL SALINE 500 ML IV ONE (15:04)
--- NOTE | 2020-06-29 15:07 | ER Document Report ---
ED Medical Screen (RME) - General Chief Complaint: Abdominal Pain Stated Complaint: ABDOMINAL PAIN Time Seen by Provider: 06/29/20 14:53 Primary Care Provider: SOURAV ALMAGUER MD [Primary Care Provider] - Follow up as needed Mode of Arrival: Wheelchair Information source: Patient Notes: 85-year-old female presented to ED for complaint of upper abdominal pain times a month or more. She states she has an endoscopy scheduled for 11 AM on Thursday. She states the pain is intense and sharp right now. She states her pain is a 5 out of 5. She states she had a little sera yesterday for bowel movement and no bowel movement today. She does have a history of constipation. She also has a history of TIAs x2 chronic headaches UTIs hypothyroid high blood pressure chol esterol coronary artery disease reflux and COPD. She states she has cut down to just 1 cigarette a day and does not drink or use any drugs. Patient is alert oriented respirations regular nonlabored speaking in full sentences. TRAVEL OUTSIDE OF THE [place] IN LAST 30 DAYS: No - Related Data Allergies/Adverse Reactions: trimethoprim [From Proloprim] Allergy (Unknown, Verified 06/29/20 15:04) RASH Past Medical History - Social History Chew tobacco use (# tins/day): No Frequency of alcohol use: None Drug Abuse: None - Past Medical History Cardiac Medical History: Reports: Hx Coronary Artery Disease, Hx Hypercholesterolemia, Hx Hypertension Denies: Hx Atrial Fibrillation, Hx Congestive Heart Failure, Hx Heart Attack, Hx Peripheral Vascular Disease, Hx Pulmonary Embolism, Hx Heart Murmur Pulmonary Medical History: Reports: Hx Bronchitis, Hx COPD, Hx Pneumonia Denies: Hx Asthma, Hx Respiratory Failure, Hx Sleep Apnea, Hx Tuberculosis Neurological Medical History: Denies: Hx Cerebrovascular Accident, Hx Seizures, Hx Parkinson's Disease Endocrine Medical History: Reports: Hx Hypothyroidism. Denies: Hx Diabetes Mellitus Type 1, Hx Diabetes Mellitus Type 2, Hx Graves' Disease, Hx Hyperthyroidism Renal/ Medical History: Reports: Hx Ovarian Cysts. Denies: Hx End Stage Renal Disease, Hx Kidney Stones, Hx Peritoneal Dialysis, Hx Pelvic Inflammatory Disease Malignancy Medical History: Denies: Hx Breast Cancer, Hx Cervical Cancer, Hx Hair kemia, Hx Lung Cancer, Hx Ovarian Cancer GI Medical History: Reports: Hx Gastroesophageal Reflux Disease, Hx Hiatal Hernia. Denies: Hx Cirrhosis, Hx Crohn's Disease, Hx Hepatitis, Hx Irritable Bowel, Hx Liver Failure, Hx Pancreatitis, Hx Ulcer, Hx Ulcerative Colitis Musculoskeltal Medical History: Reports Hx Arthritis, Denies Hx Fibromyalgia, Denies Hx Gout, Denies Hx Multiple Sclerosis, Denies Hx Systemic Lupus Erythematosus Skin Medical History: Denies Hx Eczema, Denies Hx MRSA, Denies Hx Psoriasis Psychiatric Medical History: Reports: Hx Depression Denies: Hx Bipolar Disorder, Hx Dementia, Hx Post Traumatic Stress Disorder, Hx Schizophrenia Traumatic Medical History: Reports: Hx Fractures - L ankle Infectious Medical History: Denies: Hx Hepatitis, Hx HIV Past Surgical History: Reports: Hx Appendectomy, Hx Carotid Endarterectomy - Right, Hx Cholecystectomy, Hx Hysterectomy, Hx Oral Surgery - gum surgery, Hx Orthopedic Surgery - left ankle, Hx Urinary Tract Surgery - bladder sling, Hx Vascular Surgery - right carotid surgery, Other - Bilateral cataracts, bladder surgery (suspension), gum surgery. Denies: Hx Bowel Surgery, Hx Section, Hx Colostomy, Hx Coronary Artery Bypass Graft, Hx Gastric Bypass Surgery, Hx Herniorrhaphy, Hx Mastectomy, Hx Open Heart Surgery, Hx Pacemaker, Hx Tonsillectomy, Hx Tubal Ligation - Immunizations Hx Diphtheria, Pertussis, Tetanus Vaccination: Yes Physical Exam - Vital signs Vitals: Temp Pulse Resp BP Pulse Ox 97.7 F 61 22 H 170/78 H 96 06/29/20 14:53 06/29/20 14:53 06/29/20 14:53 06/29/20 14:53 06/29/20 14:53 Course - Vital Signs Vital signs: Temp Pulse Resp BP Pulse Ox 97.7 F 61 22 H 170/78 H 96 06/29/20 14:53 06/29/20 14:53 06/29/20 14:53 06/29/20 14:53 06/29/20 14:53 Doctor's Discharge - Discharge Referrals: SOURAV ALMAGUER MD [Primary Care Provider] - Follow up as needed
[2020-06-29 15:45] LABS: ABSOLUTE BASOPHILS # (AUTO) 0.1 10^3/uL (0.0-0.2); ABSOLUTE EOSINOPHILS # (AUTO) 0.2 10^3/uL (0.0-0.6); ABSOLUTE LYMPHOCYTES (AUTO) 2.2 10^3/uL (0.5-4.7); ABSOLUTE MONOCYTES (AUTO) 0.6 10^3/uL (0.1-1.4); ABSOLUTE NEUT (AUTO) 5.8 10^3/uL (1.7-8.2); BASOPHILS % (AUTO) 0.7 % (0-2); EOSINOPHILS % (AUTO) 1.7 % (0-6); HEMATOCRIT 41.7 % (36.0-47.0); HEMOGLOBIN 13.9 g/dL (12.0-15.5); MEAN CORPUSCULAR HEMOGLOBIN 30.8 pg (27.0-33.4); MEAN CORPUSCULAR HGB CONC 33.4 g/dL (32.0-36.0); MEAN CORPUSCULAR VOLUME 92 fl (80-97); PLATELET COUNT 408 10^3/uL (150-450); RED BLOOD COUNT 4.53 10^6/uL (3.72-5.28); RED CELL DISTRIBUTION WIDTH 13.3 % (11.5-14.0); SEGMENTED NEUTROPHILS % (AUTO) 65.6 % (42-78); TOTAL CELLS COUNTED % (AUTO) 100 %; WHITE BLOOD COUNT 8.9 10^3/uL (4.0-10.5)
--- NOTE | 2020-06-29 15:49 | RADIOLOGY REPORT (SQ) ---
EXAM DESCRIPTION: ACUTE ABDOMEN SERIES IMAGES COMPLETED DATE/TIME: 06/29/2020 3:40 pm REASON FOR STUDY: Upper abdominal pain. No BM today sera yesterd COMPARISON: None. NUMBER OF VIEWS: Three views. TECHNIQUE: Frontal chest, supine abdomen and upright/decubitus abdomen radiographic images acquired. LIMITATIONS: None. FINDINGS: CHEST: Lungs clear of infiltrates. FREE AIR: None. No abnormal gas collections. BOWEL GAS PATTERN: There is a moderate amount of retained stool. CALCIFICATIONS: No suspicious calcifications. HARDWARE: None in the abdomen. SOFT TISSUES: No gross mass or suggestion of organomegaly. BONES: No acute fracture. No worrisome bone lesions. OTHER: No other significant finding. IMPRESSION: Moderate retained stool. No gross constipation. TECHNICAL DOCUMENTATION: JOB ID: [id number] 2010 [employer]- All Rights Reserved Reading location - IP/workstation name: [email or web address]
[2020-06-29 16:07] LABS: ALBUMIN 4.3 g/dL (3.5-5.0); ALKALINE PHOSPHATASE 87 U/L (38-126); ANION GAP 8 (5-19); ASPARTATE AMINO TRANSFERASE 26 U/L (14-36); BILIRUBIN,DIRECT 0.2 mg/dL (0.0-0.4); BILIRUBIN,TOTAL 0.4 mg/dL (0.2-1.3); BLOOD UREA NITROGEN 21 mg/dL (7-20); CALCIUM 9.8 mg/dL (8.4-10.2); CARBON DIOXIDE 30 mmol/L (22-30); CHLORIDE 98 mmol/L (98-107); GLUCOSE 111 mg/dL (75-110); POTASSIUM 4.7 mmol/L (3.6-5.0)
--- NOTE | 2020-06-29 18:48 | ER Document Report ---
ED Medical Screen (RME) - General Chief Complaint: Abdominal Pain Stated Complaint: ABDOMINAL PAIN Time Seen by Provider: 06/29/20 14:53 Primary Care Provider: SOURAV ALMAGUER MD [Primary Care Provider] - Follow up as needed Mode of Arrival: Wheelchair Notes: 06/29/20 14:58 - ED Nursing Note by DESI FUNES Num: [id number] : 1935 Patient Age: 85 pt arrives to Er today for c/o upper mid abdominal pain for past month, pt states pain is sharp, pt denies nausea and vomiting, pt denies fever, denies diarrhea, pt states she has also had Constipation, pt states she had very small BM that was "sera" pt is alert and oriented x4 skin warm and dry. ED Medical Screen (Jacob notes) - General Chief Complaint: Abdominal Pain Stated Complaint: ABDOMINAL PAIN Time Seen by Provider: 06/29/20 14:53 Primary Care Provider: SOURAV ALMAGUER MD [Primary Care Provider] - Follow up as needed Mode of Arrival: Wheelchair Information source: Patient Notes: 85-year-old female presented to ED for complaint of upper abdominal pain times a month or more. She states she has an endoscopy scheduled for 11 AM on Thursday. She states the pain is intense and sharp right now. She states her pain is a 5 out of 5. She states she had a little sera yesterday for bowel movement and no bowel movement today. She does have a history of constipation. She also has a history of TIAs x2 chronic headaches UTIs hypothyroid high blood pressure cholesterol coronary artery disease reflux and COPD. She states she has cut down to just 1 cigarette a day and does not drink or use any drugs. Patient is alert oriented respirations regular nonlabored speaking in full sentences. TRAVEL OUTSIDE OF THE [place] IN LAST 30 DAYS: No My notes 85-year-old female arrives with 1 month history of periumbilical pain that is progressively getting worse until today it was severe 10 out of 10. She asked her to get her to the hospital and she reports she never comes to the hospital. She denies any diabetes problems and she denies any hypertension problems. She does has a history of constipation and COPD and CAD. Patient reports she has heavy breathing along with her diffuse abdominal pain. She has attempted to use milk and other antiacids in order to help her abdominal pain and constipation to no avail. Patient denies any diarrhea denies any dysuria denies any trauma. She reports her could not come because he only weighs 100 pounds or so and has poor health himself. She reports she goes by Freddie although her name is Lynne. TRAVEL OUTSIDE OF THE [place] IN LAST 30 DAYS: No - HPI Onset: Last week Onset/Duration: Sudden Quality of pain: Achy Severity: Severe Pain Level: 5 Associated Symptoms: Abdominal pain Exacerbated by: Movement Relieved by: Denies Similar symptoms previously: Yes Recently seen / treated by doctor: Yes - Related Data Allergies/Adverse Reactions: trimethoprim [From Proloprim] Allergy (Unknown, Verified 06/29/20 15:04) RASH Past Medical History - General Information source: Patient - Social History Cigarette use (# per day): No Chew tobacco use (# tins/day): No Frequency of alcohol use: None Drug Abuse: None Lives with: Family Family history: Reviewed & Not Pertinent - Past Medical History Cardiac Medical History: Reports: Hx Coronary Artery Disease, Hx Hypercholester olemia, Hx Hypertension Denies: Hx Atrial Fibrillation, Hx Congestive Heart Failure, Hx Heart Attack, Hx Peripheral Vascular Disease, Hx Pulmonary Embolism, Hx Heart Murmur Pulmonary Medical History: Reports: Hx Bronchitis, Hx COPD, Hx Pneumonia Denies: Hx Asthma, Hx Respiratory Failure, Hx Sleep Apnea, Hx Tuberculosis Neurological Medical History: Denies: Hx Cerebrovascular Accident, Hx Seizures, Hx Parkinson's Disease Endocrine Medical History: Reports: Hx Hypothyroidism. Denies: Hx Diabetes Mellitus Type 1, Hx Diabetes Mellitus Type 2, Hx Graves' Disease, Hx Hyperthyroidism Renal/ Medical History: Reports: Hx Ovarian Cysts. Denies: Hx End Stage Renal Disease, Hx Kidney Stones, Hx Peritoneal Dialysis, Hx Pelvic Inflammatory Disease Malignancy Medical History: Denies: Hx Breast Cancer, Hx Cervical Cancer, Hx Leukemia, Hx Lung Cancer, Hx Ovarian Cancer GI Medical History: Reports: Hx Gastroesophageal Reflux Disease, Hx Hiatal Antonia ia. Denies: Hx Cirrhosis, Hx Crohn's Disease, Hx Hepatitis, Hx Irritable Bowel, Hx Liver Failure, Hx Pancreatitis, Hx Ulcer, Hx Ulcerative Colitis Musculoskeltal Medical History: Reports Hx Arthritis, Denies Hx Fibromyalgia, Denies Hx Gout, Denies Hx Multiple Sclerosis, Denies Hx Systemic Lupus Erythematosus Skin Medical History: Denies Hx Eczema, Denies Hx MRSA, Denies Hx Psoriasis Psychiatric Medical History: Reports: Hx Depression Denies: Hx Bipolar Disorder, Hx Dementia, Hx Post Traumatic Stress Disorder, Hx Schizophrenia Traumatic Medical History: Reports: Hx Fractures - L ankle Infectious Medical History: Denies: Hx Hepatitis, Hx HIV Past Surgical History: Reports: Hx Appendectomy, Hx Carotid Endarterectomy - Right, Hx Cholecystectomy, Hx Hysterectomy, Hx Oral Surgery - gum surgery, Hx Orthopedic Surgery - left ankle, Hx Urinary Tract Surgery - bladder sling, Hx Vascular Surgery - right carotid surgery, Other - Bilateral cataracts, bladder surgery (suspension), gum surgery. Denies: Hx Bowel Surgery, Hx Section, Hx Colostomy, Hx Coronary Artery Bypass Graft, Hx Gastric Bypass Surgery, Hx Herniorrhaphy, Hx Mastectomy, Hx Open Heart Surgery, Hx Pacemaker, Hx Tonsillectomy, Hx Tubal Ligation - Immunizations Hx Diphtheria, Pertussis, Tetanus Vaccination: Yes Review of Systems - Review of Systems Constitutional: See HPI, Recent illness - Poor appetite for several days EENT: No symptoms reported Cardiovascular: No symptoms reported Respiratory: No symptoms reported Gastrointestinal: See HPI, Abdominal pain, Constipation Genitourinary: No symptoms reported Female Genitourinary: No symptoms reported Musculoskeletal: No symptoms reported Skin: No symptoms reported Hematologic/Lymphatic: No symptoms reported Neurological/Psychological: No symptoms reported Physical Exam - Vital signs Vitals: Temp Pulse Resp BP Pulse Ox 97.7 F 61 22 H 170/78 H 96 06/29/20 14:53 06/29/20 14:53 06/29/20 14:53 06/29/20 14:53 06/29/20 14:53 Interpretation: Hypertensive, Tachypneic - 22 bpm - General General appearance: Alert - HEENT Head: Normocephalic, Atraumatic Eyes: Normal Pupils: PERRL Nasal: Normal Mouth/Lips: Normal Mucous membranes: Dry Pharynx: Normal Neck: Normal - Respiratory Respiratory status: No respiratory distress, Tachypnea Chest status: Nontender Breath sounds: Normal Chest palpation: Normal - Cardiovascular Rhythm: Regular Heart sounds: Normal auscultation Murmur: No - Abdominal Inspection: Normal Distension: No distension Bowel sounds: Hyperactive Tenderness: Tender - Periumbilical Organomegaly: No organomegaly - Rectal Hemorrhoids: Other - deferred - Genitourinary Bimanuel exam: Other - deferred - Back Back: Normal - Extremities General upper extremity: Normal inspection General lower extremity: Normal inspection - Neurological Neuro grossly intact: Yes Cognition: Normal Orientation: AAOx4 Vanderbilt Coma Scale Eye Opening: Spontaneous Carlito Coma Scale Verbal: Oriented Carlito Coma Scale Motor: Obeys Commands Carlito Coma Scale Total: 15 Speech: Normal Motor strength normal: LUE, RUE, LLE, RLE Sensory: Normal - Psychological Associated symptoms: Normal affect - Skin Skin Temperature: Warm Skin Moisture: Dry Course - Vital Signs Vital signs: Temp Pulse Resp BP Pulse Ox 97.7 F 61 22 H 170/78 H 96 06/29/20 14:53 06/29/20 14:53 06/29/20 14:53 06/29/20 14:53 06/29/20 14:53 - Laboratory Result Diagrams: 06/29/20 15:15 06/29/20 15:15 Laboratory results interpreted by me: 06/29/20 06/29/20 15:15 18:35 Sodium 136.3 L BUN 21 H Glucose 111 H Urine Protein 30 H Ur Leukocyte Esterase LARGE H - Diagnostic Test Radiology reviewed: Reports reviewed Critical Care Note - Critical Care Note Comments: I discussed findings with patient and she appears to understand. Doctor's Discharge - Discharge Clinical Impression: UTI (urinary tract infection) Abdominal pain Qualifiers: Abdominal location: unspecified location Qualified Code(s): R10.9 - Unspecified abdominal pain Constipation Qualifiers: Constipation type: unspecified constipation type Qualified Code(s): K59.00 - Constipation, unspecified Hypertension Qualifiers: Hypertension type: unspecified Qualified Code(s): I10 - Essential (primary) hypertension Condition: Good Disposition: HOME, SELF-CARE Additional Instructions: Follow-up with personal doctor this week return to ER as needed take medicines as directed encourage fluids and try to eat some bran muffin and applesauce or apple on a daily basis. Prescriptions: Misoprostol [Cytotec 0.2 mg Tablet] 0.2 mg PO DAILY #20 tablet Levofloxacin [Levaquin 500 mg Tablet] 500 mg PO DAILY #5 tablet Referrals: SOURAV ALMAGUER MD [Primary Care Provider] - Follow up as needed
[2020-06-29 19:09] LABS: APPEARANCE,URINE SLIGHTLY-CLOUDY; BILIRUBIN,URINE NEGATIVE (NEGATIVE); COLOR,URINE YELLOW; GLUCOSE, URINE NEGATIVE (NEGATIVE); KETONES,URINE NEGATIVE (NEGATIVE); LEUKOCYTE ESTERASE,URINE LARGE (NEGATIVE); NITRITE,URINE NEGATIVE (NEGATIVE); PROTEIN,URINE 30 mg/dL (NEGATIVE); URINE SPECIFIC GRAVITY 1.018; UROBILINOGEN,URINE NEGATIVE mg/dL (<2.0)
[2020-06-29] MEDS ORDERED: LEVOFLOXACIN 750 MG/D5W RTU 750 MG/150 ML RTUPB IV ONE (20:58)
--- NOTE | 2020-06-29 21:15 | RADIOLOGY REPORT (SQ) ---
CT ABDOMEN PELVIS WITH IV CONTRAST HISTORY: Periumbilical pain. COMPARISON: 06/07/2020 TECHNIQUE: CT scan of the abdomen and pelvis was performed with IV contrast. This exam was performed according to our departmental dose-optimization program, which includes automated exposure control, adjustment of the mA and/or kV according to patient size and/or use of iterative reconstruction technique. FINDINGS: The lung bases are clear. No pleural or pericardial effusions. There is no hiatal hernia. There has been a prior cholecystectomy. The liver, spleen, pancreas, adrenal glands, and kidneys are unremarkable. No hydronephrosis or urinary stones are seen. There are simple cysts in both kidneys. There has been a prior hysterectomy. There has been a prior appendectomy. The small and large bowel are grossly unremarkable without evidence of inflammation or obstruction. The stomach is also unremarkable. No intraperitoneal free fluid or free air is seen. There is a subacute to chronic compression deformity of L1, also present on prior study. The aorta is normal caliber and contains atherosclerotic calcifications. No abnormal body wall hernia. IMPRESSION: No acute abdominal or pelvic findings.
[2020-06-29] MEDS ORDERED: LACTULOSE SYRUP 20 GM/30 ML UDCUP PO ONE (22:22)
[2020-06-29] MEDS ORDERED: TRAMADOL HCL 50 MG TABLET PO ONE (22:22)
[2020-06-29] MEDS ORDERED: OXYCODONE-ACETAMINOPHEN 5-325 MG TABLET PO ONE (22:27)
[2020-06-30 00:07] VITALS: BP 155/86
== END 2020-06-30 00:04 | disposition home or self-care (01) ==
LOC: ER 14:44
DX: N39.0 Urinary tract infection, site not specified (principal); R10.9 Unspecified abdominal pain; K59.00 Constipation, unspecified; I10 Essential (primary) hypertension; R10.10 Upper abdominal pain, unspecified; R63.0 Anorexia; R06.82 Tachypnea, not elsewhere classified; Z86.73 Personal history of transient ischemic attack (TIA), and cerebral infarction without residual deficits; F17.210 Nicotine dependence, cigarettes, uncomplicated; J44.9 Chronic obstructive pulmonary disease, unspecified; I25.10 Atherosclerotic heart disease of native coronary artery without angina pectoris; Z88.8 Allergy status to other drugs, medicaments and biological substances
CPT/HCPCS: 99285; 96361; 96365; 96366; 36415; 87086; 83690; 85025; 80053; 81001; 74022; 74177; A9270 ×2; J7040; J1956

== ENCOUNTER 2020-07-07 00:19 | Emergency (ER) | payer MEDICARE, OTHER ==
[2020-07-07 02:19] LABS: ABSOLUTE BASOPHILS # (AUTO) 0.1 10^3/uL (0.0-0.2); ABSOLUTE LYMPHOCYTES (AUTO) 1.4 10^3/uL (0.5-4.7); ABSOLUTE MONOCYTES (AUTO) 0.5 10^3/uL (0.1-1.4); ABSOLUTE NEUT (AUTO) 8.4 10^3/uL (1.7-8.2); BASOPHILS % (AUTO) 0.5 % (0-2); EOSINOPHILS % (AUTO) 0.5 % (0-6); HEMATOCRIT 42.6 % (36.0-47.0); HEMOGLOBIN 14.4 g/dL (12.0-15.5); LYMPHOCYTES % (AUTO) 13.6 % (13-45); MEAN CORPUSCULAR HEMOGLOBIN 30.9 pg (27.0-33.4); MEAN CORPUSCULAR HGB CONC 33.7 g/dL (32.0-36.0); MEAN CORPUSCULAR VOLUME 92 fl (80-97); MONOCYTES % (AUTO) 4.9 % (3-13); PLATELET COUNT 366 10^3/uL (150-450); RED BLOOD COUNT 4.65 10^6/uL (3.72-5.28); SEGMENTED NEUTROPHILS % (AUTO) 80.5 % (42-78); TOTAL CELLS COUNTED % (AUTO) 100 %; WHITE BLOOD COUNT 10.4 10^3/uL (4.0-10.5)
[2020-07-07 02:34] LABS: ALBUMIN 4.4 g/dL (3.5-5.0); ALKALINE PHOSPHATASE 77 U/L (38-126); ANION GAP 10 (5-19); ASPARTATE AMINO TRANSFERASE 26 U/L (14-36); BILIRUBIN,DIRECT 0.3 mg/dL (0.0-0.4); BILIRUBIN,TOTAL 0.7 mg/dL (0.2-1.3); BLOOD UREA NITROGEN 12 mg/dL (7-20); CALCIUM 9.9 mg/dL (8.4-10.2); CARBON DIOXIDE 29 mmol/L (22-30); CHLORIDE 97 mmol/L (98-107); GLUCOSE 123 mg/dL (75-110); POTASSIUM 4.9 mmol/L (3.6-5.0); TOTAL PROTEIN 7.1 g/dL (6.3-8.2)
[2020-07-07 02:55] LABS: APPEARANCE,URINE SLIGHTLY-CLOUDY; BILIRUBIN,URINE NEGATIVE (NEGATIVE); COLOR,URINE YELLOW; GLUCOSE, URINE NEGATIVE (NEGATIVE); KETONES,URINE NEGATIVE (NEGATIVE); LEUKOCYTE ESTERASE,URINE MODERATE (NEGATIVE); NITRITE,URINE NEGATIVE (NEGATIVE); PROTEIN,URINE 30 mg/dL (NEGATIVE); URINE SPECIFIC GRAVITY 1.011; UROBILINOGEN,URINE NEGATIVE mg/dL (<2.0)
[2020-07-07 03:40] LABS: CREATINE KINASE MB 0.79 ng/mL (<4.55); TROPONIN I < 0.012 ng/mL
[2020-07-07] MEDS ORDERED: MORPHINE SULFATE 10 MG/ML INJ IV ONE (04:22)
[2020-07-07] MEDS ORDERED: ONDANSETRON HCL INJ/PF 4 MG/2 ML SDV IV ONE (04:22)
--- NOTE | 2020-07-07 04:24 | ER Document Report ---
ED GI/ - General Chief Complaint: Epigastric Pain Stated Complaint: ABDOMINAL PAIN Time Seen by Provider: 07/07/20 04:14 Notes: Patient is an 85-year-old female that comes emergency department for chief complaint of mid abdominal pain. Patient states she has had pain on and off for about 2 months now, however she noticed this more over the past 2 days, she vomited once yesterday, she has not eaten much today. She has had an appendectomy, cholecystectomy, hysterectomy, and had an endoscopy performed [address] Mace. She states that she was told that she had gastritis and she was placed on omeprazole 20 mg for this. She denies any significant improvement. Patient reports normal bowel movements, denies fever, denies chest pain, denies flank pain. TRAVEL OUTSIDE OF THE [place] IN LAST 30 DAYS: No - Related Data Allergies/Adverse Reactions: trimethoprim [From Proloprim] Allergy (Unknown, Verified 06/29/20 15:04) RASH Home Medications: synthroid. xanax. clonidine. ASA. lipito. Albuterol Past Medical History - General Information source: Patient - Social History Smoking Status: Former Smoker Chew tobacco use (# tins/day): No Frequency of alcohol use: None Drug Abuse: None Lives with: Family Family History: Reviewed & Not Pertinent - Past Medical History Cardiac Medical History: Reports: Hx Coronary Artery Disease, Hx Hypercholesterolemia, Hx Hypertension Denies: Hx Atrial Fibrillation, Hx Congestive Heart Failure, Hx Heart Attack, Hx Peripheral Vascular Disease, Hx Pulmonary Embolism, Hx Heart Murmur Pulmonary Medical History: Reports: Hx Bronchitis, Hx COPD, Hx Pneumonia Denies: Hx Asthma, Hx Respiratory Failure, Hx Sleep Apnea, Hx Tuberculosis Neurological Medical History: Denies: Hx Cerebrovascular Accident, Hx Seizures, Hx Parkinson's Disease Endocrine Medical History: Reports: Hx Hypothyroidism. Denies: Hx Diabetes Mellitus Type 1, Hx Diabetes Mellitus Type 2, Hx Graves' Disease, Hx Hyperthyroidism Renal/ Medical History: Reports: Hx Ovarian Cysts. Denies: Hx End Stage Renal Disease, Hx Kidney Stones, Hx Peritoneal Dialysis, Hx Pelvic Inflammatory Disease Malignancy Medical History: Denies: Hx Breast Cancer, Hx Cervical Cancer, Hx Leukemia, Hx Lung Cancer, Hx Ovarian Cancer GI Medical History: Reports: Hx Gastroesophageal Reflux Disease, Hx Hiatal Hernia. Denies: Hx Cirrhosis, Hx Crohn's Disease, Hx Hepatitis, Hx Irritable Bowel, Hx Liver Failure, Hx Pancreatitis, Hx Ulcer, Hx Ulcerative Colitis Musculoskeletal Medical History: Reports Hx Arthritis, Denies Hx Fibromyalgia, Denies Hx Gout, Denies Hx Multiple Sclerosis, Denies Hx Systemic Lupus Erythematosus Skin Medical History: Denies Hx Eczema, Denies Hx MRSA, Denies Hx Psoriasis Psychiatric Medical History: Reports: Hx Depression Denies: Hx Bipolar Disorder, Hx Dementia, Hx Post Traumatic Stress Disorder, Hx Schizophrenia Traumatic Medical History: Reports: Hx Fractures - L ankle Infectious Medical History: Denies: Hx Hepatitis, Hx HIV Past Surgical History: Reports: Hx Appendectomy, Hx Carotid Endarterectomy - Right, Hx Cholecystectomy, Hx Hysterectomy, Hx Oral Surgery - gum surgery, Hx Orthopedic Surgery - left ankle, Hx Urinary Tract Surgery - bladder sling, Hx Vascular Surgery - right carotid surgery, Other - Bilateral cataracts, bladder s urgery (suspension), gum surgery. Denies: Hx Bowel Surgery, Hx Section, Hx Colostomy, Hx Coronary Artery Bypass Graft, Hx Gastric Bypass Surgery, Hx Herniorrhaphy, Hx Mastectomy, Hx Open Heart Surgery, Hx Pacemaker, Hx Tonsillectomy, Hx Tubal Ligation - Immunizations Hx Diphtheria, Pertussis, Tetanus Vaccination: Yes Review of Systems - Review of Systems Constitutional: No symptoms reported EENT: No symptoms reported Cardiovascular: No symptoms reported Respiratory: No symptoms reported Gastrointestinal: See HPI Genitourinary: No symptoms reported Female Genitourinary: No symptoms reported Musculoskeletal: No symptoms reported Skin: No symptoms reported Hematologic/Lymphatic: No symptoms reported Neurological/Psychological: No symptoms reported Physical Exam - Vital signs Vitals: Temp Pulse Resp BP Pulse Ox 98.2 F 66 20 123/52 L 98 07/07/20 00:07/07/20 00:07/07/20 00:07/07/20 00:07/07/20 00:27 - Notes Notes: GENERAL: Alert, interacts well. No acute distress. Talkative and interactive HEAD: Normocephalic, atraumatic. EYES: Pupils equal, round, and reactive to light. Extraocular movements intact. ENT: Oral mucosa moist, tongue midline. Oropharynx unremarkable. Airway patent. NECK: Full range of motion. Supple. Trachea midline. No lymphadenopathy. LUNGS: Clear to auscultation bilaterally, no wheezes, rales, or rhonchi. No respiratory distress. Non-tender chest wall. HEART: Regular rate and rhythm. No murmur ABDOMEN: There is some generalized tenderness over the mid upper abdomen, nonspecific, no guarding EXTREMITIES: Moves all 4 extremities spontaneously. No edema, normal radial and dorsalis pedis pulses bilaterally. No cyanosis. BACK: no cervical, thoracic, lumbar midline tenderness. No saddle anesthesia, normal distal neurovascular exam. Moves all extremities in full range of motion. NEUROLOGICAL: Alert and oriented x3. Normal speech. Cranial nerves II through XII grossly intact. Strength 5/5 in all extremities. PSYCH: Normal affect, normal mood. SKIN: Warm, dry, normal turgor. No rashes or lesions noted. Course - Re-evaluation Re-evalutation: Patient has mid upper abdominal tenderness which is not new, patient is requesting something for pain, symptoms resolved after 1 mg of morphine IV. Patient remained smiling and well-appearing on reevaluation. Because of recent endoscopy, reported vomiting, reported pain, and advanced age CT of the abdomen and pelvis with IV contrast was performed but with no acute findings. CBC, chemistry generally unremarkable, troponin negative. EKG does show changes compared to prior with inverted T waves. Patient has not complained of any ch est pain. I discussed with Dr. Tsai. Patient is tolerating p.o. and has no current complaints. He recommends cardiology consult. I called and spoke with Dr. Jones, patient's special education professional, he recommends patient not be admitted to the hospital at this time, he recommend she follow-up with him in the office on Thursday and she is to be prescribed low-dose nitroglycerin and to return if she develops chest pain or any other worsening symptoms. I discussed the patient, she states that she is comfortable with this plan, stable and asymptomatic at time of discharge. Note: Urinalysis shows moderate leukocyte esterase, patient denies any urinary symptoms, patient states she was just on an antibiotic and would prefer not to be, culture was placed as a result. - Vital Signs Vital signs: Temp Pulse Resp BP Pulse Ox 98.2 F 66 17 165/79 H 95 07/07/20 00:27 07/07/20 00:27 07/07/20 05:13 07/07/20 04:01 07/07/20 05:13 - Laboratory Result Diagrams: 07/07/20 01:58 07/07/20 01:58 Laboratory results interpreted by me: 07/07/20 07/07/20 07/07/20 01:58 01:58 01:58 Absolute Neuts (auto) 8.4 H Seg Neutrophils % 80.5 H Sodium 135.5 L Chloride 97 L Glucose 123 H Urine Protein 30 H Ur Leukocyte Esterase MODERATE H - EKG Interpretation by Me Additional EKG results interpreted by me: EKG shows sinus rhythm at a rate of 61, QTc of 415, normal axis. There are inverted T waves in leads V3 and V4, also inverted T waves in leads V5 and V6. No ST segment changes in consecutive leads. Discharge - Discharge Clinical Impression: Abdominal pain Qualifiers: Abdominal location: generalized Qualified Code(s): R10.84 - Generalized abdominal pain Condition: Stable Disposition: HOME, SELF-CARE Instructions: Oral Narcotic Medication ([facility]) Additional Instructions: Your CAT scan of the abdomen and work-up did not show any concerning findings in regards to her abdomen. You have been given Pepcid to take along with your omeprazole, only take the provided pain medication if needed, if you do also take MiraLAX to avoid constipation. I spoke with Dr. Jones your special education professional today because of some EKG changes you have, please see him in the office on Thursday, take the nitroglycerin as prescribed. Return if you worsen including developing chest pain, uncontrolled vomiting, severe worsening abdominal pain, fever, or any other concerning or worsening symptoms. Prescriptions: Nitroglycerin 0.3 mg SL ASDIR PRN #30 tab.subl PRN Reason: Famotidine [Pepcid 20 mg Tablet] 20 mg PO BID #12 tablet
[2020-07-07 05:12] VITALS: BP 165/79
--- NOTE | 2020-07-07 06:01 | RADIOLOGY REPORT (SQ) ---
EXAM: CT abdomen and pelvis with IV contrast CLINICAL DATA: 85-year-old female with mid abdominal pain and vomiting TECHNICAL DATA: Axial CT imaging of the abdomen and pelvis was performed following the administration of intravenous contrast.. Oral contrast was not administered. Sagittal and coronal reconstructed images were then performed. The CT study is performed according to ALARA (as low as reasonably achievable) or ALARA/IMAGE GENTLY, with automatic adjustment of mA and/or kV according to patient size. Performed on: 07/07/2020 at 5:01 AM. Comparison: CT abdomen and pelvis with IV contrast performed on 06/29/2020 and 06/07/2020. FINDINGS: Lung bases: The lung bases are clear. Liver:The liver is normal in size and configuration. No focal hepatic abnormalities are identified. There is decreased attenuation of the liver commonly due to fatty infiltration. Spleen:The spleen is normal is size, configuration and attenuation. Gallbladder and bile duct: The gallbladder is surgically absent. There is mild, likely physiologic dilatation of the common duct status post cholecystectomy. Pancreas: The pancreas is grossly normal in size and configuration. Adrenal Glands:The adrenal glands are normal in size and configuration. Kidneys:The kidneys are normal in size and configuration. There is no evidence of hydronephrosis. There is no evidence of nephrolithiasis. There are several small bilateral renal cysts. Stomach:The stomach is grossly normal. There is no definite hiatal hernia. Bowel:The bowel gas pattern is non specific and non obstructive. There is scattered colonic diverticulosis. Appendix: The appendix is surgically absent. Free air:There is no evidence of free air. Free fluid: There is no evidence of free fluid. Vasculature: The aorta is normal in caliber and contour. There are atherosclerotic calcifications along the abdominal aorta and major branch vessels. The inferior vena cava is grossly unremarkable. Lymphadenopathy: No pathologic lymphadenopathy is identified. Bladder: The bladder is well distended and smooth in contour. Reproductive: The uterus is surgically absent. Bones: No acute osseous abnormalities are identified. There is a chronic mild compression fracture of L1. Soft tissues: No focal soft tissue abnormalities are identified. IMPRESSION: 1. No evidence of acute intra-abdominal or intrapelvic pathology. No significant change when compared to the prior study. 2. Remote cholecystectomy, appendectomy and hysterectomy. 3. Multiple small bilateral renal cysts. 4. Scattered colonic diverticulosis. 5. Chronic mild L1 compression fracture. 6. Decreased attenuation of the liver commonly due to fatty infiltration.
[2020-07-07] MEDS ORDERED: HYDROCODONE/ACETAMINOPHEN 5-325 MG (6 TAB/ER DISP) PO PRN (06:51)
--- NOTE | 2020-07-07 08:20 | EKG REPORT ---
SEVERITY:- ABNORMAL ECG - SINUS RHYTHM CONSIDER POSTERIOR INFARCT REPOL ABNRM SUGGESTS ISCHEMIA, DIFFUSE , THESE ARE NEW COMPARED TO 06/07/20 EKG !! : Confirmed by: Rakesh Jenkins MD 07-Jul-2020 08:20:11
== END 2020-07-07 07:06 | disposition home or self-care (01) ==
LOC: ER 00:19
DX: R10.84 Generalized abdominal pain (principal); R10.13 Epigastric pain; I25.10 Atherosclerotic heart disease of native coronary artery without angina pectoris; E78.00 Pure hypercholesterolemia, unspecified; I10 Essential (primary) hypertension
CPT/HCPCS: 93005; 99285; 96374; 96375; 36415; 87086; 82553; 82550; 83690; 85025; 80053; 81001; 84484; 74177; 93010; J2270; J2405; A9270

== ENCOUNTER 2020-07-17 17:42 | Emergency (ER) | payer MEDICARE, OTHER ==
--- NOTE | 2020-07-17 19:12 | ER Document Report ---
ED Medical Screen (RME) - General Chief Complaint: Abdominal Pain Stated Complaint: ABDOMINAL PAIN Time Seen by Provider: 07/17/20 18:24 TRAVEL OUTSIDE OF THE [place] IN LAST 30 DAYS: No - HPI Notes: 07/17/20 18:48 85 yr old female with a hx of CAD, TIA presents today with recurrent epigastric abdominal pain for the last month, but has been reoccurring for over 25 years who was seen by Dr. Gross today and was advised to come to the ER for her recurrent abdominal pain. Patient has had an endoscopy, multiple CT of abdomen without any results. Patient states that she is eating a bland diet to help minimize her pain. Patient states that she has been having hallucinations of seeing people painting in her room that no one else can see, Dr. Gross thinks this may be psychological and unrelated to any medical issue per patient and her granddaughter. Patient states her last colonoscopy was within 10 years. Patient states she has been seen 8 or 9 times in the emergency room for the same complaint. Has avoided any greasy foods. Granddaughter states that hallucinations have become progressively worse. She does take Pepcid for her GERD I have greeted and performed a rapid initial assessment of this patient. A comprehensive ED assessment and evaluation of the patient, analysis of test results and completion of the medical decision making process will be conducted by additional ED providers. PHYSICAL EXAMINATION: GENERAL: Well-appearing, well-nourished and in no acute distress. HEAD: Atraumatic, normocephalic. EYES: Pupils equal round extraocular movements intact, conjunctiva are normal. NECK: Normal range of motion CV: s1, s2 regular abd: Epigastric abdominal pain LUNGS: No respiratory distress Musculoskeletal: Normal range of motion NEUROLOGICAL: Normal speech, normal gait. SKIN: Warm, Dry, normal turgor, no rashes or lesions noted. - Related Data Allergies/Adverse Reactions: trimethoprim [From Proloprim] Allergy (Unknown, Verified 07/17/20 18:24) RASH Home Medications: pepcid. synthroid. clonidine. lovastatin Past Medical History - Social History Chew tobacco use (# tins/day): No Frequency of alcohol use: None Drug Abuse: None Family history: Reviewed & Not Pertinent - Past Medical History Cardiac Medical History: Reports: Hx Coronary Artery Disease, Hx Hypercholesterolemia, Hx Hypertension Denies: Hx Atrial Fibrillation, Hx Congestive Heart Failure, Hx Heart Attack, Hx Peripheral Vascular Disease, Hx Pulmonary Embolism, Hx Heart Murmur Pulmonary Medical History: Reports: Hx Bronchitis, Hx COPD, Hx Pneumonia Denies: Hx Asthma, Hx Respiratory Failure, Hx Sleep Apnea, Hx Tuberculosis Neurological Medical History: Denies: Hx Cerebrovascular Accident, Hx Seizures, Hx Parkinson's Disease Endocrine Medical History: Reports: Hx Hypothyroidism. Denies: Hx Diabetes Mellitus Type 1, Hx Diabetes Mellitus Type 2, Hx Graves' Disease, Hx Hyperthyroidism Renal/ Medical History: Reports: Hx Ovarian Cysts. Denies: Hx End Stage Renal Disease, Hx Kidney Stones, Hx Peritoneal Dialysis, Hx Pelvic Inflammatory Disease Malignancy Medical History: Denies: Hx Breast Cancer, Hx Cervical Cancer, Hx Leukemia, Hx Lung Cancer, Hx Ovarian Cancer GI Medical History: Reports: Hx Gastroesophageal Reflux Disease, Hx Hiatal Hernia. Denies: Hx Cirrhosis, Hx Crohn's Disease, Hx Hepatitis, Hx Irritable Bowel, Hx Liver Failure, Hx Pancreatitis, Hx Ulcer, Hx Ulcerative Colitis Musculoskeltal Medical History: Reports Hx Arthritis, Denies Hx Fibromyalgia, Denies Hx Gout, Denies Hx Multiple Sclerosis, Denies Hx Systemic Lupus Erythematosus Skin Medical History: Denies Hx Eczema, Denies Hx MRSA, Denies Hx Psoriasis Psychiatric Medical History: Reports: Hx Depression Denies: Hx Bipolar Disorder, Hx Dementia, Hx Post Traumatic Stress Disorder, Hx Schizophrenia Traumatic Medical History: Reports: Hx Fractures - L ankle Infectious Medical History: Denies: Hx Hepatitis, Hx HIV Past Surgical History: Reports: Hx Appendectomy, Hx Carotid Endarterectomy - Right, Hx Cholecystectomy, Hx Hysterectomy, Hx Oral Surgery - gum surgery, Hx Orthopedic Surgery - left ankle, Hx Urinary Tract Surgery - bladder sling, Hx Vascular Surgery - right carotid surgery, Other - Bilateral cataracts, bladder surgery (suspension), gum surgery. Denies: Hx Bowel Surgery, Hx Section, Hx Colostomy, Hx Coronary Artery Bypass Graft, Hx Gastric Bypass Surgery, Hx Herniorrhaphy, Hx Mastectomy, Hx Open Heart Surgery, Hx Pacemaker, Hx Tonsillectomy, Hx Tubal Ligation - Immunizations Hx Diphtheria, Pertussis, Tetanus Vaccination: Yes Physical Exam - Vital signs Vitals: Temp Pulse Resp BP Pulse Ox 98.4 F 63 16 124/78 95 07/17/20 18:20 07/17/20 18:20 07/17/20 18:20 07/17/20 18:20 07/17/20 18:20 Course - Vital Signs Vital signs: Temp Pulse Resp BP Pulse Ox 98.4 F 63 16 124/78 95 07/17/20 18:20 07/17/20 18:20 07/17/20 18:20 07/17/20 18:20 07/17/20 18:20
[2020-07-17 19:22] LABS: ABSOLUTE BASOPHILS # (AUTO) 0.1 10^3/uL (0.0-0.2); ABSOLUTE EOSINOPHILS # (AUTO) 0.1 10^3/uL (0.0-0.6); ABSOLUTE LYMPHOCYTES (AUTO) 1.9 10^3/uL (0.5-4.7); ABSOLUTE MONOCYTES (AUTO) 0.7 10^3/uL (0.1-1.4); ABSOLUTE NEUT (AUTO) 6.4 10^3/uL (1.7-8.2); BASOPHILS % (AUTO) 1.1 % (0-2); EOSINOPHILS % (AUTO) 0.8 % (0-6); HEMATOCRIT 41.6 % (36.0-47.0); HEMOGLOBIN 14.5 g/dL (12.0-15.5); LYMPHOCYTES % (AUTO) 20.6 % (13-45); MEAN CORPUSCULAR HEMOGLOBIN 32.2 pg (27.0-33.4); MEAN CORPUSCULAR HGB CONC 34.8 g/dL (32.0-36.0); MEAN CORPUSCULAR VOLUME 93 fl (80-97); MONOCYTES % (AUTO) 7.6 % (3-13); PLATELET COUNT 347 10^3/uL (150-450); SEGMENTED NEUTROPHILS % (AUTO) 69.9 % (42-78); TOTAL CELLS COUNTED % (AUTO) 100 %; WHITE BLOOD COUNT 9.1 10^3/uL (4.0-10.5)
[2020-07-17 19:32] LABS: APPEARANCE,URINE SLIGHTLY-CLOUDY; BILIRUBIN,URINE NEGATIVE (NEGATIVE); COLOR,URINE YELLOW; GLUCOSE, URINE NEGATIVE (NEGATIVE); KETONES,URINE NEGATIVE (NEGATIVE); LEUKOCYTE ESTERASE,URINE MODERATE (NEGATIVE); NITRITE,URINE NEGATIVE (NEGATIVE); PROTEIN,URINE 100 mg/dL (NEGATIVE); URINE SPECIFIC GRAVITY 1.023; UROBILINOGEN,URINE NEGATIVE mg/dL (<2.0)
[2020-07-17 19:47] LABS: ALBUMIN 4.8 g/dL (3.5-5.0); ALKALINE PHOSPHATASE 77 U/L (38-126); ANION GAP 10 (5-19); ASPARTATE AMINO TRANSFERASE 29 U/L (14-36); BILIRUBIN,DIRECT 0.3 mg/dL (0.0-0.4); BILIRUBIN,TOTAL 0.5 mg/dL (0.2-1.3); BLOOD UREA NITROGEN 12 mg/dL (7-20); CALCIUM 10.1 mg/dL (8.4-10.2); CARBON DIOXIDE 33 mmol/L (22-30); CHLORIDE 96 mmol/L (98-107); GLUCOSE 111 mg/dL (75-110); POTASSIUM 4.1 mmol/L (3.6-5.0); TOTAL PROTEIN 7.7 g/dL (6.3-8.2)
--- NOTE | 2020-07-17 20:15 | RADIOLOGY REPORT (SQ) ---
EXAM DESCRIPTION: Single view of the chest and two views of the abdomen CLINICAL HISTORY: 85 years Female, epigastric abd pain COMPARISON: Chest radiograph is compared to April 27, 2020 FINDINGS: Chest: Lungs are hyperinflated. Cardiac and mediastinal silhouette are within normal limits. No pneumothorax or pleural effusion. No free intraperitoneal air. ABDOMEN: Moderate stool is seen scattered throughout the colon. The bowel is not dilated. There is a small amount of air seen also in the small bowel. Clips are present in the right upper quadrant. Rectal vault contains air and stool. There is vascular calcifications. No air-fluid levels or free intraperitoneal air. IMPRESSION: Moderate stool in the colon. No obstruction or free air.
--- NOTE | 2020-07-17 23:43 | ER Document Report ---
ED General - General Chief Complaint: Abdominal Pain Stated Complaint: ABDOMINAL PAIN Time Seen by Provider: 07/17/20 18:24 Primary Care Provider: AAMIR ALLRED MD [NO LOCAL MD] - Follow up as needed TRAVEL OUTSIDE OF THE [place] IN LAST 30 DAYS: No - HPI Notes: Patient presents to the emergency department for evaluation. She has had periumbilical abdominal pain for the last several months. It is intermittent. She actually has had pain similar to this in the past. She states that the pain had been helped by Celexa, she was actually pain-free for years. She was taken off the Celexa and her pain returned. She went back on the Celexa and her pain continues intermittently. She cannot tell me anything that makes it better or worse. Is nonradiating. She has been seen by GI and cardiology, primary care. She has been seen multiple times here for this issue. Currently she is pain- free. They were actually seen by Dr. Jones today, who recommended that she come to the ED for her report of hallucinations. According to granddaughter, the patient has been having visual hallucinations over the last month. They seem to be getting more frequent. Patient believes that there are "[place] people painting her house." She states that when they are not there she can see the lines from them painting. She also believes that she saw her granddaughter, filming a pornographic movie" in her home. There are also possible reports of her hearing country western music at night, but this could be because her leaves the TV on occasionally. They have not talked to primary care about this. She has never been diagnosed with dementia, has not seen neurology. - Related Data Allergies/Adverse Reactions: trimethoprim [From Proloprim] Allergy (Unknown, Verified 07/17/20 18:24) RASH Home Medications: pepcid. synthroid. clonidine. lovastatin Past Medical History - General Information source: Patient, Relative - Social History Smoking Status: Former Smoker Chew tobacco use (# tins/day): No Frequency of alcohol use: None Drug Abuse: None Family History: Reviewed & Not Pertinent Patient has homicidal ideation: No - Past Medical History Cardiac Medical History: Reports: Hx Coronary Artery Disease, Hx Hypercholeste rolemia, Hx Hypertension Denies: Hx Atrial Fibrillation, Hx Congestive Heart Failure, Hx Heart Attack, Hx Peripheral Vascular Disease, Hx Pulmonary Embolism, Hx Heart Murmur Pulmonary Medical History: Reports: Hx Bronchitis, Hx COPD, Hx Pneumonia Denies: Hx Asthma, Hx Respiratory Failure, Hx Sleep Apnea, Hx Tuberculosis Neurological Medical History: Denies: Hx Cerebrovascular Accident, Hx Seizures, Hx Parkinson's Disease Endocrine Medical History: Reports: Hx Hypothyroidism. Denies: Hx Diabetes Mellitus Type 1, Hx Diabetes Mellitus Type 2, Hx Graves' Disease, Hx Hyperthyroidism Renal/ Medical History: Reports: Hx Ovarian Cysts. Denies: Hx End Stage Renal Disease, Hx Kidney Stones, Hx Peritoneal Dialysis, Hx Pelvic Inflammatory Disease Malignancy Medical History: Denies: Hx Breast Cancer, Hx Cervical Cancer, Hx Leukemia, Hx Lung Cancer, Hx Ovarian Cancer GI Medical History: Reports: Hx Gastroesophageal Reflux Disease, Hx Hiatal Her esme. Denies: Hx Cirrhosis, Hx Crohn's Disease, Hx Hepatitis, Hx Irritable Bowel, Hx Liver Failure, Hx Pancreatitis, Hx Ulcer, Hx Ulcerative Colitis Musculoskeletal Medical History: Reports Hx Arthritis, Denies Hx Fibromyalgia, Denies Hx Gout, Denies Hx Multiple Sclerosis, Denies Hx Systemic Lupus Erythematosus Skin Medical History: Denies Hx Eczema, Denies Hx MRSA, Denies Hx Psoriasis Psychiatric Medical History: Reports: Hx Depression Denies: Hx Bipolar Disorder, Hx Dementia, Hx Post Traumatic Stress Disorder, Hx Schizophrenia Traumatic Medical History: Reports: Hx Fractures - L ankle Infectious Medical History: Denies: Hx Hepatitis, Hx HIV Past Surgical History: Reports: Hx Appendectomy, Hx Carotid Endarterectomy - Right, Hx Cholecystectomy, Hx Hysterectomy, Hx Oral Surgery - gum surgery, Hx Orthopedic Surgery - left ankle, Hx Urinary Tract Surgery - bladder sling, Hx Vascular Surgery - right carotid surgery, Other - Bilateral cataracts, bladder surgery (suspension), gum surgery. Denies: Hx Bowel Surgery, Hx Section, Hx Colostomy, Hx Coronary Artery Bypass Graft, Hx Gastric Bypass Surgery, Hx Herniorrhaphy, Hx Mastectomy, Hx Open Heart Surgery, Hx Pacemaker, Hx Tonsillectomy, Hx Tubal Ligation - Immunizations Hx Diphtheria, Pertussis, Tetanus Vaccination: Yes Review of Systems - Review of Systems Constitutional: No symptoms reported EENT: No symptoms reported Cardiovascular: No symptoms reported Respiratory: No symptoms reported Gastrointestinal: See HPI Genitourinary: No symptoms reported Musculoskeletal: No symptoms reported Skin: No symptoms reported Neurological/Psychological: See HPI Physical Exam - Vital signs Vitals: Temp Pulse Resp BP Pulse Ox 98.4 F 63 16 124/78 95 07/17/20 18:20 07/17/20 18:20 07/17/20 18:20 07/17/20 18:20 07/17/20 18:20 - Notes Notes: Vital signs reviewed, please refer to chart. Head is normocephalic, atraumatic. Pupils equal round, reactive to light. Neck is supple without meningismus. Heart is regular rate and rhythm. Lungs are clear to auscultation bilaterally. Abdomen is soft, nontender, normoactive bowel sounds throughout. Extremities without cyanosis, clubbing. Posterior calves are nontender. Peripheral pulses are equal. Skin is warm and dry. Patient is awake, alert, oriented x3. Cranial nerves II - XII are grossly intact without focal neurological deficits. Strength is plus 4 out of 5 bilateral upper and lower extremities. Sensation is intact. Reflexes symmetrical. Intact [id number], rapid alternating movements, [id number]. Course - Re-evaluation Re-evalutation: 07/17/20 23:46 Patient presents to the emergency department for evaluation. This abdominal pain is not new. She has had multiple evaluations for it. Her laboratory investigations failed reveal any significant abnormality. She does have some white cells in her urine, but has no urinary symptoms. I reviewed prior urinalyses, which revealed similar urinary findings, and cultures were negative. I am not inclined to treat at this point, but culture was sent. In regards to her hallucinations, I do believe this is likely secondary to a vascular dementia. I did review an MRI performed last year which showed microvascular changes. She has no focal neurological deficits at this time. I strongly suggest the patient be followed up closely with primary care as well as neurology. Patient's granddaughter will be staying with her at this time. They are to return to the ED with worsening or new concerning symptoms of any sort. - Vital Signs Vital signs: Temp Pulse Resp BP Pulse Ox 98.4 F 63 16 124/78 95 07/17/20 18:20 07/17/20 18:20 07/17/20 18:20 07/17/20 18:20 07/17/20 18:20 - Laboratory Result Diagrams: 07/17/20 19:06 07/17/20 19:06 Laboratory results interpreted by me: 07/17/20 07/17/20 19:06 19:18 Chloride 96 L Carbon Dioxide 33 H Est GFR ( Amer) 52 L Est GFR (MDRD) Non-Af 43 L Glucose 111 H Urine Protein 100 H Ur Leukocyte Esterase MODERATE H - EKG Interpretation by Me Additional EKG results interpreted by me: 07/17/20 23:48 Sinus bradycardia with a rate of 58 bpm. Normal axis and intervals. LVH criteria. T wave inversions in the anterior leads. No significant change in compared to prior study performed in July 2020. Discharge - Discharge Clinical Impression: Periumbilical abdominal pain, Hallucinations Condition: Stable Disposition: HOME, SELF-CARE Instructions: Abdominal Pain ([facility]), Hallucinations ([facility]) Additional Instructions: You need to be evaluated by your primary care provider and neurology as soon as possible. Please continue to take your home medications as previously prescribed. If you develop worsening or new concerning symptoms of any sort, return immediately to the ED for further evaluation. Referrals: AAMIR ALLRED MD [NO LOCAL MD] - Follow up as needed
[2020-07-18 00:18] VITALS: BP 120/74
--- NOTE | 2020-07-18 00:49 | EKG REPORT ---
SEVERITY:- ABNORMAL ECG - SINUS RHYTHM CONSIDER RVH W/ SECONDARY REPOL ABNORMALITY LVH BY VOLTAGE : Confirmed by: Holli Fuller 18-Jul-2020 00:48:51
== END 2020-07-18 00:16 | disposition home or self-care (01) ==
LOC: ER 17:42
DX: R10.33 Periumbilical pain (principal); R44.1 Visual hallucinations; R00.1 Bradycardia, unspecified; I25.10 Atherosclerotic heart disease of native coronary artery without angina pectoris; I10 Essential (primary) hypertension; J44.9 Chronic obstructive pulmonary disease, unspecified; E03.9 Hypothyroidism, unspecified; K21.9 Gastro-esophageal reflux disease without esophagitis; Z79.899 Other long term (current) drug therapy; Z87.891 Personal history of nicotine dependence; Z88.1 Allergy status to other antibiotic agents
CPT/HCPCS: 36415; 74022; 80053; 81001; 83690; 84443; 84484; 85025; 87086; 87088; 93005; 93010; 99285